=== PATIENT | female | born 1960 | race Caucasian/White ===

== ENCOUNTER 2024-10-10 12:37 | Outpatient (REF) | payer MEDICARE, SELFPAY ==
--- OUTSIDE RECORDS SUMMARY | 2024-10-08 23:59 | XMS_ITS | Continuity of Care Document ---
Author Organization [facility] Address [address] [place] [address] [address] [place] [address]- Care Team Providers Care Accounting Coordinator Name Role Phone Ej Thomas MD Primary Care Physician [phone] Encounter [facility] Date(s): 09/08/24 - 10/08/[address] [place] [address]- us Attending Physician: Diane Ramos Admitting Physician: Diane Ramos Referring Physician: Diane Ramos Encounter Type: Triage Allergies, Adverse Reactions, Alerts No Known Allergies Medications Percocet-5 Tablet 2, tablet, By Mouth, Every 4 hours, # 30 tablet, Tot. Refills 0, 10/05/05 8:06:14 AM EDT Start Date: 10/05/05 Stop Date: 10/11/05 Status: Ordered Quantity: 30.0 Unit: tablet Repeat number: 1 traZODone 100 mg oral tablet 90 each, 0 Refill(s), TAKE 1 TABLET BY MOUTH EVERY DAY AT BEDTIME FOR 30 DAYS, Refills 0, 09/08/24 3:49:00 PM EDT, Partial fill upon patient request if the prescription is for a schedule II opioid drug. Start Date: 09/08/24 Status: Ordered Repeat number: 1 Social History Social History Type Response Smoking Status Never (less than 100 in lifetime) entered on: 09/08/24 Sex Sex Representation Female (finding) Patient Care team information Care Team Personnel Name: Ej Thomas MD Position: S Physician - Oncology Member Role: PCP Address: [address] [place] [address] [address] [place] [address] Telecom: Care Team Related Persons Name: SHARON PECK Name: PARENT, PHAM MCWILLIAMS Name: PARENT, SHIRAZ Insurance Providers Guarantor name: [employer] Health Plan Information #: 1 Payer: MEDICARE B Payer Identifier: FITZ Member Number: [id number] Group Number: [employer]Z Subscriber Identifier: [id number] Relationship to Subscriber: self Coverage Type: NA Coverage Verification Date: Telecom: Address:
[2024-10-10 13:08] LABS: MANUAL DIFF FLAG NO
--- OUTSIDE RECORDS SUMMARY | 2024-10-10 13:33 | XMS_ITS | Patient Health Record ---
Author Organization Ej Thomas III, MD Address [address] [address] Care Team Providers Care Vehicle Check In Clerk Name Role Phone Ej Thomas Primary Care Provider Allergies Allergen (clinical drug ingredient) Drug/Non Drug Allergy documented on EMR Reaction Allergy Type Onset Date Status amoxicillin Amoxicillin diarrhea Drug Allergy Act emanuel Sulfur nausea, headaches, stomach pain Drug Allergy Active Results Component Value Reference Range Notes PROFILE, RANDOM (COMPREHENSI VE METABOLIC) Reviewed date:05/09/2024 03:05:32 PM Interpretation: Performing Lab: Notes/Report: TSH (THYROID STIMULATING HOR DARLEEN) Reviewed date:05/09/2024 03:05:43 PM Interpretation: Performing Lab: Notes/Report: CBC WITH AUTO DIFF Reviewed date:05/09/2024 03:05:53 PM Interpretation: Performing Lab: Notes/Report: Free T4 (Free Thyroxine) Reviewed date:05/09/2024 03:06:07 PM Interpretation: Performing Lab: Notes/Report: Reason For Referral Reason Evaluate and Treat New Onset of Hoarseness of Voice Diagnosis 1 Hoarseness of voice (R49.0) Referral Organization Ej Thomas III, MD Referring Provider First Name Ej Referring Provider Last Name William Referring Provider Speciality Internal M edicine Referred Provider [facility], [facility], [facility] Referred Provider Specialty Otolaryngolo gy General Notes Wendi Loera 03/17/2024 02:51:44 PM > Referral, cover sheet and progress note faxed Referral Priority Routine Referral Appointment Date 06/14/2024 Reason EVALUATE AND TREATME NT 2.6 X 3X 3.4 CM THYROID NODULE ON LEFT SIDE biopsy needed Diagnosis 1 Thyroid nodule (E04. 1) Referral Organization Ej Thomas III, MD Referring Provider First Name Ej Referring Provider Last Name William Referring Provider Speciality Internal M edicine Referred Provider BOB FLAHERTY Referred Provider Specialty Endocrinolog y General Notes Carmen Zavala [facility] 06/09 01:31:35 PM > ref/demo/progress note/testing faxed to Dr Flaherty mine safety manager, Carmen Zavala CMA 06/09/2024 01:52:21 PM > pt has appt the Dr Flaherty on 06/15/2024 at 10am Referral Priority Routine Referral Appointment Date 06/15/2024 Medications Medication SIG (Take, Route, Frequency, Duration) Notes Start Date End Date Status Probiotic 250 MG as directed Orally Active Garcinia Cambogia-Chromium 500-200 MG-MCG as directed Orally Active Vitamin A 2400 MCG (8000 UT) 1 capsule with food or milk Orally Once a day Active traZODone HCl 100 MG TAKE 1 TABLET BY MOUTH EVERY DAY AT BEDTIME FOR 30 DAYS Active Magnesium 300 MG 1 capsule with a meal Orally Once a day Active Calcium 600 MG 1 tablet with meals Orally Twice a day Active Fish Oil 1000 MG 1 capsule Orally Once a day Active Vitamin E 100 UNIT as directed Orally Active Antioxidant - as directed Orally Active Vitamin C 500 MG as directed Orally Active Cephalexin 500 MG 1 capsule Orally every 6 hrs for 7 days has used in the past 10/10/2024 10/17/2024 Active Ibuprofen 200 MG 2 tablets with food or milk as needed Orally every 6 hrs 03/04/2018 Active Acetaminophen 325 MG 2 tablet as needed Orally every 6 hrs 03/04/2018 Active Estrogens, Conjugated 0.625 MG/GM 1 gram Vaginal in Urethra Twice a week Active Red Yeast Rice 600 MG as directed Orally Active ZyrTEC Allergy 10 MG 1 tablet Orally Once a day 03/04/2018 Active Immunizations Vaccine Route Administration Date Status Comme nts Influenza Unknown 01/11/2014 Administered PPD (Planted) Unknown 01/11/2014 Administered Tetanus and Diphtheria Toxoids Adsorbed IM Intramuscular 12/17/2015 Administered Influenza, quad IM Intramuscular 12/31/2021 Administered COVID 19 Moderna Unknown 04/12/2020 Administered Influenza-iiv4 p-free high dose Unknown 02/25/2021 Administered COVID 19 Moderna Unknown 05/10/2020 Administered COVID 19 Moderna Unknown 02/01/2021 Administered COVID-19 Moderna SPIKEVAX Unknown 04/24/2023 Administer ed COVID Moderna Bivalent Unknown 02/19/2022 Administered COVID-19 Moderna SPIKEVAX Unknown 04/24/2023 Administer ed Social History Tobacco Use: Social History Observation Description Date Details (start date - stop date) Never Smoker NA - NA Sex Assigned At : Social History Observation Description Sex Assigned At Female Tobacco Use/Smoking Question Answer Notes Patient is a nonsmoker Additional Findings: Tobacco Non-User Aggressive non-smoker Problems Problem Type SNOMED Code ICD Code Onset Dates Problem Status W/U Status Risk Notes Problem 304198557 Overweight (E66.3) Active confirmed Her body mass index is 27. She has lost 1 pound. We discussed diet and nutrition. We made a plan to lose weight at a rate of one half of a pound per week. Problem 358136824 Seizure disorder (G40.909) Active confirmed No further seizures have occurred in a prolonged period of time. Problem Hypothyroidism (77201482) Hypothyroidism, unspecified (E03.9) Active confirmed Thyroid function tests have been requested. No change in her regimen was made today. She has been compliant with her replacement therapy. Problem Hyperlipidemia (26310695) Hyperlipidemia, unspecified (E78.5) Active confirmed The current lipid profile shows her cholesterol values to be normal but the triglycerides are slightly elevated. I recommended a healthy, low animal fat diet with regular exercise and aggressive weight loss. No change in her medications was necessary. Problem 721592524 Thyroid nodule (E04.1) Active confirmed Endocrinology has referred her to head and neck surgery for surgical consultation which will take place to room 12 2024. A needle biopsy of this area was negative. Problem 538035847 Cervical disc disorder with radiculopathy (M50.10) Active confirmed The pain in her neck is almost gone. Her range of motion is normal. She has no numbness or tingling in her extremities. Problem 722872009 Allergic rhinitis, seasonal (J30.2) Active confirmed She has begun to notice peripheral allergies. She is going to use loratadine as needed and has a nasal spray, fluticasone. Problem Vocal cord paralysis (102780520) Vocal cord paralysis (J38.00) Active confirmed Her voice was very high-pitched and very faint after considerable exertion. I have ordered a CT scan of the larynx and a chest x-ray and an ENT consultation. She will rest her voice is much as possible. Close follow-up was arranged. Vital Signs Heart Rate 90 /min 05/06/2024 Temperature 98.6 degrees Fahrenheit 05/06/2024 Oximetry 94, 94.0 % 05/06/2024 Blood pressure diastolic 81 mm Hg 05/06/2024 Height 61 in 05/06/2024 Blood pressure systolic 133 mm Hg 05/06/2024 Weight 145 lbs 05/06/2024 BMI 27.39 kg/m2 05/06/2024 Encounters Encounter Location Date Provider Diagnosis Ej Thomas III, MD [address] [place] [address] [place] [address] 03/14/2024 Ej Thomas Hyperlipidemia, unspecified E78.5 ; Overweight E66.3 ; Cervical disc disorder with radiculopathy M50.10 ; Seizure disorder G40.909 and Skin lesion L98.9 Ej Thomas III, MD [address] [place] [address] [place] [address] 05/06/2024 Ej Thomas Hyperlipidemia, unspecified E78.5 ; Hypothyroidism, unspecified E03.9 ; Vocal cord paralysis J38.00 ; Cervical disc disorder with radiculopathy M50.10 ; Seizure disorder G40.909 ; Overweight E66.3 and Allergic rhinitis, seasonal J30.2 Ej Thomas III, MD [address] [place] [address] [place] [address] 07/18/2024 Ej Thomas Exposure to Streptococcal pharyngitis Z20.818 ; Allergic rhinitis, seasonal J30.2 ; Thyroid nodule E04.1 ; Hypothyroidism, unspecified E03.9 ; Overweight E66.3 ; Cervical disc disorder with radiculopathy M50.10 and Seizure disorder G40.909 Ej Thomas III, MD [address] [place] [address] [place] [address] 10/10/2024 Ej Thomas Urinary tract infection, site not specified N39.0 Ej Thomas III, MD [address] [place] [address] [place] [address] 05/27/2024 Ej Thomas III, MD [address] [place] [address] [place] [address] 06/02/2024 Ej Thomas Thyroid nodule E04.1 Ej Thomas III, MD [address] [place] [address] [place] [address] 06/08/2024 Ej Thomas III, MD [address] [place] [address] [place] [address] 06/15/2024 Ej Thomas III, MD [address] [place] [address] [place] [address] 06/22/2024 Ej Thomas III, MD [address] [place] [address] [place] [address] 07/18/2024 jE Thomas III, MD [address] [place] [address] [place] [address] 10/10/2024 Ej Thomas Assessments Encounter Date Diagnosis (ICD Code) Assessment Notes Treat ment Notes Treatment Clinical Notes 03/14/2024 Overweight (ICD-10 - E66.3) Her body mass index is 27. She has lost 1 pound. We discussed diet and nutrition. We made a plan to lose weight at a rate of one half of a pound per week. 03/14/2024 Hyperlipidemia, unspecified (ICD-10 - E78.5) The current lipid profile shows her cholesterol values to be normal but the triglycerides are slightly elevated. I recommended a healthy, low animal fat diet with regular exercise and aggressive weight loss. No change in her medications was necessary. 05/06/2024 Hypothyroidism, unspecified (ICD-10 - E03.9) Thyroid function tests have been requested. No change in her regimen was made today. She has been compliant with her replacement therapy. 05/06/2024 Hyperlipidemia, unspecified (ICD-10 - E78.5) The current lipid profile shows her cholesterol values to be normal but the triglycerides are slightly elevated. I recommended a healthy, low animal fat diet with regular exercise and aggressive weight loss. No change in her medications was necessary. 07/18/2024 Allergic rhinitis, seasonal (ICD-10 - J30.2) She has begun to notice peripheral allergies. She is going to use loratadine as needed and has a nasal spray, fluticasone. 07/18/2024 Exposure to Streptococcal pharyngitis (ICD-10 - Z20.818) She deeclined a prescription for amoxicillin saying it gave her diarrhea. I gave her a prescription for levofloxacin. 10/10/2024 Urinary tract infection, site not specified (ICD-10 - N39.0) 06/02/2024 Thyroid nodule (ICD-10 - E04.1) 03/14/2024 Cervical disc disorder with radiculopathy (ICD-10 - M50.10) The pain in her neck is almost gone. Her range of motion is normal. She has no numbness or tingling in her extremities. 05/06/2024 Vocal cord paralysis (ICD-10 - J38.00) Her voice was very high-pitched and very faint after considerable exertion. I have ordered a CT scan of the larynx and a chest x-ray and an ENT consultation. She will rest her voice is much as possible. Close follow-up was arranged. 07/18/2024 Thyroid nodule (ICD-10 - E04.1) Endocrinology has referred her to head and neck surgery for surgical consultation which will take place to room 12 2024. A needle biopsy of this area was negative. 03/14/2024 Seizure disorder (ICD-10 - G40.909) No further seizures have occurred in a prolonged period of time. 05/06/2024 Cervical disc disorder with radiculopathy (ICD-10 - M50.10) The pain in her neck is almost gone. Her range of motion is normal. She has no numbness or tingling in her extremities. 07/18/2024 Hypothyroidism, unspecified (ICD-10 - E03.9) Thyroid function tests have been requested. No change in her regimen was made today. She has been compliant with her replacement therapy. 03/14/2024 Skin lesion (ICD-10 - L98.9) Both of these skin lesions appear to be benign. 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 05/06/2024 Seizure disorder (ICD-10 - G40.909) No further seizures have occurred in a prolonged period of time. 07/18/2024 Overweight (ICD-10 - E66.3) Her body mass index is 27. She has lost 1 pound. We discussed diet and nutrition. We made a plan to lose weight at a rate of one half of a pound per week. 05/06/2024 Overweight (ICD-10 - E66.3) Her body mass [...] no numbness or tingling in her extremities. 05/06/2024 Allergic rhinitis, seasonal (ICD-10 - J30.2) She has begun to notice peripheral allergies. She is going to use loratadine as needed and has a nasal spray, fluticasone. 07/18/2024 Seizure disorder (ICD-10 - G40.909) No further seizures have occurred in a prolonged period of time. Plan Of Treatment Pending Test Test Name Order Date URINE DIP STICK 07/18/2020 PROFILE, FASTING (COMPREHENSIVE METABOLI C) 07/02/2022 PROFILE, FASTING (COMPREHENSIVE METABOLI C) 12/19/2020 PROFILE, FASTING (COMPREHENSIVE METABOLI C) 06/08/2023 PROFILE, FASTING (COMPREHENSIVE METABOLI C) 12/31/2021 PROFILE, FASTING (COMPREHENSIVE METABOLI C) 03/14/2024 PROFILE, FASTING (COMPREHENSIVE METABOLI C) 01/15/2023 PROFILE, FASTING (COMPREHENSIVE METABOLI C) 06/24/2021 PROFILE, FASTING (COMPREHENSIVE METABOLI C) 10/07/2023 PROFILE, FASTING (COMPREHENSIVE METABOLI C) 06/18/2020 PROFILE, FASTING (COMPREHENSIVE METABOLI C) 09/16/2019 PROFILE, RANDOM (COMPREHENSIVE METABOLIC ) 07/01/2019 LIPID PANEL 06/18/2020 LIPID PANEL 07/18/2020 LIPID PANEL 09/16/2019 LIPID PANEL 07/02/2022 LIPID PANEL 12/31/2021 LIPID PANEL 10/07/2023 GGT 09/16/2019 GGT 07/01/2019 CBC w DIFF 10/07/2023 CBC w DIFF 06/18/2020 CBC w DIFF 12/19/2020 CBC w DIFF 09/16/2019 CBC w DIFF 07/02/2022 CBC w DIFF 07/01/2019 CBC w DIFF 12/31/2021 CBC w DIFF 01/15/2023 CBC w DIFF 06/24/2021 SED RATE (ESR) 09/16/2019 URINE CULTURE 12/30/2022 CT NECK WITH CONTRAST 05/06/2024 XR CHEST 2 VIEW PA & LAT 05/06/2024 VITAMIN D 25-OH TOTAL 12/31/2021 CBC WITH AUTO DIFF 06/08/2023 CBC WITH AUTO DIFF 03/14/2024 Urinalysis 10/10/2024 Lipid Panel 01/15/2023 Lipid Panel 06/24/2021 Lipid Panel 12/19/2020 Lipid Panel 06/08/2023 Lipid Panel 03/14/2024 Varicella IgG Antibody 03/14/2024 Urine Culture 01/19/2023 Urine Culture 10/10/2024 US thyroid 06/02/2024 Next Appt Details Provider Name:Ej Thomas, 10/12/2024 04:00:00 PM, [address] [place] [address] DR [address]IM [place], [place], [address], Insurance Providers Payer Name Payer Address Payer Phone Subscriber Number Group Number Insured Name Patient Relationship to Insured Coverage Start Date Coverage End Date [employer] [address] [place] [address] [id number] Danielle Bañuelos Self - patient is the insured Medical (General) History Medical History History ICD Code [id number] seasonal allergies seizure disorder age 14, no longer treat ed eczema cervical radiculopathy glaucoma Surgical History Surgery Date(Month/Year) No history root canal 09/2023 Hospitalization History Reason Date(Month/Year) No history
--- OUTSIDE RECORDS SUMMARY | 2024-10-10 13:33 | XMS_ITS | Data Portability ---
Author Organization [place] - [facility], Allergy Address [address] [address] Care Team Providers Care Pressroom Worker Name Role Phone ALE ALLEN Referring Provider [phone] Assessment No assessment recorded. Plan of Treatment Reminders Order Date Submit Date Provider Last Modified By Organization Details Last Modified Time Details Appointments None record ed. Lab None record ed. Referral None record ed. Procedures None record ed. Surgeries None record ed. Imaging None record ed. Medication Orders None record ed. Patient TargetsNo targets recorded. Patient InstructionsNo instructions recorded. Reason for Referral None Reported. Results Created Date Observation Date Name Description Value Unit Range Abnormal Flag Note LastModifiedBy Organization Detail LastModifiedTime 06/15/1905/25/2024 CT, neck, soft tissu e, w/ contr ast No observ ation [facility] ed[facility] [address] [facility], [place], [address], 06/14/2024 12:05:18 07/19/19 25 06/14/2024 CT, neck, soft tissu e, w/ contr ast No observ ation record ed. [email or web address] Not Available 2024 14:16:57 Result Notes None recorded. Problems Name Problem SNOMED Code Status Onset Date Resolution Date Notes Provider Name and Address Organization Details Recorded Time Chronic hoarseness 4661775149624 Active 2024 SYLVAIN DURHAM MD 100 [facility] [address], [place], [address], [place] - [facility] 10:35:44 Thyroid nodule 726325949 Active 2024 SYLVAIN DURHAM MD 100 [facility], [address], [place], [address], [facility] - [facility] 08:07:09 Problem Notes None recorded. Procedures Surgical History Date Name Laterality Status Provider Name and Address Organization Details Recorded Time 06/15/19 25 Fiberoptic Laryngoscopy (Comprehensive) completed SYLVAIN DURHAM MD 100 [facility] [address], [place], [address], [facility] - [facility] 06/16/2024 08:07:02 Imaging Results None recorded. Procedure Notes None recorded. Medical Equipment None Reported. Allergies Allergen ID Allergen Name Allergen Category Reaction Reaction Severity Criticality Documentation Date Start Date Code Code System Note Provider Name and Address Organization Details Recorded Time 802666 Substance with sulfonami de structure and antibacte rial mechanism of action (substanc e) medicatio n Not available Not available Not available 06/14/2024 00458 8003 SNOMED Genie watson [facility] 10:04:17 Medications Name Sig Start Date Stop Date Status Note LastModified by Organization Details LastModified Time azithromyci n 250 mg tablet TAKE 2 TABLETS BY MOUTH TODAY, THEN TAKE 1 TABLET DAILY FOR 4 DAYS DIRECTED 06/14 completed Not Available Not Available Not Available trazodone 100 mg tablet TAKE 1 TABLET BY MOUTH EVERY DAY AT BEDTIME FOR 30 DAYS active Not Available Not Available No t Available omeprazole 20 mg capsule,del ayed release Take 1 capsule every day by oral route. active Not Available Not Available No t Available Vitals Date Recorded Body height Body mass index (BMI) Body weight Provider Name and Address Organization Details Last Updated DateTime 06/14/2024 152.4 cm 28.5 kg/m2 51597.49 tete Cronin [place] - [facility] 06/14/2024 10:04:05 Social History None recorded. Functional Status None recorded. Mental Status None recorded. Family History Nothing Reported. Medical History No medical history recorded. Gynecological HistoryNo gynecological history recorded. Obstetrics History GPAL:G 0 P 0 0 0 0 Past Encounters Encounter ID Performer Location Encounter Start Date Encounter Closed Date Diagnosis/Indication Diagnosis SNOMED-CT Code Diagnosis ICD10 Code Diagnosis Note [id number] SYLVAIN DURHAM MD [facility] on [address] [place] [address] 06/14/2024 09:46:39 06/14/2024 10:40:33 Chronic hoarseness 3331149458 105 R49.0 Thankfully , her hoarseness improved after starting on omeprazole and with several supplement s. I do not see significan t reflux changes on exam. Cords are symmetric and mobile. We discussed non pharmacolo gical treatment of reflux. We discussed considerat ion of alginic acid. I did recommend that if she comes off the omeprazole and her voice worsens that she restarted. Thyroid nodule 455796593 E04.1 There is no vocal cord paralysis on exam. The larynx does not appear displaced. She has consult tomorrow with endocrinol ema. She has several questions regarding the nodule, and I would defer to their expertise. Health Concerns Section Related Observation LastModified by Organization Detai ls LastModified Time None Recorded Concern Status LastModified by Organization Details LastModified Time None Recorded Advance Directives Directive None Recorded Payers Insurance Date Sequence Insurance Name Policy Number Policy Arce Covered Member ID Arce Member ID Guarantor Name 07/25/2024 1 [employer] [id number] Danielle Bañuelos [id number] 1 Danielle Bañuelos Notes Date Note Type Note Provider Name and Address Organization Details Recorded Time 06/14/2024 text/html 63 yo F presents for some voice changes a couple years agoPCP put on omeprazolehas thyroid nodulevoice better now with some supportive supplements and omeprazolegetting biopsy of the thyroidseeing Dr. Shrestha from endocrinology, had US showing 2.6 x 3.4 x 3 noduleCT neck 05/25/24 reviewed. Larynx not well evaluated due to patient motion. SYLVAIN DURHAM MD [address] [place] [address], [place], [address], [place] - [facility] 06/16/2024 08:09:59 OBGyn Episode No OBEpisode recorded.
--- OUTSIDE RECORDS SUMMARY | 2024-10-10 13:33 | XMS_ITS | Clinical Summary ---
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 Active CYANOCOBALAMIN, VITAMIN B-12, ORAL Take by mouth. Active estradioL (ESTRACE) 0.01 % (0.1 mg/gram) vaginal cream 06/13/2021 Activ e garlic 100 mg tablet Take by mouth. Active calcium carb/mag carb/folic ac (MAGNESIUM-CALC IUM-FOLIC ACID ORAL) Take by mouth. Active ascorbic acid (VITAMIN C ORAL) Take by mouth. Active VITAMIN A ORAL Take 10,000 Units by mouth daily. Active traZODone (DESYREL) 100 mg tablet Take 0.5 tablets (50 mg total) by mouth at bedtime as needed for sleep. at bedtime for 30 days 10/07/2023 Active VITAMIN B COMPLEX ORAL Active vitamin E, dl,tocopheryl acet, (vitamin E, dl, acetate,) 45 mg (100 unit) capsule 400 units per pt Active BILBERRY ORAL Take by mouth. Active ZINC ORAL 15 mg Active omega 4-okt-clf-fish oil (Fish OiL) 1,000 (120-180) mg capsule 1 capsule (1,000 mg total) 1 (one) time each day at the same time. Active red yeast rice 600 mg capsule as directed Orally Active saccharomyces boulardii (FLORASTOR) 250 mg capsule as directed Orally Active Surgical History Surgery Date Site/Laterality Comments ABDOMINAL SURGERY PROCEDURE: HI UNLISTED PROCEDURE ABDOMEN PERITONEUM & OMENTUM; COMMENT: left oopherectomy for large cyst as well as appendectomy Medical History Medical History Date Comments Renal stones DX:Renal stones UTI (urinary tract infection) DX :UTI (urinary tract infection) Chronic back pain DX:Chronic autumn k pain Family History Medical History Relation Name Comments Melanoma Brother Lung cancer Father smoker Other cancer Maternal Grandmother cervica l or uterine Diabetes Mother pneumonia reaso n for passing Breast cancer Neg Hx Colon cancer Neg Hx Kidney cancer Neg Hx Ovarian cancer Neg Hx Pancreatic cancer Neg Hx Relation Name Status Comments Brother Father Maternal Grandmother Mother Social History Tobacco Use Types Packs/Day Years Used Date Smoking Tobacco: Never Smokeless Tobacco: Never Tobacco Cessation:Counseling Given: Not Answered Alcohol Use Standard Drinks/Week Comments Yes 0 (1 standard drink = 0.6 oz pur e alcohol) Comments Unknown Sex and Gender Information Value Date Recorded Sex Assigned at Female 05/10/2024 2:42 PM EST Legal Sex Female 8:55 PM EST Gender Identity Female 05/10/2024 2:42 PM EST Sexual Orientation Straight 05/10/2024 2: 42 PM EST Obstetrics History Para Term AB IAB SAB Ectopic Multiple Livin g Live Births 2 2 2 2 2 Date Outcome GA Total Labor Labor/2nd/3rd Weight Sex Type Anes PTL Angela A1 A5 Name Clin Term Vag-S pont Living Term Vag-S pont Living Last Filed Vital Signs Vital Sign Reading Time Taken Comments Blood Pressure 132/68 07/07/2024 9:35 AM EDT Pulse 72 07/07/2024 9:35 AM EDT Temperature 35.9 C (96.6 F) 07/07/2024 9:35 AM EDT Respiratory Rate 14 02/10/2024 3:53 PM EST Oxygen Saturation - - Inhaled Oxygen Concentration - - Weight 67 kg (147 lb 12.8 oz) 06/16/2024 10:53 A M EDT Height 152.4 cm (5') 06/16/2024 10:53 AM EDT Body Mass Index 28.87 06/16/2024 10:53 AM EDT Plan of Treatment Health Maintenance Due Date Last Done Comments Pneumococcal Vaccine: 50+ Years (1 of 1 - PCV) 07/26/2009 Zoster Vaccines (1 of 2) 07/26/2009 Colorectal Cancer Screening: Colonoscopy 05/05/2019 Depression Screening 05/05/2019 Hepatitis C Screening 05/05/2019 Osteoporosis Screening (Bone Density Screening) 05/05/2019 Social Influencers of Health Screening 05/05/2019 COVID-19 Vaccine ( season) 2023 04/24/2023, 02/19/2022, 02/01/2021, Additional history exists Falls Risk Assessment 07/26/2024 Influenza Vaccine (#1) 2024 12/31/2021, 2020 Cervical Cancer Screening: HPV 12/12/2024 12/13/2019 Breast Cancer Screening 12/14/2025 12/15/19 24, 05/10/2020, 09/20/2018 DTaP,Tdap,and Td Vaccines (2 - Td or Tdap) 12/16/2025 12/17/2015 Cholesterol Screening (Lipid Panel) 03/08/2029 03/08/2024 RSV Immunization Adult Patients (1 - 1-dose 75+ series) 07/26/2034 HIB Vaccines Aged Out No longer eligi ble based on patient's age to complete this topic HPV Vaccines Aged Out No longer eligi ble based on patient's age to complete this topic Hepatitis A Vaccines Aged Out No long er eligible based on patient's age to complete this topic Hepatitis B Vaccines Aged Out No long er eligible based on patient's age to complete this topic IPV Vaccines Aged Out No longer eligi ble based on patient's age to complete this topic MMR Vaccines Aged Out No longer eligi ble based on patient's age to complete this topic Meningococcal ACWY Vaccine Aged Out N o longer eligible based on patient's age to complete this topic Meningococcal B Vaccine Aged Out No l onger eligible based on patient's age to complete this topic RSV Immunization Patients Under 20 months Aged Out No longer eligible based on patient's age to complete this topic Varicella Vaccines Aged Out No longer eligible based on patient's age to complete this topic Procedures Procedure Name Priority Date/Time Associated Diagnosis Comments LIPID PANEL WITH REFLEX TO DIRECT LDL Routine 03/08/2024 12:30 PM EST Hyperlipidemia Excess weight ERIN SCREENING DIGITAL Routine 12/15/2023 3:45 PM EDT Encounter for screening mammogram for malignant neoplasm of breast HM HPV Routine 12/13/2019 from Last 3 Months or Most Recently Relevant to Health Maintenance Results * (ABNORMAL) Lipid panel with reflex to direct LDL (03/08/2024 12:30 PM EST) Cholesterol 250(H) 0 - 200 mg/dL LAB CHEMISTRY METHOD 03/08/2024 4:32 PM EST [facility] Triglycerides 206(H) 0 - 150 mg/dL LAB CHEMISTRY METHOD 03/08/2024 4:32 PM EST [facility] HDL 64 >=40 mg/dL LAB CHEMISTRY METHOD 03/08/2024 4:32 PM EST [facility] LDL Calculated 145(H) 0 - 100 mg/dL LAB CHEMISTRY METHOD 03/08/2024 4:32 PM EST [facility] VLDL Cholesterol Vidal 41.2 mg/dL LAB CHEMISTRY METHOD 03/08/2024 4:32 PM EST [facility] Non HDL Chol. (LDL+VLDL) 186(H) <145 mg/dL LAB CHEMISTRY METHOD 03/08/2024 4:32 PM EST [facility] Chol/HDL Ratio 3.9 0.0 - 4.4 LAB CHEMISTRY METHOD 03/08/2024 4:32 PM EST [facility] Blood Venous blood specimen / Unknown Venipuncture / Unknown 03/08/2024 12:30 PM EST 03/08/2024 1:33 PM EST us Ale Thomas MD LAB BLOOD ORDERABLES Final Res ult [facility] [address] [place] [address], * [facility] SCREENING DIGITAL (12/15/2023 3:45 PM EDT) Anatomical Region Laterality Modality Mammography 12/15/2023 2:56 PM EDT Narrative 12/15/2023 3:45 PM EDT [facility] Diagnostic Imaging Department [address] [place] [address] Patient: ADELAARTIS Angeles./Age/Sex: 1960 - 63 - F Unit#: [id number] Location/Status: [facility] CLI Mnemonic/Ordering Site: [facility] Ordering Physician: ALE THOMAS MD [facility] Screening Digital - 12/15/23 - 1521 Report Status:Signed EXAM: [facility] Screening Digital EXAM DATE AND TIME: 12/15/2023 3:21 PM HISTORY: Screening. COMPARISON: 05/10/20, 09/20/18, 03/17/17 TECHNIQUE: Bilateral digital breast tomosynthesis was performed in the CC and MLO projections. Computer aided detection with RaftOut 3D 3.1 was employed. TISSUE DENSITY: b. There are scattered areas of fibroglandular density. FINDINGS: No suspicious masses, grouped microcalcifications, or areas of architectural distortion are seen. The skin and vascularity are unremarkable. IMPRESSION: Stable mammographic appearance of the breasts. No evidence of malignancy is seen. A negative mammogram in the presence of a clinically suspicious palpable abnormality does not preclude the possibility of malignancy or alter the indications for biopsy. BI-RADS: Category 1: Negative RECOMMENDATION(S): 1: Routine screening mammogram BILATERAL in 1 year. [facility] performed [facility] [address] [place] [address] Dictating Physician: SOSA BONE MD Electronically Signed by: SOSA BONE MD Dic Date/Time: 12/15/231543 Sign date/Time: 12/15/231544 Procedure Note Sosa Bone MD - 01/13/2024 [facility] Diagnostic Imaging Department [address] [place] [address] Patient: ADELAARTIS./Age/Sex: 1960 - 63 - F Unit#: [id number] Location/Status: [facility] Mnemonic/Ordering Site: [facility] Ordering Physician: ALE THOMAS MD [facility] Screening Digital - 12/15/23 - 1521 Report Status:Signed EXAM: [facility] Screening Digital EXAM DATE AND TIME: 12/15/2023 3:21 PM HISTORY: Screening. COMPARISON: 05/10/20, 09/20/18, 03/17/17 TECHNIQUE: Bilateral digital breast tomosynthesis was performed in the CCand MLO projections. Computer aided detection with RaftOut 3D 3.1was employed. TISSUE DENSITY: b. There are scattered areas of fibroglandular density. FINDINGS: No suspicious masses, grouped microcalcifications, or areas ofarchitectural distortion are seen. The skin and vascularity are unremarkable. IMPRESSION: Stable mammographic appearance of the breasts. No evidence of malignancyis seen. A negative mammogram in the presence of a clinically suspicious palpable abnormality does not preclude the possibility of malignancy or alter the indications for biopsy. BI-RADS: Category 1: Negative RECOMMENDATION(S): 1: Routine screening mammogram BILATERAL in 1 year. 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
[2024-10-10 13:41] LABS: Hematocrit 42.8 % (37.0-47.0); Hemoglobin 14.7 g/dl (12.0-16.0); Imm Gran Abs Auto 0.04 X10*3/uL (0.00-0.03); Imm Gran Pct Auto 0.4 % (0.0-0.4); Lymphocytes Absolute Auto 1.7 X10*3/uL (1.2-4.9); Mean Corpuscular HGB Conc 34.3 g/dl (31.0-35.0); Mean Corpuscular Hemoglobin 30.4 pg (27.0-33.0); Mean Corpuscular Volume 88.4 fL (80.0-98.0); NRBC Abs Auto 0.000 X10*3/uL (0.0-0.012); NRBC Pct Auto 0.0 /100WBC (0.0-0.2); Platelet Count 244 X10*3/uL (160-400); Red Blood Count 4.84 X10*6/uL (4.20-5.50); White Blood Count 10.6 X10*3/uL (4.8-10.8)
[2024-10-10 14:03] LABS: Appearance Urine Clear; Glucose Urine UA Negative (Negative); PH 6.5 (5.0-9.0); Specific Gravity - Urine <= 1.005 (1.005-1.025); UMIC TRIGGER UA YES
[2024-10-10 14:36] LABS: Alanine Aminotransferase 32 U/L (0-31); Albumin Level 4.6 g/dL (3.5-5.0); Alkaline Phosphatase 80 U/L (39-117); Anion Gap 11 (12-20); Aspartate Amino Transferase 29 U/L (5-31); Blood Urea Nitrogen 14 mg/dL (9-16); Calcium 9.3 mg/dL (8.4-10.2); Carbon Dioxide 24 mmol/L (22-29); Chloride 106 mmol/L (96-108); Cholesterol 242 mg/dL (<200); Estimated Glomerular Filt Rate > 60; HDL Cholesterol 54 mg/dL (>40); Potassium 4.4 mmol/L (3.3-5.1); Sodium 137 mmol/L (135-145); Total Protein 7.2 g/dL (6.5-8.0); Triglycerides 161 mg/dL (<150)
== END 2024-10-10 12:38 | disposition home or self-care (01) ==
LOC: HO.LAB 12:37
PROVIDERS: PCP Internal Medicine Medical Oncology; Visit Provider Internal Medicine Medical Oncology
DX: E66.3 Overweight (principal); T75.89XA Other specified effects of external causes, initial encounter; N39.0 Urinary tract infection, site not specified; E78.5 Hyperlipidemia, unspecified
CPT/HCPCS: 36415; 80053; 80061; 81001; 85025; 86787; 87086; 87088; 87186

== ENCOUNTER → 2024-12-20 08:45 | Outpatient (BNV) | payer MEDICARE, SELFPAY | PROVIDERS: PCP Internal Medicine Medical Oncology; Visit Provider Radiology Body Imaging | DX: E28.39 Other primary ovarian failure (principal) | CPT/HCPCS: 77080 ==

== ENCOUNTER 2024-12-20 08:46 | Outpatient (REF) | payer MEDICARE, SELFPAY ==
--- OUTSIDE RECORDS SUMMARY | 2024-10-10 06:26 | XMS_ITS ---
Author Organization Ej Thomas III, MD Address [address] [place] [address] Care Team Providers Care Antenna Engineer Name Role Phone Dr. Ej Thomas III Primary Care Provider Results Component Value Reference Range Notes Urine Culture Reviewed date:10/12/2024 02:45:58 PM Interpretation: Performing Lab:[facility], [address] [place] [phone] Notes/Report: O:ESCCOL Escherichia coli Urine Culture Quant Urine Culture > 100,000 cfu/mL Ampicillin <=2 Cefazolin (Urine) <=1 Cefepime <=0.12 Ceftriaxone <=0.25 Ciprofloxacin <=0.06 Gentamicin <=1 Nitrofurantoin <=16 Trimethoprim/Sulfamethoxazole <=20 REASON FOR VISIT ? UTI Social History Sex Assigned At : Social History Observation Description Sex Assigned At Female Encounters Encounter Location Date Provider Diagnosis Ej Thomas III, MD [address] [place] [address] [place] [address] 10/10/2024 Ej Thomas Urinary tract infection, site not specified N39.0 Assessments Encounter Date Diagnosis (ICD Code) Assessment Notes Treatment Notes Treatment Clinical Notes 10/10/2024 Urinary tract infection, site not specified (ICD-10 - N39.0) Plan Of Treatment Pending Test Test Name Order Date Urinalysis 10/10/2024 Next Appt Details Provider Name:Ej Thomas , 01/11/2025 02:30:00 PM, [address] [place] [address] [place], [address], Provider Name:Ej Thomas , 10/16/2025 02:00:00 PM, [address] [place] [address] [address], [place], [address], Progress Notes * Danielle BAÑUELOSDOB:1960 (64 yo F)Acc No.[id number]:10/10/2024 Patient: Danielle GONZALEZ :1960 A ge:64 Y S ex:Female [facility] [place] [address] Subjective: * Chief Complaints: * ? UTI * Medical History: * Surgical History: * Hospitalization/Major Diagno stic Procedure: * Medications: Objective: * Vitals: * Physical Examination: Assessment: * Assessment: 1. U rinary tract infection, site not specified - N39.0 Plan: * Treatment: * Procedure Codes: * true * Date: Generated for Yaritza zayas/Puneet/Ninasmitting on: 0 12/20/2024 09:50 AM EDT
--- OUTSIDE RECORDS SUMMARY | 2024-10-10 07:00 | XMS_ITS ---
Author Organization Ej Thomas III, MD Address [address] [facility] [place] [address] Care Team Providers Care Healthcare Administration Intern Name Role Phone Dr. Ej Thomas III [...] Date Provider Diagnosis Ej Thomas III, MD [address] [place] [address] [place] [address] 10/10/2024 Ej Thomas Plan Of Treatment Medication Medication Name Sig Start Date Stop Date Notes Cephalexin 500 MG 1 capsule Orally leandra ry 6 hrs for 7 days 10/10/2024 10/17/2024 has used in the past Next Appt Details Provider Name:Ej Thomas , 01/11/2025 02:30:00 PM, [address] [place] [address] [place], [address], Provider Name:Ej Thomas , 10/16/2025 02:00:00 PM, [address] [place] [address] [place], [address], Progress Notes * Danielle BAÑUELOSDOB:1960 (64 yo F)Acc No.[id number]:10/10/2024 Patient: Danielle GONZALEZ :1960 A ge:64 Y S ex:Female [place] [place] [place] [address] * Refills Start Cephalexin Capsule, 500 MG, Orally, 28 Capsule, 1 capsule, every 6 hrs, 7 days, Refills=0 * true * Date: Generated for Yaritza zayas/Puneet/Alizeitting on: 0 12/20/2024 09:50 AM EDT
--- OUTSIDE RECORDS SUMMARY | 2024-10-12 10:00 | XMS_ITS ---
Author Organization Ej Thomas III, MD Address [address] [place] [address] Care Team Providers Care Food Tray Assembler Name Role Phone Dr. Ej Thomas III Primary Care Provider [phone] Allergies Allergen (clinical drug ingredient) Drug/Non Drug [...] Provider Speciality Internal M edicine Referred Organization [facility] Referred Provider [facility] er, ART COORDINATOR & Midwifery Referred Address [address] [place] [id number], Referred Provider Specialty OB - Gynecol ogy General Carmen Martinez [facility] 10/26 01:41:41 PM >ref/demo/progress note /labs faxed to Lucas WILEY Suzanne CMA 11/17/2024 02:22:41 PM > Called Eugenio WILEY [phone] spoke to Ana she stated pt has [...] Problem Status W/U Status Risk Notes Problem 46042414 Postmenopausal (Z78.0) Active confirmed She is under [...] Date Provider Diagnosis Ej Thomas III, MD [address] [place] [address] [place] [address] 10/12/2024 Ej Thomas Overweight E66.3 ; Thyroid [...] She is under the care of her unix architect. She has had no vaginal bleeding. She [...] HCl 100 MG TAKE 1 TABLET BY [facility] EVERY DAY AT BEDTIME FOR 30 DAYS [...] and treatment yearly pelvic and pap smear, ART COORDINATOR & Midwifery [facility], [address] [place] [address], [place], [place], [phone], Next Appt Details Follow Up: 3 Months, Reason: ov review labs Provider Name:Ej Thomas , 01/11/2025 02:30:00 PM, [address] [place] [address] [place], [address], Provider Name:Ej Thomas , 10/16/2025 02:00:00 PM, [address] [place] [address] [address], [place], [address], Progress Notes * Juan CHAPMAN:1960 (64 yo F)Acc No.[id number]:10/12/2024 Progress Notes Patient: Danielle GONZALEZ Provider: Buster Thomas MD :1960 A ge:64 Y S ex:Female Date:10/12/2024 [facility] Subjective: * Chief Complaints: * A nnual exam * HPI: D epression Screening: She returns at the age of 64 for her annual physical examination. A recent urinary tract infection has been successfully treated with cephalexin. She is on a new Ghanaian diet to lose weight. She has seen an ENT surgeon about her thyroid and a hemithyroidectomy is planned for February 2025. 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 Otherwise she seems healthy and well. [...] ggressive non-smoker S he was born in [place], [place]. She has one daughter. She is [...] Wt-k.59. * P ast Orders: L ab:Comprehensive [place]. Panel Fast (Order Date - 10/10/2024) (Collection [...] Blood Small (1+) A Negative - Specific [place] - Urine <= 1.005 1.005-1.025 - Urine [...] :She is under the care of her unix architect. She has had no vaginal bleeding. She [...] 30 DAYS. ? Referral To:[facility] OB - Gynecology Reason:evaluate and treatment yearly [...] MD Date: 0 10/12/2024 Generated for Yaritza zayas/Puneet/Alizeitting on: 12/20/2024 09:50 AM EDT History and Physical Notes * [...] Referred Provider Not es 10/12/2024 Ej Thomas [facility], ART COORDINATOR & Midwifery evaluate and treatment yearly pelvic and pap smear
--- OUTSIDE RECORDS SUMMARY | 2024-12-06 10:58 | XMS_ITS ---
Author Organization Ej Thomas III, MD Address [address] [facility] [place] [address] Care Team Providers Care Spinner Cap Frame Name Role Phone Dr. Ej Thomas III Primary Care Provider REASON FOR VISIT UTI Rx Request Social History Sex Assigned At : Social History Observation Description Sex Assigned At Female Encounters Encounter Location Date Provider Diagnosis Ej Thomas III, MD [address] [place] [address] [place] [address] 12/06/2024 Ej Thomas Plan Of Treatment Next Appt Details Provider Name:Ej Thomas , 01/11/2025 02:30:00 PM, [address] [place] [address] [place], [address], Provider Name:Ej Thomas , 10/16/2025 02:00:00 PM, [address] [place] [address] [place], [address], Progress Notes * DURGADanielle BROCKDOB:1960 (64 yo F)Acc No.[id number]:12/06/2024 Patient: Danielle GONZALEZ :1960 A ge:64 Y S ex:Female Address: [place] [address] * true * Date: Generated for Printi ng/Faxing/eTransmitting on: 0 12/20/2024 09:50 AM EDT
--- OUTSIDE RECORDS SUMMARY | 2024-12-06 11:13 | XMS_ITS ---
Author Organization Ej Thomas III, MD Address [address] [facility] [place] [address] Care Team Providers Care Paint Formulator Name Role Phone Dr. Ej Thomas III [...] Date Provider Diagnosis Ej Thomas III, MD [address] [place] [address] [place] [address] 12/06/2024 Ej Thomas Plan Of Treatment Medication Medication Name Sig Start Date Stop Date Notes Nitrofurantoin Monohyd Macro 100 MG 1 capsule with food Orally every 12 hrs for 7 days 12/06/2024 12/13/2024 Next Appt Details Provider Name:Ej Thomas , 01/11/2025 02:30:00 PM, [address] [place] [address] [place], [address], Provider Name:Ej Thomas , 10/16/2025 02:00:00 PM, [address] [place] [address] [place], [address], Progress Notes * Danielle BAÑUELOSDOB:1960 (64 yo F)Acc No.[id number]:12/06/2024 Patient: Danielle GONZALEZ :1960 A ge:64 Y S ex:Female Address: [place] [address] * Refills Start Nitrofurantoin Monohyd Macro Capsule, 100 MG, Orally, 14 Capsule, 1 capsule with food, every 12 hrs, 7 days, Refills=0 * true * Date: Generated for Yaritza zayas/Puneet/Alizeitting on: 0 12/20/2024 09:51 AM EDT
--- NOTE | ~2024-12-20 | MM_ITS ---
STUDY: DUAL ENERGY X-RAY ABSORPTIOMETRY / DXA REASON FOR EXAM: Female, 64 years old M81.0 : Age-related osteoporosis TECHNIQUE: Bone Mineral Density (BMD) measurements of the lumbar spine and left hip were obtained using Nagi COMPARISON: None FINDINGS: L1-L4 BMD: 1.170 g/cm2 L1-L4 T score: -0.1. This corresponds to Normal bone density. Left femoral neck BMD: 1.050 g/cm2 Left femoral neck T score: 0.1. This corresponds to Normal bone density. Left total hip BMD: 1.071 g/cm2 Left total hip T score: 0.5. This corresponds to Normal bone density. MM/XR DEXA axial skeleton IMPRESSION: Normal bone density Reference Information: The T-score is the number of standard deviations above or below the standard which is normal for young adults at their peak bone mineral density. The World Health Organization (WHO) interprets the T-scores as follows: At or above -1 SD Normal bone density Between -1 and -2.5 SD Osteopenia At or below -2.5 SD Osteoporosis Electronically signed by: Noah Gonzalez MD 12/21/2024 07:38 AM EDT
--- OUTSIDE RECORDS SUMMARY | 2024-12-20 09:50 | XMS_ITS | Clinical Summary ---
Author Organization [facility] [address] [place] [address] Address [address] [place] [address] Phone Care Team Providers Care Occupational Therapist Aide Name Role Phone Ale Thomas MD Primary Care Provider [phone] Allergies Active Allergy Reactions Criticality Noted Date [...] Active ZINC ORAL 15 mg Active omega 7-bsi-kuo-fish oil (Fish OiL) 1,000 (120-180) mg capsule 1 capsule (1,000 mg total) 1 (one) time each day at the same time. Active red yeast rice 600 mg capsule as directed Orally Active saccharomyces boulardii (FLORASTOR) 250 mg capsule as directed Orally Active Surgical History Surgery Date Site/Laterality Comments ABDOMINAL SURGERY PROCEDURE: [place] UNLISTED PROCEDURE ABDOMEN PERITONEUM & OMENTUM; COMMENT: [...] 2) 07/26/2009 Colorectal Cancer Screening: Colonoscopy 05/05/2019 Hepatitis C Screening 05/05/2019 Osteoporosis Screening (Bone Density Screening) 05/05/2019 Social Influencers of Health Screening 05/05/2019 Depression Screening 03/30/2024 Falls Risk Assessment 07/26/2024 COVID-19 Vaccine ( season) 2024 04/24/2023, 02/19/2022, 02/01/2021, Additional history exists Influenza Vaccine (#1) 2024 12/31/2021, 2020 Cervical [...] LAB CHEMISTRY METHOD 03/08/2024 4:32 PM EST [facility] Triglycerides 206(H) 0 - 150 mg/dL LAB CHEMISTRY METHOD 03/08/2024 4:32 PM EST [facility] HDL 64 >=40 mg/dL LAB CHEMISTRY METHOD 03/08/2024 4:32 PM EST [facility] LDL Calculated 145(H) 0 - 100 mg/dL LAB CHEMISTRY METHOD 03/08/2024 4:32 PM EST [facility] VLDL Cholesterol Vidal 41.2 mg/dL LAB CHEMISTRY METHOD 03/08/2024 4:32 PM EST [facility] Non HDL Chol. (LDL+VLDL) 186(H) <145 mg/dL LAB CHEMISTRY METHOD 03/08/2024 4:32 PM EST [facility] Chol/HDL Ratio 3.9 0.0 - 4.4 LAB CHEMISTRY METHOD 03/08/2024 4:32 PM EST [facility] Blood Venous blood specimen / Unknown Venipuncture / Unknown 03/08/2024 12:30 PM EST 03/08/2024 1:33 PM EST us Ale Thomas MD LAB BLOOD ORDERABLES Final Res ult [facility] [address] [place] [address], * [facility] SCREENING DIGITAL (12/15/2023 3:45 PM EDT) Anatomical Region Laterality Modality Mammography 12/15/2023 2:56 PM EDT Narrative 12/15/2023 3:45 PM EDT [facility] Diagnostic Imaging Department [address] [place] [address] Patient: ADELAARTIS Angeles./Age/Sex: 1960 - 63 - F Unit#: [id number] Location/Status: [facility] CLI Mnemonic/Ordering Site: [facility] Ordering Physician: ALE THOMAS MD [facility] Screening Digital - 12/15/23 - 1521 Report Status:Signed EXAM: [facility] Screening Digital EXAM DATE AND TIME: 12/15/2023 3:21 PM HISTORY: Screening. COMPARISON: 05/10/20, 09/20/18, 03/17/17 TECHNIQUE: Bilateral digital breast tomosynthesis was performed in the CC and MLO projections. Computer aided detection with Free & Clear 3D 3.1 was employed. TISSUE DENSITY: b. [...] Mammogram performed at [facility] [address] [place] [address] Dictating Physician: SOSA BONE MD Electronically Signed by: SOSA BONE MD Dic Date/Time: 12/15/231543 Sign date/Time: 12/15/23 1545 Procedure Note Sosa Bone MD - 01/13/2024 [facility] Diagnostic Imaging Department [address] [place] [address] Patient: ADELAARTIS./Age/Sex: 1960 - 63 - F Unit#: [id number] Location/Status: [facility] Mnemonic/Ordering Site: [facility] Ordering Physician: ALE THOMAS MD [facility] Screening Digital - 12/15/23 - 1521 Report Status:Signed EXAM: [facility] Screening Digital EXAM DATE AND TIME: 12/15/2023 3:21 PM HISTORY: Screening. COMPARISON: 05/10/20, 09/20/18, 03/17/17 TECHNIQUE: Bilateral digital breast tomosynthesis was performed in the CCand MLO projections. Computer aided detection with Free & Clear 3D 3.1was employed. TISSUE DENSITY: b. There [...] Mammogram performed at [facility] [place] [address] Dictating Physician: SOSA BONE MD Electronically Signed by: SOSA BONE MD Dic Date/Time: 12/15/231543 Sign date/Time: 12/15/231544 Ale Thomas MD IMG BI PROCEDURES Final Result * Cervical Cancer Screening: HPV (12/13/2019) Cervical Cancer Screening: HPV negative,a bstracted us Historical Provider HEALTH MAINTENANCE Final Result from Last 3 Months or Most Recently Relevant to Health Maintenance Insurance [employer] Care Teams Occupational Therapist Aide Relationship Specialty Start Date End Date Ale Thomas MD [address] [place] [id number] PCP - General Oncology 02/09/24
--- OUTSIDE RECORDS SUMMARY | 2024-12-20 09:50 | XMS_ITS | Patient Health Record ---
Author Organization Ej Thomas III, MD Address [address] [place] [address] Care Team Providers Care Cat Cracker Operator Name Role Phone Dr. Ej Thomas III [...] date:05/09/2024 03:06:07 PM Interpretation: Performing Lab: Notes/Report: Urine Culture Reviewed date:10/12/2024 02:45:58 PM Interpretation: Performing Lab:[facility], [address] [place] [phone] Notes/Report: O:ESCCOL Escherichia coli Urine Culture Quant Urine Culture > 100,000 cfu/mL Ampicillin <=2 Cefazolin (Urine) <=1 Cefepime <=0.12 Ceftriaxone <=0.25 Ciprofloxacin <=0.06 Gentamicin <=1 Nitrofurantoin <=16 Trimethoprim/Sulfamethoxaz ole <=20 Complete Blood Count Auto Di ff Reviewed date:10/12/2024 02:45:59 PM Interpretation: Performing Lab:[facility], [address] [place] [phone] Notes/Report: White Blood Count 10.6 4.8-10.8 X10*3/uL Red Blood Count 4.84 4.20-5.50 X10*6/uL Hemoglobin 14.7 12.0-16.0 g/dl Hematocrit 42.8 37.0-47.0 % Mean Corpuscular Volume 88.4 80.0-98.0 fL Mean Corpuscular Hemoglobin 30.4 27.0-33.0 pg Mean Corpuscular HGB Conc 34.3 31.0-35.0 g/dl Red Cell Distribution Width 12.6 11.0-16.0 % Platelet Count 244 160-400 X10*3/uL Mean Platelet Volume 10.1 9.4-12.3 fL Neutrophils Percent Auto 75.4 45-73 % Imm Gran Pct Auto 0.4 0.0-0.4 % Lymphocytes Percent Auto 15.6 20-40 % Monocytes Percent Auto 8.1 2-11 % Eosinophils Percent Auto 0.2 0-4 % Basophils Percent Auto 0.3 0-2 % NRBC Pct Auto 0.0 0.0-0.2 /100WBC Neutrophils Absolute Auto 8.0 2.0-8.3 x10*3/u L Imm Gran Abs Auto 0.04 0.00-0.03 X10*3/uL Lymphocytes Absolute Auto 1.7 1.2-4.9 X10*3/u L Monocytes Absolute Auto 0.9 0.1-1.2 X10*3/uL Eosinophils Absolute Auto 0.0 0.0-0.4 X10*3/u L Basophils Absolute Auto 0.0 0.0-0.2 X10*3/uL NRBC Abs Auto 0.000 0.0-0.012 X10*3/uL Urinalysis and Microscopic Reviewed date:10/12/2024 02:45:59 PM Interpretation: Performing Lab:[facility], [address] [place] [phone] Notes/Report: Color Urine Yellow Appearance Urine Clear PH 6.5 5.0-9.0 Glucose Urine UA Negative Negative mg/dL Urine Blood Small (1+) Negative Specific [place] - Urine <= 1.005 1.005-1.025 Urine Protein Negative Neg-Trace mg/dL Urine Ketones Negative Negative mg/dL Nitrite Urine Negative Negative Leukocyte Esterase Urine Large (3+) Negative RBC Urine 0-2 0-2 /HPF WBC Urine >50 0-5 /HPF WBC Clumps Urine Present Squamous Epithelial Cell Urine 0-2 0-2 /HPF Bacteria Urine 4+ None Seen Hyaline Casts Urine 0-2 0-2 /LPF Comprehensive [place]. Panel Fa st Reviewed date:10/12/2024 02:45:59 PM Interpretation: Performing Lab:[facility], [address] [place] [phone] Notes/Report: Sodium 137 135-145 mmol/L Potassium 4.4 3.3-5.1 mmol/L Chloride 106 96-108 mmol/L Carbon Dioxide 24 22-29 mmol/L Anion Gap 11 12-20 Blood Urea Nitrogen 14 9-16 mg/dL Creatinine 0.66 0.5-1.4 mg/dL Estimated Glomerular Filt Rate > 60 Chronic Kidney Disease: Estimated GFR < 60 mL/min/1.73m2 Severe Kidney Disease: Estimated GFR < 15 mL/min/1.73m2 Glucose Fasting 114 60-99 mg/dL A fasting glucose from 100-125 mg/dl is considered impaired (pre-diabetes). Calcium 9.3 8.4-10.2 mg/dL Bilirubin Total 0.5 0.0-1.0 mg/dL Aspartate Amino Transferase 29 5-31 U/L Alanine Aminotransferase 32 0-31 U/L Total Protein 7.2 6.5-8.0 g/dL Albumin Level 4.6 3.5-5.0 g/dL Alkaline Phosphatase 80 39-117 U/L Lipid Panel Reviewed date:10/12/2024 02:45:59 PM Interpretation: Performing Lab:[facility], [address] [place] [phone] Notes/Report: Triglycerides 161 <150 mg/dL Desirable Triglyceride: less than 150 mg/dL Borderline High Triglyceride 150-199 mg/dL High Triglyceride: 200-499 mg/dL Very High Triglyceride: greater than or equal to 5OO mg/dL Cholesterol 242 <200 mg/dL Desirable Cholesterol: less than 200 mg/dL Borderline High Cholesterol: 200-239 mg/dL High Cholesterol: greater than 239 mg/dL LDL Cholesterol Calculated 156 <100 mg/dL Desirable LDL: less than 100 mg/dL Near Optimal/Above Optimal LDL: 110-129 mg/dL Borderline High LDL: 130-159 mg/dL High LDL: 160-189 mg/dL Very High LDL: greater than or equal to 190 mg/dL HDL Cholesterol 54 >40 mg/dL Desirable HDL: greater than 40 mg/dL Note: This HDL assay may give artificially low results in patients with liver disease. Varicella IgG Antibody Reviewed date:10/14/2024 12:12:09 PM Interpretation: Performing Lab:[facility], [address] [place] [phone] Notes/Report: Varicella IgG Antibody 6.61 Signal to Cut-off S/CO Interpretation --------- <1.00 Negative - Antibody not detected > or = 1.00 Positive - Antibody detected A positive result indicates that the patient has antibody to VZV but does not differentiate between an active or past infection. The clinical diagnosis must be interpreted in conjunction with the clinical signs and symptoms of the patient. This assay reliably measures immunity due to previous infection but may not be sensitive enough to detect antibodies induced by vaccination. Thus, a negative result in a vaccinated individual does not necessarily indicate susceptibility to VZV infection. A more sensitive test for vaccination-induced immunity is Varicella Zoster Virus Antibody Immunity Screen, ACIF. THIS TEST WAS PERFORMED AT: [facility] [address] [place] [phone] DOUGLAS ACE MD Reason For Referral Reason Evaluate and Treat New Onset of Hoarseness of Voice Diagnosis 1 Hoarseness of voice (R49.0) Referral Organization Ej Thomas III, MD Referring Provider First Name Ej Referring Provider Last Name William Referring Provider Speciality Internal M edicine Referred Provider [facility], [facility] Referred Provider Specialty Otolaryngolo gy General Notes DWendi 03/17/2024 02:51:44 PM > Referral, cover sheet and progress note faxed Referral Priority Routine Referral Appointment Date 06/14/2024 Reason EVALUATE AND TREATME NT 2.6 X 3X 3.4 CM THYROID NODULE ON LEFT SIDE biopsy needed Diagnosis 1 Thyroid nodule (E04. 1) Referral Organization Ej Thomas III, MD Referring Provider First Name Ej Referring Provider Last Name Thomas Referring Provider Speciality Internal M edicine Referred Provider BOB FLAHERTY Referred Provider Specialty Endocrinolog y General Notes Carmen Zavala [facility] 06/09 01:31:35 PM > ref/demo/progress note/testing faxed to Dr Flaherty email developer, Carmen Zavala [facility] 06/09/2024 01:52:21 PM > pt has appt the Dr Flaherty on 06/15/2024 at 10am Referral Priority Routine Referral Appointment Date 06/15/2024 Reason evaluate and treatme nt yearly pelvic and pap smear Diagnosis 1 Annual physical exam (Z00.00) Referral Organization Ej Thomas III, MD Referring Provider First Name Ej Referring Provider Last Name Thomas Referring Provider Speciality Internal edicine Referred Organization [facility] nter Referred Provider [facility], [facility] Referred Address [address] [place] [address],[place], [place],[id number], Referred Provider Specialty OB - Gynecol ogy General Notes Carmen Zavala [facility] 10/26 01:41:41 PM >ref/demo/progress note /labs faxed to Lucas WILEY Suzanne [facility] 11/17/2024 02:22:41 PM > Called Burak WILEY [phone] spoke to Ana she stated pt has appt with Dr Westbrook for 01/17/2025 at 8:45am Referral Priority Routine Referral Appointment Date 01/17/2025 Medications Medication SIG (Take, Route, Frequency, Duration) Notes Start Date End Date Status Calcium 600 MG 1 tablet with meals Orally Twice a day Active Fish Oil 1000 MG 1 capsule Orally Onc e a day Active Probiotic 250 MG as directed Orally Active Garcinia Cambogia-Chromium 500-200 MG-MCG as directed Orally Active Vitamin A 2400 MCG (8000 UT) 1 capsule w ith food or milk Orally Once a day Active traZODone HCl 100 MG TAKE 1 TABLET BY MO UTH EVERY DAY AT BEDTIME FOR 30 DAYS Active ZyrTEC Allergy 10 MG 1 tablet [...] Rice 600 MG as directed Orally Active Magnesium 300 MG 1 capsule with a neno l Orally Once a day Active Vitamin E 100 UNIT as directed Orally Active Omeprazole 20 MG 1 capsule 1/2 to 1 h our before morning meal Orally Once a day 10/12/2024 Active Antioxidant - as directed Orally Active Vitamin C 500 MG as directed Orally Active Immunizations Vaccine Route Administration Date Status [...] nonsmoker Additional Findings: Tobacco Non-User Aggressive non-smoker Alcohol Screen Question Answer Notes Did you have a drink containing alcohol in the p ast year? No Points 0 Interpretation Negative Problems Problem Type SNOMED Code ICD Code Onset Dates Problem Status W/U Status Risk Notes Problem 98785210 Postmenopausal (Z78.0) Active confirmed She is under th e care of her bike shop manager. She has had no vaginal bleeding. She denies having any hot flashes or sweats. Problem 482074917 Overweight (E66.3) Active confirmed She has gained 4 pounds and remains overweight. We discussed diet and nutrition and made a plan to lose weight at a rate of one half of a pound per week. Problem 446243233 Seizure disorder (G40.909) Active confirmed No further seizures have occurred in a prolonged period of time. Problem Hypothyroidism (91082725) Hypothyroidism, unspecified (E03.9) Active confirmed Thyroid functio n tests have been requested. No change in her regimen was made today. She has been compliant with her replacement therapy. Problem Hyperlipidemia (50456653) Hyperlipidemia, unspecified (E78.5) Active confirmed The current lip id profile shows her cholesterol values to be 242 but the triglycerides are slightly elevated. I recommended a healthy, low animal fat diet with regular exercise and aggressive weight loss. No change in her medications was necessary.She does not wish to take Problem 751805246 Thyroid nodule (E04.1) Active confirmed Endocrinology h as referred her to head and neck surgery for surgical consultation. A needle biopsy of this area was negative.A hemithyroidectomy is planned for February 2025. Problem 880626683 Cervical disc disorder with radiculopathy (M50.10) Active confirmed The pain in her neck is almost gone. Her range of motion is normal. She has no numbness or tingling in her extremities. Problem 024592621 Allergic rhinitis, seasonal (J30.2) Active confirmed She has begun t o notice peripheral allergies. She is going to use loratadine as needed and has a nasal spray, fluticasone. Problem 454412450 Postmenopausal osteoporosis (M81.0) Active confirmed She was continu ed on current therapy without change. Vital Signs Heart Rate 82 /min 10/12/2024 Temperature 97.2 degrees Fahrenheit 10/12/2024 Oximetry 94, 94.0 % 05/06/2024 Blood pressure diastolic 79 mm Hg 10/12/2024 Height 61 in 10/12/2024 Blood pressure systolic 136 mm Hg 10/12/2024 Weight 149 lbs 10/12/2024 BMI 28.15 kg/m2 10/12/2024 Encounters Encounter Location Date Provider Diagnosis Ej Thomas III, MD [address] [place] [address] [place] [phone] 03/14/2024 Ej Thomas Hyperlipidemia, unspecified E78.5 ; Overweight E66.3 ; Cervical disc disorder with radiculopathy M50.10 ; Seizure disorder G40.909 and Skin lesion L98.9 Ej Thomas III, MD [address] [place] [address] [place] [address] 05/06/2024 Ej Thomas Hyperlipidemia, unspecified E78.5 ; Hypothyroidism, unspecified E03.9 ; Vocal cord paralysis J38.00 ; Cervical disc disorder with radiculopathy M50.10 ; Seizure disorder G40.909 ; Overweight E66.3 and Allergic rhinitis, seasonal J30.2 Ej Thomas III, MD [address] [place] [address] [place] [address] 07/18/2024 Ej Thomas Exposure to Streptococcal pharyngitis Z20.818 ; Allergic rhinitis, seasonal J30.2 ; Thyroid nodule E04.1 ; Hypothyroidism, unspecified E03.9 ; Overweight E66.3 ; Cervical disc disorder with radiculopathy M50.10 and Seizure disorder G40.909 Ej Thomas III, MD [address] [place] [address] [place] [address] 10/12/2024 Ej Thomas Overweight E66.3 ; Thyroid nodule E04.1 ; Urinary tract infection, site not specified N39.0 ; 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 ; Postmenopausal Z78.0 ; Allergic rhinitis, seasonal J30.2 ; Seizure disorder G40.909 ; Cervical disc disorder with radiculopathy M50.10 ; Hypothyroidism, unspecified E03.9 and Hyperlipidemia, unspecified E78.5 Ej Thomas III, MD [address] [place] [address] [place] [address] 05/27/2024 Ej Thomas III, MD [address] [place] [address] [place] [address] 06/02/2024 Ej Thomas Thyroid nodule E04.1 Ej Thomas III, MD [address] [place] [address] [place] [address] 06/08/2024 Ej Thomas III, MD [address] [place] [address] [place] [address] 06/15/2024 Ej Thomas III, MD [address] [place] [address] [place] [address] 06/22/2024 Ej Thomas III, MD [address] [place] [address] [place] [address] 07/18/2024 Ej Thomas III, MD [address] [place] [address] [place] [address] 10/10/2024 Ej Thomas Urinary tract infect ion, site not specified N39.0 Ej Thomas III, MD [address] [place] [address] [address] [place] [address] 10/10/2024 Ej Thomas III, MD [address] [place] [address] [address] [place], [place] [address] 12/06/2024 Ej Thomas III, MD [address] [place] [address] [address] [place] [address] 12/06/2024 Ej Thomas Assessments Encounter Date Diagnosis (ICD Code) Assessment Notes T reatment Notes Treatment Clinical Notes 03/14/2024 Overweight (ICD-10 [...] I gave her a prescription for levofloxacin. 10/12/2024 Overweight (ICD-10 - E66.3) She has [...] negative.A hemithyroidectomy is planned for February 2025. 06/02/2024 Thyroid nodule (ICD-10 - E04.1) 10/10/2024 Urinary tract infection, site not specified (ICD-10 - N39.0) 03/14/2024 Cervical disc disorder with radiculopathy (ICD-10 [...] needle biopsy of this area was negative. 10/12/2024 Urinary tract infection, site not specified (ICD-10 - N39.0) He has completely recovered from a recent urinary tract infection that was treated with cephalexin. 03/14/2024 Seizure disorder (ICD-10 - G40.909) No [...] been compliant with her replacement therapy. 10/12/2024 Postmenopausal osteoporosis (ICD-10 - M81.0) She was continued on current therapy without change. 03/14/2024 Skin lesion (ICD-10 - L98.9) Both of these skin lesions appear to be benign. They will be observed until she sees her patient care director again. 05/06/2024 Seizure disorder (ICD-10 - G40.909) No further seizures have occurred in a prolonged period of time. 07/18/2024 Overweight (ICD-10 - E66.3) Her body mass index is 27. She has lost 1 pound. We discussed diet and nutrition. We made a plan to lose weight at a rate of one half of a pound per week. 10/12/2024 Postmenopausal (ICD-10 - Z78.0) She is under the care of her bike shop manager. She has had no vaginal bleeding. She denies having any hot flashes or sweats. 05/06/2024 Overweight (ICD-10 - E66.3) Her body [...] numbness or tingling in her extremities. 10/12/2024 Allergic rhinitis, seasonal (ICD-10 - J30.2) She has begun to notice peripheral allergies. She is going to use loratadine as needed and has a nasal spray, fluticasone. 05/06/2024 Allergic rhinitis, seasonal (ICD-10 - J30.2) She has begun to notice peripheral allergies. She is going to use loratadine as needed and has a nasal spray, fluticasone. 07/18/2024 Seizure disorder (ICD-10 - G40.909) No further seizures have occurred in a prolonged period of time. 10/12/2024 Seizure disorder (ICD-10 - G40.909) No [...] not wish to take Plan Of Treatment Pending Test Test Name Order Date URINE DIP STICK 07/18/2020 PROFILE, FASTING (COMPREHENSIVE METABOLI C) 07/02/2022 PROFILE, FASTING (COMPREHENSIVE METABOLI C) 06/08/2023 PROFILE, FASTING (COMPREHENSIVE METABOLI C) 06/18/2020 PROFILE, FASTING (COMPREHENSIVE METABOLI C) 12/19/2020 PROFILE, FASTING (COMPREHENSIVE METABOLI C) 03/14/2024 PROFILE, FASTING (COMPREHENSIVE METABOLI C) 12/31/2021 PROFILE, FASTING (COMPREHENSIVE METABOLI C) 10/12/2024 PROFILE, FASTING (COMPREHENSIVE METABOLI C) 01/15/2023 PROFILE, FASTING (COMPREHENSIVE METABOLI C) 10/07/2023 PROFILE, FASTING (COMPREHENSIVE METABOLI C) 06/24/2021 PROFILE, FASTING (COMPREHENSIVE METABOLI C) 09/16/2019 PROFILE, RANDOM (COMPREHENSIVE METABOLIC ) 07/01/2019 LIPID PANEL 09/16/2019 LIPID PANEL 07/02/2022 LIPID PANEL 06/18/2020 LIPID PANEL 12/31/2021 LIPID PANEL 10/07/2023 LIPID PANEL 07/18/2020 GGT 09/16/2019 GGT 07/01/2019 CBC w DIFF 10/07/2023 CBC w DIFF 12/19/2020 CBC w DIFF 07/02/2022 CBC w DIFF 09/16/2019 CBC w DIFF 06/18/2020 CBC w DIFF 10/12/2024 CBC w DIFF 07/01/2019 CBC w DIFF 12/31/2021 CBC w DIFF 01/15/2023 CBC w DIFF 06/24/2021 SED RATE (ESR) 09/16/2019 URINE CULTURE 12/30/2022 CT NECK WITH CONTRAST 05/06/2024 XR CHEST 2 VIEW PA & LAT 05/06/2024 BONE DENSITY DEXA 10/12/2024 VITAMIN D 25-OH TOTAL 12/31/2021 CBC WITH AUTO DIFF 06/08/2023 CBC WITH AUTO DIFF 03/14/2024 Urinalysis 10/10/2024 Lipid Panel 06/24/2021 Lipid Panel 06/08/2023 Lipid Panel 12/19/2020 Lipid Panel 03/14/2024 Lipid Panel 10/12/2024 Lipid Panel 01/15/2023 Varicella IgG Antibody 03/14/2024 Urine Culture 01/19/2023 US thyroid 06/02/2024 Next Appt Details Provider Name:Ej Thomas , 01/11/2025 02:30:00 PM, [address] [place] [address] [address], [place] [address], Provider Name:Ej Thomas , 10/16/2025 02:00:00 PM, [address] [place] [address] [address], [place], [address], Insurance Providers Payer Name Payer Address Payer Phone Subscriber Number Group Number Insured Name Patient Relationship to Insured Coverage Start Date Coverage End Date MEDICARE N[place] [address] [place] [address] [id number] Danielle Bañuelos Self - patient is the insured [facility] [address] [place], [place] [id number] [phone] [id number] Danielle Bañuelos Self - patient is the insured Medical (General) History Medical History History ICD Code [id number] seasonal allergies seizure disorder age 14, no longer treat ed eczema cervical radiculopathy glaucoma Surgical History Surgery Date(Month/Year) No history root canal 09/2023 Hospitalization History Reason Date(Month/Year) No history
--- OUTSIDE RECORDS SUMMARY | 2024-12-20 09:50 | XMS_ITS | Clinical Summary ---
Author Organization [facility] Address [address] [place] [id number] Phone Care Team Providers Care Doll Wig Hackler Name Role Phone Ej Thomas MD Primary Care Provider [phone] Allergies Active Allergy Reactions Criticality Noted Date Comments Sulfa (Sulfonamide Antibiotics) Headaches 11/2016 Medications black cohosh root extract 80 mg Cap as directed Active CALCIUM CARB/MAGNESIUM CARB (CALCIUM & MAGNESIUM CARBONATES ORAL) Active b complex vitamins (VITAMINS B COMPLEX) tablet Acti ve ascorbic acid, vitamin C, (ASCORBIC ACID WITH JESSENIA HIPS) 500 MG tablet Active vitamin E 100 units capsule 400 units per pt Active ZINC ORAL 15 mg Active BILBERRY ORAL Take by mouth. Active Active Problems Problem Noted Date Diagnosed Date Menopausal vaginal dryness 02/05/2017 Assessment & Plan (02/05/2017 4:27 PM EST): Risks, benefits and alternatives of treatment reviewed with patient including local estrogen treatment. She has opted for a trial of Estrace. I have recommended using 1 gram twice weekly. Encounters Date Type Department Care Team Description 12/16/2024 Telephone [facility] [address] [place] [address] Janelle Gipson MD Appointment from Last 3 Months Family History Medical History Relation Comments Skin cancer Brother Hypertension Father Lung cancer Father Ovarian cancer Maternal Grandmother Coronary artery disease Mother Diabetes Mother Hypertension Mother Relation Status Comments Brother Father Maternal Grandmother Mother Social History Tobacco Use Types Packs/Day Years Used Date Smoking Tobacco: Never Smokeless Tobacco: Never Alcohol Use Standard Drinks/Week Comments Yes 0 (1 standard drink = 0.6 oz pure alcohol) Glass of wine a couple times a week Education Answer Date Recorded Are you interested in more education? Not on maribell e 07/25/2022 Are you concerned about learning? Not on file 07/25/2022 No 07/25/2022 No 07/25/2022 Digital Access Answer Date Recorded No 08/23/2022 No 08/23/2022 Reliable internet access at home? Not on file 08/23/2022 Device with a working camera? Not on file Comments No Sex and Gender Information Value Date Recorded Sex Assigned at Not on file Legal Sex Female 9:49 PM EDT Gender Identity Not on file Sexual Orientation Not on file Occupation Industry Job Start Date Job End Date Working Not on file Not on file Not on file Last Filed Vital Signs Vital Sign Reading Time Taken Comments Blood Pressure 124/74 01/26/2018 2:23 PM EDT Pulse - - Temperature - - Respiratory Rate - - Oxygen Saturation - - Inhaled Oxygen Concentration - - Weight 62.3 kg (137 lb 6.4 oz) 02/05/2017 4:04 P M EST Height 151.1 cm (4' 11.5 ) 02/05/2017 4:04 PM ES T Body Mass Index 27.29 02/05/2017 4:04 PM EST Plan of Treatment Upcoming Encounters Date Type Department Care Team (Late st Contact Info) Description 12/28/2024 1:50 PM EDT Office Visit [facility] [address] [place] [address] [place] [address] Feng Mar MD [address] [place] [address], [address] [place] [address] Health Maintenance Due Date Last Done Comments LIPID PANEL 1959 DEPRESSION SCREENING 1971 HEPATITIS C SCREENING 07/26/1977 HIV ONE-TIME SCREENING (18-6 5 YEARS) 07/26/1977 SMOKING STATUS SCREENING (On ce After 26 Yrs) 07/26/1985 MAMMOGRAM 1999 COLOGUARD 07/26/2004 COLONOSCOPY 07/26/2004 COLORECTAL CANCER SCREENING 07/26/2004 FIT TEST 07/26/2004 FOBT 07/26/2004 SIGMOIDOSCOPY 07/26/2004 VIRTUAL COLONOSCOPY 07/26/2004 PNEUMOCOCCAL VACCINES (50+ years) (1 of 1 - PCV) 07/26/2009 ZOSTER VACCINES (1 of 2) 07/26/2009 OSTEOPOROSIS SCREENING INITI AL (ONE-TIME) 07/26/2024 INFLUENZA VACCINE (#1) 2024 COVID-19 VACCINE (3 - 2024-2 6 season) 2024 05/10/2020, 04/12/2020 Adult Td,Tdap Booster 12/16/2025 12/17/2015 RSV VACCINE (1 - 1-dose 75+ series) 07/26/2034 HEPATITIS A VACCINES Aged Out No long er eligible based on patient's age to complete this topic HIB VACCINES Aged Out No longer eligi ble based on patient's age to complete this topic MENINGOCOCCAL VACCINES (ACWY) Aged Out No longer eligible based on patient's age to complete this topic MENINGOCOCCAL VACCINES (B) Aged Out N o longer eligible based on patient's age to complete this topic Medical Devices Not on file Insurance [place] [id number] MEDICARE PART A & B MEDICARE PART A & B MEDICARE PART A & B MEDICARE PART A & B MEDICARE PART A & B Care Teams Doll Wig Hackler Relationship Specialty Start Date End Date Ej Thomas MD [address] [place] [id number] PCP - General 01/15/17 Additional Source Comments The information contained in this document represents components of the legal health record. It is not the complete legal health record.[facility]
--- OUTSIDE RECORDS SUMMARY | 2024-12-20 09:50 | XMS_ITS ---
Author Name [facility] Organization Unknown Care Team Organization Name Specialty Phone Email Start Date End Da te [facility] NULL Primary Care 10/02/2022 11/16/2023 [facility] NULL Primary Care 02/04/2022 11/16/2023
--- OUTSIDE RECORDS SUMMARY | 2024-12-20 09:50 | XMS_ITS | Encounter Summary ---
Author Organization [facility] Address [address] [facility] [address] [place] [address] Phone Care Team Providers Care Parking Technician Name Role Phone Ej Thomas MD Primary Care Provider [phone] Reason for Visit * Reason Onset Date Comments Appointment 12/16/2024 Encounter Details Date Type Department Care Team (Late st Contact Info) Description 12/16/2024 Telephone [facility] [address] [place] [address] Janelle Gipson MD [address] [place], [place] [phone] Appointment Social History Tobacco Use Types Packs/Day Years [...] file Not on file Not on file documented as of this encounter Progress Notes * Ifeanyi Reyna - 12/19/2024 4:08 PM EDT Scheduled * Georgina Healy - 12/16/2024 4:39 PM EDT Pt LVM to schedule annual; please call to schedule. Thank you! documented in this encounter Plan of Treatment Upcoming Encounters Date Type Department Care Team (Late st Contact Info) Description 12/28/2024 1:50 PM EDT Office Visit [facility] [address] [place] [address] Feng Mar MD [address] [facility], [address] [place] [address] [email or web address] documented as of this encounter Visit Diagnoses Not on filedocumented in this encounter Care Teams Parking Technician Relationship Specialty Start Date End Date Ej Thomas MD [address] [place] [address] PCP - General 01/15/17 documented as of this encounter Additional Source Comments The information contained in this document represents components of the legal health record. It is not the complete legal health record.[facility]
== END 2024-12-20 08:47 | disposition home or self-care (01) ==
LOC: HO.MAMMO 08:46
PROVIDERS: PCP Internal Medicine Medical Oncology; Visit Provider Internal Medicine Medical Oncology
DX: M81.0 Age-related osteoporosis without current pathological fracture (principal)
CPT/HCPCS: 77080

== ENCOUNTER 2025-01-10 09:38 | Outpatient (REF) | payer MEDICARE, SELFPAY ==
--- OUTSIDE RECORDS SUMMARY | 2024-10-10 06:26 | XMS_ITS ---
Author Organization Ej Thomas III, MD Address [address] [place] [place] [address] Care Team Providers Care Shoeshiner Name Role Phone Dr. Ej Thomas III Primary Care Provider [phone] Results Component Value Reference Range Notes Urine Culture Reviewed date:10/12/2024 02:45:58 PM Interpretation: Performing Lab:[facility], [address] [place] [phone] Notes/Report: O:ESCCOL Escherichia coli Urine Culture Quant Urine Culture > 100,000 cfu/mL Ampicillin <=2 Cefazolin (Urine) <=1 Cefepime <=0.12 Ceftriaxone <=0.25 Ciprofloxacin <=0.06 Gentamicin <=1 Nitrofurantoin <=16 Trimethoprim/Sulfamethoxazole <=20 REASON FOR VISIT ? UTI Social History Sex Assigned At : Social History Observation Description Sex Assigned At Female Encounters Encounter Location Date Provider Diagnosis Ej Thomas III, MD [address] [place] [address] [place] [address] 10/10/2024 Ej Thomas Urinary tract infection, site not specified N39.0 Assessments Encounter Date Diagnosis (ICD Code) Assessment Notes Treatment Notes Treatment Clinical Notes 10/10/2024 Urinary tract infection, site not specified (ICD-10 - N39.0) Plan Of Treatment Pending Test Test Name Order Date Urinalysis 10/10/2024 Next Appt Details Provider Name:Ej Thomas , 01/11/2025 02:30:00 PM, [address] [place] [address] [place], [address], Provider Name:Ej Thomas , 10/16/2025 02:00:00 PM, [address] [place] [address] [address], [place], [address], Progress Notes * Danielle BAÑUELOSDOB:1960 (64 yo F)Acc No.[id number]:10/10/2024 Patient: Danielle GONZALEZ :1960 A ge:64 Y S ex:Female [facility] [place] [address] Subjective: * Chief Complaints: * ? UTI * Medical History: * Surgical History: * Hospitalization/Major Diagno stic Procedure: * Medications: Objective: * Vitals: * Physical Examination: Assessment: * Assessment: 1. U rinary tract infection, site not specified - N39.0 Plan: * Treatment: * Procedure Codes: * true * Date: Generated for Yaritza zayas/Puneet/eTalfredosmitting on: 10:46 AM EDT
--- OUTSIDE RECORDS SUMMARY | 2024-10-10 07:00 | XMS_ITS ---
Author Organization Ej Thomas III, MD Address [address] [place] [address] Care Team Providers Care Director Of Academic Support Name Role Phone Dr. Ej Thomas III [...] Date Provider Diagnosis Ej Thomas III, MD [address] [place] [address] [place] [address] 10/10/2024 Ej Thomas Plan Of Treatment Medication Medication Name Sig Start Date Stop Date Notes Cephalexin 500 MG 1 capsule Orally leandra ry 6 hrs for 7 days 10/10/2024 10/17/2024 has used in the past Next Appt Details Provider Name:Ej Thomas , 01/11/2025 02:30:00 PM, [address] [place] [address] [place], [address], Provider Name:Ej Thomas , 10/16/2025 02:00:00 PM, [address] [place] [address] [place], [address], Progress Notes * Danielle BAÑUELOSDOB:1960 (64 yo F)Acc No.[id number]:10/10/2024 Patient: Danielle GONZALEZ :1960 A ge:64 Y S ex:Female [facility] [place] [address] * Refills Start Cephalexin Capsule, 500 MG, Orally, 28 Capsule, 1 capsule, every 6 hrs, 7 days, Refills=0 * true * Date: Generated for Yaritza zayas/Puneet/Alizeitting on: 10:45 AM EDT
--- OUTSIDE RECORDS SUMMARY | 2024-10-12 10:00 | XMS_ITS ---
Author Organization Ej Thomas III, MD Address [address] [place] [address] Care Team Providers Care Canine Service Instructor Trainer Name Role Phone Dr. Ej Thomas III Primary Care Provider Allergies Allergen (clinical drug ingredient) Drug/Non Drug Allergy documented on EMR Reaction Allergy Type Onset Date Status amoxicillin Amoxicillin diarrhea Drug Allergy Act emanuel Sulfur nausea, headaches, stomach pain Drug Allergy Active Reason For Referral Reason evaluate and treatme nt yearly pelvic and pap smear Diagnosis 1 Annual physical exam (Z00.00) Referral Organization Ej Thomas III, MD Referring Provider First Name Ej Referring Provider Last Name William Referring Provider Speciality Internal M edicine Referred Organization [facility] Referred Provider [facility], [facility] Referred Address [address] [place] [phone], Referred Provider Specialty OB - Gynecol ogy General Carmen Martinez [facility] 10/26 01:41:41 PM >ref/demo/progress note /labs faxed to Lucas WILEY Suzanne CMA 11/17/2024 02:22:41 PM > Called Eugenio WILEY [phone] spoke to Ana she stated pt has appt with Dr Westbrook for 01/17/2025 at 8:45am Referral Priority Routine Referral Appointment Date 01/17/2025 REASON FOR VISIT annual exam Medications Medication SIG (Take, Route, Frequency, Duration) Notes Start Date End Date Status Omeprazole 20 MG 1 capsule 1/2 to 1 h our before morning meal Orally Once a day 10/12/2024 Active traZODone HCl 100 MG TAKE 1 TABLET BY MO UTH EVERY DAY AT BEDTIME FOR 30 DAYS Active Calcium 600 MG 1 tablet with meals Orally Twice a day Active Vitamin E 100 UNIT as directed Orally Active Vitamin C 500 MG as directed Orally Active Garcinia Cambogia-Chromium 500-200 MG-MCG as directed Orally Active Magnesium 300 MG 1 capsule with a neno l Orally Once a day Active ZyrTEC Allergy 10 MG 1 tablet Orally Onc e a day 03/04/2018 Active Ibuprofen 200 MG 2 tablets with food or milk as needed Orally every 6 hrs 03/04/2018 Active Acetaminophen 325 MG 2 tablet as needed Orally every 6 hrs 03/04/2018 Active Estrogens, Conjugated 0.625 MG/GM 1 gram Vaginal in Urethra Twice a week Active Red Yeast Rice 600 MG as directed Orally Active Fish Oil 1000 MG 1 capsule Orally Onc e a day Active Antioxidant - as directed Orally Active Probiotic 250 MG as directed Orally Active Vitamin A 2400 MCG (8000 UT) 1 capsule w ith food or milk Orally Once a day Active Social History [...] Problem Status W/U Status Risk Notes Problem [id number] Postmenopausal (Z78.0) Active confirmed She is under the care of her gynecologi st. She has had no vaginal bleeding. She denies having any hot flashes or sweats. Vital Signs Temperature 97.2 degrees Fahrenheit 10/13/19 25 Blood pressure systolic 136 mm Hg 10/13/19 25 Blood pressure diastolic 79 mm Hg 025 Heart Rate 82 /min 10/12/2024 Height 61 in 10/12/2024 Weight 149 lbs 10/12/2024 BMI 28.15 kg/m2 10/12/2024 Encounters Encounter Location Date Provider Diagnosis Ej Thomas III, MD [address] [place] [address] [place] [id number] 10/12/2024 Ej Thomas Overweight E66.3 ; Thyroid nodule E04.1 ; Urinary tract infection, site not specified N39.0 ; 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 ; Postmenopausal Z78.0 ; Allergic rhinitis, seasonal J30.2 ; Seizure disorder G40.909 ; Cervical disc disorder with radiculopathy M50.10 ; Hypothyroidism, unspecified E03.9 and Hyperlipidemia, unspecified E78.5 Assessments Encounter Date Diagnosis (ICD Code) Assessment Notes T reatment Notes Treatment Clinical Notes 10/12/2024 Overweight (ICD-10 - E66.3) She has gained 4 pounds and remains overweight. We discussed diet and nutrition and made a plan to lose weight at a rate of one half of a pound per week. 10/12/2024 Thyroid nodule (ICD-10 - E04.1) Endocrinology has referred her to head and neck surgery for surgical consultation. A needle biopsy of this area was negative.A hemithyroidectomy is planned for February 2025. 10/12/2024 Urinary tract infection, site not specified (ICD-10 - N39.0) He has completely recovered from a recent urinary tract infection that was treated with cephalexin. 10/12/2024 Postmenopausal osteoporosis (ICD-10 - M81.0) She was continued on current therapy without change. 10/12/2024 Postmenopausal (ICD-10 - Z78.0) She is under the care of her trouble tracer. She has had no vaginal bleeding. She denies having any hot flashes or sweats. 10/12/2024 Allergic rhinitis, seasonal (ICD-10 - J30.2) She has begun to notice peripheral allergies. She is going to use loratadine as needed and has a nasal spray, fluticasone. 10/12/2024 Seizure disorder (ICD-10 - G40.909) No further seizures have occurred in a prolonged period of time. 10/12/2024 Cervical disc disorder with radiculopathy (ICD-10 - M50.10) The pain in her neck is almost gone. Her range of motion is normal. She has no numbness or tingling in her extremities. 10/12/2024 Hypothyroidism, unspecified (ICD-10 - E03.9) Thyroid function tests have been requested. No change in her regimen was made today. She has been compliant with her replacement therapy. 10/12/2024 Hyperlipidemia, unspecified (ICD-10 - E78.5) The current lipid profile shows her cholesterol values to be 242 but the triglycerides are slightly elevated. I recommended a healthy, low animal fat diet with regular exercise and aggressive weight loss. No change in her medications was necessary.She does not wish to take Plan Of Treatment Medication Medication Name Sig Start Date Stop Date Notes Omeprazole 20 MG 1 capsule 1/2 to 1 h our before morning meal Orally Once a day 10/12/2024 traZODone HCl 100 MG TAKE 1 TABLET BY [facility] EVERY DAY AT BEDTIME FOR 30 DAYS Calcium 600 MG 1 tablet with meals Orally Twice a day Vitamin E 100 UNIT as directed Orally Vitamin C 500 MG as directed Orally Garcinia Cambogia-Chromium 500-200 MG-MCG as directed Orally Magnesium 300 MG 1 capsule with a neno l Orally Once a day ZyrTEC Allergy 10 MG 1 tablet Orally Once a day 03/04/2018 Ibuprofen 200 MG 2 tablets with food or milk as needed Orally every 6 hrs 03/04/2018 Acetaminophen 325 MG 2 tablet as needed Orally every 6 hrs 03/04/2018 Estrogens, Conjugated 0.625 MG/GM 1 gram Vaginal in Urethra Twice a week Red Yeast Rice 600 MG as directed Orally Fish Oil 1000 MG 1 capsule Orally Onc e a day Antioxidant - as directed Orally Probiotic 250 MG as directed Orally Vitamin A 2400 MCG (8000 UT) 1 capsule w ith food or milk Orally Once a day Pending Test Test Name Order Date PROFILE, FASTING (COMPREHENSIVE METABOLI C) 10/12/2024 CBC w DIFF 10/12/2024 BONE DENSITY DEXA 10/12/2024 Lipid Panel 10/12/2024 Referrals Referral Date Details 10/12/2024 10/12/2024, evaluate and treatment yearly pelvic and pap smear, [facility], [address] [place] [address], [place], [place], [phone], Next Appt Details Follow Up: 3 Months, Reason: ov review labs Provider Name:Ej Thomas , 01/11/2025 02:30:00 PM, [address] [place] [address] [place], [phone], Provider Name:Ej Thomas , 10/16/2025 02:00:00 PM, [address] [place] [address] [place], [place], [id number], Progress Notes * Juan CHAPMAN:1960 (64 yo F)Acc No.[id number]:10/12/2024 Progress Notes Patient: Danielle GONZALEZ Provider: Buster Thomas MD :1960 A ge:64 Y S ex:Female Date:10/12/2024 [id number] Subjective: * Chief Complaints: * A nnual exam * HPI: D epression Screening: She returns at the age of 64 for her annual physical examination. A recent urinary tract infection has been successfully treated with cephalexin. She is on a new Armenian diet to lose weight. She has seen an ENT surgeon about her thyroid and a hemithyroidectomy is planned for February 2025. 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 Otherwise she seems healthy and well. She has no new complaints. Her blood work was reviewed with her. PHQ-9 L ittle interest or pleasure in doing things?Not at all F eeling down, depressed, or hopeless N ot at all T rouble falling or staying asleep, or sleeping too much S everal days F eeling tired or having little energy N ot at all P oor appetite or overeating N ot at all F eeling bad about yourself or that you are a failure, or have let yourself or your family down N ot at all T rouble concentrating on things, such as reading the newspaper or watching television N ot at all M oving or speaking so slowly that other people could have noticed; or the opposite, being so fidgety or restless that you have been moving around a lot more than usual N ot at all T houghts that you would be better off or of hurting yourself in some way N ot at all T otal Score 1 I nterpretation M inimal Depression C OVID-19 Screening: Questions H ave you had any new onset fever, chills, cough, congestion, sore throat, shortness of breath, muscle aches? N o S AUTUMN Questions: SDOH Questions I n the past year have you been worried about losing your housing? N o I n the past year have you or any family members you live with been unable to get any of the following when it was really needed? Check all that apply: N one * ROS: G eneral/Constitutional: pain o nly normal aches and pains. C hills d enies.?Fatigue a dmits. F ever d enies. E [...] have been noted. G enitourinary: Frequent urination a t night. M usculoskeletal: Muscle aches d enies. P ainful joints d enies. S ciatica d enies. W eakness d enies. S kin: Itching d enies. R andrey d enies. S kin lesion(s)?denies. N eurologic: Difficulty speaking D ifficulty singing. D izziness?denies. H eadache d enies. L ow back [...] ggressive non-smoker S he was born in [place], [place]. She has one daughter. She is . * Medications: T akingOmeprazole 20 MG Capsule Delayed Release 1 capsule 1/2 to 1 hour before morning meal Orally Once a day Fish Oil 1000 MG Capsule 1 capsule [...] tablet as needed Orally every 6 hrs Magnesium 300 MG Capsule 1 capsule with a meal Orally Once a day Calcium 600 MG Tablet 1 tablet with meals Orally Twice a day Vitamin E 100 UNIT Capsule as directed Orally Vitamin C 500 MG Capsule as directed Orally traZODone HCl 100 MG Tablet TAKE 1 TABLET BY MOUTH EVERY DAY AT BEDTIME FOR 30 DAYS Taking Omeprazole 20 MG Capsule Delayed Release 1 capsule 1/2 to 1 hour before morning meal Orally Once a day Taking Fish Oil 1000 MG Capsule 1 [...] as needed Orally every 6 hrs Taking Magnesium 300 MG Capsule 1 capsule with a meal Orally Once a day Taking Calcium 600 MG Tablet 1 tablet with meals Orally Twice a day Taking Vitamin E 100 UNIT Capsule as directed Orally Taking Vitamin C 500 MG Capsule as directed Orally Taking traZODone HCl 100 MG Tablet TAKE 1 TABLET BY MOUTH EVERY DAY AT BEDTIME FOR 30 DAYS DiscontinuedEstrogens, Conjugated 0.625 MG/GM Cream 1 gram Vaginal in Urethra Twice a week Red Yeast Rice 600 MG Capsule as directed Orally Garcinia Cambogia-Chromium 500-200 MG-MCG Tablet as directed Orally Medication List reviewed and reconciled with the patientDiscontinued Estrogens, Conjugated 0.625 MG/GM Cream 1 gram Vaginal in Urethra Twice a week Discontinued Red Yeast Rice 600 MG Capsule as directed Orally Discontinued Garcinia Cambogia-Chromium 500-200 MG-MCG Tablet as directed Orally Medication List reviewed and reconciled with the patient * Allergies: S ulfur: nausea, headaches, stomach pain - Side EffectsAmoxicillin: diarrheano[Allergies Verified] Objective: * Vitals: H t: 61, Wt:149, BMI:28.15, BP:136/79, HR:82, Temp:97.2, Wt-k.59. * P ast Orders: L ab:Comprehensive [place]. Panel Fast (Order Date - 10/10/2024) (Collection Date & Time - 10/10/2024 01:01 PM) Value Reference Range Sodium 137 135-145 - mmol/L Bilirubin Total 0.5 0.0-1.0 - mg/dL Aspartate Amino Transferase 29 5-31 - U/L Alanine Aminotransferase 32 H 0-31 - U/L Total Protein 7.2 6.5-8.0 - g/dL Albumin Level 4.6 3.5-5.0 - g/dL Alkaline Phosphatase 80 39-117 - U/L Potassium 4.4 3.3-5.1 - mmol/L Chloride 106 96-108 - mmol/L Carbon Dioxide 24 22-29 - mmol/L Anion Gap 11 L 12-20 - Blood Urea Nitrogen 14 9-16 - mg/dL Creatinine 0.66 0.5-1.4 - mg/dL Estimated Glomerular Filt Rate > 60 - Glucose Fasting 114 H 60-99 - mg/dL Calcium 9.3 8.4-10.2 - mg/dL L ab:Lipid Panel (Order Date - 10/10/2024) (Collection Date & Time - 10/10/2024 01:01 PM) Value Reference Range Triglycerides 161 H <150 - mg/dL Cholesterol 242 H <200 - mg/dL LDL Cholesterol Calculated 156 H <100 - mg/dL HDL Cholesterol 54 >40 - mg/dL L ab:Urine Culture (Order Date - 10/10/2024) (Collection Date & Time - 10/10/2024 12:56 PM) Value Reference Range Urine Culture > 100,000 cfu/mL - Ampicillin <=2 S - Ceftriaxone <=0.25 S - Gentamicin <=1 S - Nitrofurantoin <=16 S - Trimethoprim/Sulfamethoxazole <=20 S - O:ESCCOL Escherichia coli - Ciprofloxacin <=0.06 S - Cefepime <=0.12 S - Cefazolin (Urine) <=1 S - L ab:Complete Blood Count Auto Diff (Order Date - 10/10/2024) (Collection Date & Time - 10/10/2024 01:01 PM) Value Reference Range White Blood Count 10.6 4.8-10.8 - X10*3/uL Red Blood Count 4.84 4.20-5.50 - X10*6/uL Hemoglobin 14.7 12.0-16.0 - g/dl Hematocrit 42.8 37.0-47.0 - % Mean Corpuscular Volume 88.4 80.0-98.0 - fL Mean Corpuscular Hemoglobin 30.4 27.0-33.0 - pg Mean Corpuscular HGB Conc 34.3 31.0-35.0 - g/ dl Red Cell Distribution Width 12.6 11.0-16.0 - % Platelet Count 244 160-400 - X10*3/uL Mean Platelet Volume 10.1 9.4-12.3 - fL Neutrophils Percent Auto 75.4 H 45-73 - % Imm Gran Pct Auto 0.4 0.0-0.4 - % Lymphocytes Percent Auto 15.6 L 20-40 - % Monocytes Percent Auto 8.1 2-11 - % Eosinophils Percent Auto 0.2 0-4 - % Basophils Percent Auto 0.3 0-2 - % NRBC Pct Auto 0.0 0.0-0.2 - /100WBC Neutrophils Absolute Auto 8.0 2.0-8.3 - x10* 3/uL Imm Gran Abs Auto 0.04 H 0.00-0.03 - X10*3/uL Lymphocytes Absolute Auto 1.7 1.2-4.9 - X10* 3/uL Monocytes Absolute Auto 0.9 0.1-1.2 - X10*3/ uL Eosinophils Absolute Auto 0.0 0.0-0.4 - X10* 3/uL Basophils Absolute Auto 0.0 0.0-0.2 - X10*3/ uL NRBC Abs Auto 0.000 0.0-0.012 - X10*3/uL L ab:Urinalysis and Microscopic (Order Date - 10/10/2024) (Collection Date & Time - 10/10/2024 12:56 PM) Value Reference Range Color Urine Yellow - RBC Urine 0-2 0-2 - /HPF Appearance Urine Clear - PH 6.5 5.0-9.0 - Glucose Urine UA Negative Negative - mg/dL Urine Blood Small (1+) A Negative - Specific [place] - Urine <= 1.005 1.005-1.025 - Urine Protein Negative Neg-Trace - mg/dL Urine Ketones Negative Negative - mg/dL Nitrite Urine Negative Negative - Leukocyte Esterase Urine Large (3+) A Negative - WBC Urine >50 A 0-5 - /HPF Squamous Epithelial Cell Urine 0-2 0-2 - /HP F Bacteria Urine 4+ None Seen - Hyaline Casts Urine 0-2 0-2 - /LPF WBC Clumps Urine Present - * Examination: G eneral Examination: GENERAL APPEARANCE: p autumn, well nourished, well developed, in no acute distress, calm and relaxed, overweight, woman. HEAD: a traumatic, normocephalic. EYES: e mahesh, perrla, anicteric, conjugate. EARS: n ormal. NOSE: s eptum intact. ORAL CAVITY: n ormal, unremarkable, voice normal. NECK/THYROID: n o jugular venous distention, no carotid bruit, thyroid enlarged. LYMPH NODES: n o enlarged lymph nodes,spleen normal. SKIN: n o suspicious lesions, anicteric. HEART: n o clicks, gallops, murmurs, or rubs, regular rhythm, S1, S2 normal, no s3, or vascular bruits. LUNGS: c lear to auscultation . BREASTS: no masses palpable bilaterally. ABDOMEN: b owel sounds normal, no ascites, no organomegaly, no mass, overweight. RECTAL EXAM: n ot examined. MUSCULOSKELETAL: e xtremities unremarkable, no clubbing, cyanosis or edema. PERIPHERAL PULSES: n ormal. NEUROLOGIC: a lert and oriented, cranial nerves 2-12 grossly intact, deep tendon reflexes 2+ symmetrical, motor strength normal upper and lower extremities, sensory exam intact. PSYCH: a lert, oriented. Assessment: * Assessment: 1. T hyroid nodule - E04.1 (Primary) N otes :Endocrinology has referred her to head and neck surgery for surgical consultation. A needle biopsy of this area was negative.A hemithyroidectomy is planned for February 2025. 2 . O verweight - E66.3 N otes :She has gained 4 pounds and remains overweight. We discussed diet and nutrition and made a plan to lose weight at a rate of one half of a pound per week. 3 . U rinary tract infection, site not specified - N39.0 N otes :He has completely recovered from a recent urinary tract infection that was treated with cephalexin. 4 . P ostmenopausal osteoporosis - M81.0 N otes :She was continued on current therapy without change. 5 . P ostmenopausal - Z78.0 N otes :She is under the care of her trouble tracer. She has had no vaginal bleeding. She denies having any hot flashes or sweats. 6 . A llergic rhinitis, seasonal - J30.2 N otes :She has begun to notice peripheral allergies. She is going to use loratadine as needed and has a nasal spray, fluticasone. 7 . S eizure disorder - G40.909 N otes :No further seizures have occurred in a prolonged period of time. 8 . C ervical disc disorder with radiculopathy - M50.10 N otes :The pain in her neck is almost gone. Her range of motion is normal. She has no numbness or tingling in her extremities. 9 . H ypothyroidism, unspecified - E03.9 N otes :Thyroid function tests have been requested. No change in her regimen was made today. She has been compliant with her replacement therapy. 1 0. H yperlipidemia, unspecified - E78.5 N otes :The current lipid profile shows her cholesterol values to be 242 but the triglycerides are slightly elevated. I recommended a healthy, low animal fat diet with regular exercise and aggressive weight loss. No change in her medications was necessary.She does not wish to take Plan: * Treatment: 2. O verweight L AB: PROFILE, FASTING (COMPREHENSIVE METABOLIC) L AB: CBC w DIFF L AB: Lipid Panel 3. U rinary tract infection, site not specified L AB: PROFILE, FASTING (COMPREHENSIVE METABOLIC) L AB: CBC w DIFF L AB: Lipid Panel 4. P ostmenopausal osteoporosis I maging: BONE DENSITY DEXA 5. P ostmenopausal I maging: BONE DENSITY DEXA 6. O thers Continue Fish Oil Capsule, 1000 MG, 1 capsule, Orally, Once a day; C ontinue Antioxidant Capsule, -, as directed, Orally; C ontinue Probiotic Capsule, 250 MG, as directed, Orally; C ontinue Vitamin A Capsule, 2400 MCG (8000 UT), 1 capsule with food or milk, Orally, Once a day; C ontinue ZyrTEC Allergy Tablet, 10 MG, 1 tablet, Orally, Once a day; C ontinue Ibuprofen Capsule, 200 MG, 2 tablets with food or milk as needed, Orally, every 6 hrs; C ontinue Acetaminophen Tablet, 325 MG, 2 tablet as needed, Orally, every 6 hrs; C ontinue Estrogens, Conjugated Cream, 0.625 MG/GM, 1 gram, Vaginal in Urethra, Twice a week; C ontinue Red Yeast Rice Capsule, 600 MG, as directed, Orally; C ontinue Magnesium Capsule, 300 MG, 1 capsule with a meal, Orally, Once a day; Continue Calcium Tablet, 600 MG, 1 tablet with meals, Orally, Twice a day; C ontinue Vitamin E Capsule, 100 UNIT, as directed, Orally; C ontinue Vitamin C Capsule, 500 MG, as directed, Orally; C ontinue Garcinia Cambogia-Chromium Tablet, 500-200 MG-MCG, as directed, Orally; C ontinue traZODone HCl Tablet, 100 MG, TAKE 1 TABLET BY MOUTH EVERY DAY AT BEDTIME FOR 30 DAYS. ? Referral To:[facility] Reason:evaluate and treatment yearly pelvic and pap smear * Procedure Codes: * Preventive Medicine: Counseling: C are goal follow-up plan: Counseling for abnormal BMI given Y es Above Normal BMI Follow-up D ietary management education, guidance, and counseling, Dietary needs education * Follow Up: 3 Months (Reason: ov review labs) * Images: * Sign off status: Completed true * Provider: Buster Thomas MD Date: 0 10/12/2024 Generated for Yaritza zayas/Puneet/Fransisco on: 10:46 AM EDT History and Physical Notes * HPI (History of Present Illness) Category Sub-Category Detail Notes Depression Screening PHQ-9 Little inte rest or pleasure in doing things: Not at all Feeling down, depressed, or hopeless: No t at all Trouble falling or staying asleep, or sl eeping too much: Several days Feeling tired or having little energy: N ot at all Poor appetite or overeating: Not at all Feeling bad about yourself o r that you are a failure, or have let yourself or your family down: Not at all Trouble concentrating on thi ngs, such as reading the newspaper or watching television: Not at all Moving or speaking so slowly that other people could have noticed; or the opposite, being so fidgety or restless that you have been moving around a lot more than usual: Not at all Thoughts that you would be b tyrel off or of hurting yourself in some way: Not at all Total Score: 1 Interpretation: Minimal Depression COVID-19 Screening Questions Have you had any new onset fever, chills, cough, congestion, sore throat, shortness of breath, muscle aches?: No SDOH Questions SDOH Questions In the past year have you been worried about losing your housing?: No In the past year have you or any family members you live with been unable to get any of the following when it was really needed? Check all that apply:: None Examination Category Sub-Category Detail Notes General Examination GENERAL APPEARANCE: pleasant , well nourished, well developed, in no acute distress, calm and relaxed, overweight, woman HEAD: atraumatic, normocep halic EYES: eomi, perrla, anicte mayra, conjugate EARS: normal NOSE: septum intact NECK/THYROID: no jugular venous di stention, no carotid bruit, thyroid enlarged HEART: no clicks, gallops, murmurs, or rubs, regular rhythm, S1, S2 normal, no s3, or vascular bruits LUNGS: clear to auscultatio n ABDOMEN: bowel sounds normal, no ascites, no organomegaly, no mass, overweight NEUROLOGIC: alert and oriented, cranial nerves 2-12 grossly intact, deep tendon reflexes 2+ symmetrical, motor strength normal upper and lower extremities, sensory exam intact SKIN: no suspicious lesion s, anicteric PERIPHERAL PULSES: normal BREASTS: no masses palpable b ilaterally MUSCULOSKELETAL: extremities unremark able, no clubbing, cyanosis or edema LYMPH NODES: no enlarged lymph no ilene,spleen normal RECTAL EXAM: not examined PSYCH: alert, oriented ORAL CAVITY: normal, unremarkable , voice normal Consultation Request Notes Referral Date Referring Provider Referred Provider Not es 10/12/2024 Ej Thomas [facility], [facility] evaluate and treatment yearly pelvic and pap smear
--- OUTSIDE RECORDS SUMMARY | 2024-12-06 10:58 | XMS_ITS ---
Author Organization Ej Thomas III, MD Address [address] [facility] [address] [place] [address] Care Team Providers Care Architect Manager Name Role Phone Dr. Ej Thomas III Primary Care Provider [phone] REASON FOR VISIT UTI Rx Request Social History Sex Assigned At : Social History Observation Description Sex Assigned At Female Encounters Encounter Location Date Provider Diagnosis Ej Thomas III, MD [address] [place] [address] [place] [address] 12/06/2024 Ej Thomas Plan Of Treatment Next Appt Details Provider Name:Ej Thomas , 01/11/2025 02:30:00 PM, [address] [place] [address] [place], [address], Provider Name:Ej Thomas , 10/16/2025 02:00:00 PM, [address] [place] [address] [place], [address], Progress Notes * DURGADanielle BROCKDOB:1960 (64 yo F)Acc No.[id number]:12/06/2024 Patient: Danielle GONZALEZ :1960 A ge:64 Y S ex:Female Address: [place] [address] * true * Date: Generated for Printi ng/Faxing/eTransmitting on: 1 10:46 AM EDT
--- OUTSIDE RECORDS SUMMARY | 2024-12-06 11:13 | XMS_ITS ---
Author Organization Ej Thomas III, MD Address [address] [facility] [place] [address] Care Team Providers Care Exhibit Display Representative Name Role Phone Dr. Ej Thomas III Primary Care Provider [phone] Medications Medication SIG (Take, Route, Frequency, Duration) Notes Start Date End Date Status Nitrofurantoin Monohyd Macro 100 MG 1 capsule with food Orally every 12 hrs for 7 days 12/06/2024 12/13/2024 Active Social History Sex Assigned At : Social History Observation Description Sex Assigned At Female Encounters Encounter Location Date Provider Diagnosis Ej Thomas III, MD [address] [place] [address] [place] [address] 12/06/2024 Ej Thomas Plan Of Treatment Medication Medication Name Sig Start Date Stop Date Notes Nitrofurantoin Monohyd Macro 100 MG 1 capsule with food Orally every 12 hrs for 7 days 12/06/2024 12/13/2024 Next Appt Details Provider Name:Ej Thomas , 01/11/2025 02:30:00 PM, [address] [place] [address] [place], [address], Provider Name:Ej Thomas , 10/16/2025 02:00:00 PM, [address] [place] [address] [place], [address], Progress Notes * Danielle BAÑUELOSDOB:1960 (64 yo F)Acc No.[id number]:12/06/2024 Patient: Danielle GONZALEZ :1960 A ge:64 Y S ex:Female Address: [place] [address] * Refills Start Nitrofurantoin Monohyd Macro Capsule, 100 MG, Orally, 14 Capsule, 1 capsule with food, every 12 hrs, 7 days, Refills=0 * true * Date: Generated for Yaritza zayas/Puneet/Alizeitting on: 10:46 AM EDT
[2025-01-10 09:50] LABS: MANUAL DIFF FLAG NO
[2025-01-10 10:32] LABS: Hematocrit 43.8 % (37.0-47.0); Hemoglobin 15.0 g/dl (12.0-16.0); Imm Gran Abs Auto 0.02 X10*3/uL (0.00-0.03); Imm Gran Pct Auto 0.4 % (0.0-0.4); Lymphocytes Absolute Auto 1.7 X10*3/uL (1.2-4.9); Mean Corpuscular HGB Conc 34.2 g/dl (31.0-35.0); Mean Corpuscular Hemoglobin 31.3 pg (27.0-33.0); Mean Corpuscular Volume 91.4 fL (80.0-98.0); NRBC Abs Auto 0.000 X10*3/uL (0.0-0.012); NRBC Pct Auto 0.0 /100WBC (0.0-0.2); Platelet Count 243 X10*3/uL (160-400); Red Blood Count 4.79 X10*6/uL (4.20-5.50); White Blood Count 5.5 X10*3/uL (4.8-10.8)
--- OUTSIDE RECORDS SUMMARY | 2025-01-10 10:45 | XMS_ITS | Clinical Summary ---
Author Organization [facility] [address] [place] [address] Address [address] [place] [address] Phone Care Team Providers Care Enamel Drier Name Role Phone Ale Thomas MD Primary Care Provider [phone] Allergies Active Allergy Reactions Criticality Noted Date [...] Active ZINC ORAL 15 mg Active omega 4-ppy-pqe-fish oil (Fish OiL) 1,000 (120-180) mg capsule 1 capsule (1,000 mg total) 1 (one) time each day at the same time. Active red yeast rice 600 mg capsule as directed Orally Active saccharomyces boulardii (FLORASTOR) 250 mg capsule as directed Orally Active Surgical History Surgery Date Site/Laterality Comments ABDOMINAL SURGERY PROCEDURE: TX UNLISTED PROCEDURE ABDOMEN PERITONEUM & OMENTUM; COMMENT: [...] Health Maintenance Due Date Last Done Comments Colorectal Cancer Screening: Colonoscopy 1960 Pneumococcal Vaccine: 50+ Years (1 of 1 - PCV) 07/26/2009 Zoster Vaccines (1 of 2) 07/26/2009 Hepatitis C Screening 05/05/2019 Osteoporosis Screening (Bone [...] LAB CHEMISTRY METHOD 03/08/2024 4:32 PM EST [facility] Triglycerides 206(H) 0 - 150 mg/dL LAB CHEMISTRY METHOD 03/08/2024 4:32 PM EST [facility] HDL 64 >=40 mg/dL LAB CHEMISTRY METHOD 03/08/2024 4:32 PM EST [facility] LDL Calculated 145(H) 0 - 100 mg/dL LAB CHEMISTRY METHOD 03/08/2024 4:32 PM EST [facility] VLDL Cholesterol Vidal 41.2 mg/dL LAB CHEMISTRY METHOD 03/08/2024 4:32 PM EST [facility] Non HDL Chol. (LDL+VLDL) 186(H) <145 mg/dL LAB CHEMISTRY METHOD 03/08/2024 4:32 PM EST [facility] Chol/HDL Ratio 3.9 0.0 - 4.4 LAB CHEMISTRY METHOD 03/08/2024 4:32 PM EST [facility] Blood Venous blood specimen / Unknown Venipuncture / Unknown 03/08/2024 12:30 PM EST 03/08/2024 1:33 PM EST us Ale Thomas MD LAB BLOOD ORDERABLES Final Res ult [facility] [address] [place] [address], * [facility] SCREENING DIGITAL (12/15/2023 3:45 PM EDT) Anatomical Region Laterality Modality Mammography 12/15/2023 2:56 PM EDT Narrative 12/15/2023 3:45 PM EDT [facility] Diagnostic Imaging Department [address] [place] [address] Patient: ADELAARTIS Angeles./Age/Sex: 1960 - 63 - F Unit#: [id number] Location/Status: [facility] CLI Mnemonic/Ordering Site: [facility] Ordering Physician: ALE THOMAS MD [facility] Screening Digital - 12/15/23 - 1521 Report Status:Signed EXAM: [facility] Screening Digital EXAM DATE AND TIME: 12/15/2023 3:21 PM HISTORY: Screening. COMPARISON: 05/10/20, 09/20/18, 03/17/17 TECHNIQUE: Bilateral digital breast tomosynthesis was performed in the CC and MLO projections. Computer aided detection with Soluto 3D 3.1 was employed. TISSUE DENSITY: b. [...] Mammogram performed at [facility] [address] [place] [address] Dictating Physician: SOSA BONE MD Electronically Signed by: SOSA BONE MD Dic Date/Time: 12/15/231543 Sign date/Time: 12/15/23 1545 Procedure Note Sosa Bone MD - 01/13/2024 [facility] Diagnostic Imaging Department [address] [place] [address] Patient: ADELAARTIS./Age/Sex: 1960 - 63 - F Unit#: [id number] Location/Status: [facility] Mnemonic/Ordering Site: [facility] Ordering Physician: ALE THOMAS MD [facility] Screening Digital - 12/15/23 - 1521 Report Status:Signed EXAM: [facility] Screening Digital EXAM DATE AND TIME: 12/15/2023 3:21 PM HISTORY: Screening. COMPARISON: 05/10/20, 09/20/18, 03/17/17 TECHNIQUE: Bilateral digital breast tomosynthesis was performed in the CCand MLO projections. Computer aided detection with Soluto 3D 3.1was employed. TISSUE DENSITY: b. There [...] Mammogram performed at [facility] [place] [address] Dictating Physician: SOSA BONE MD Electronically Signed by: SOSA BONE MD Dic Date/Time: 12/15/231543 Sign date/Time: 12/15/231544 Ale Thomas MD IMG BI PROCEDURES Final Result * Cervical Cancer Screening: HPV (12/13/2019) Cervical Cancer Screening: HPV negative,a bstracted us Historical Provider HEALTH MAINTENANCE Final Result from Last 3 Months or Most Recently Relevant to Health Maintenance Insurance [employer] Care Teams Enamel Drier Relationship Specialty Start Date End Date Ale Thomas MD [address] [place] [address] PCP - General Oncology 02/09/24
--- OUTSIDE RECORDS SUMMARY | 2025-01-10 10:46 | XMS_ITS | Clinical Summary ---
Author Organization [facility] Address [address] [place] [address] Phone Care Team Providers Care Warehouse Helper Name Role Phone Ej Thomas MD Primary Care Provider [phone] Allergies Active Allergy Reactions Criticality Noted Date Comments Sulfa (Sulfonamide Antibiotics) Headaches 11/2016 Medications CALCIUM CARB/MAGNESIUM CARB (CALCIUM & MAGNESIUM CARBONATES ORAL) Active b complex vitamins (VITAMINS B COMPLEX) tablet Acti ve ascorbic acid, vitamin C, (ASCORBIC ACID WITH JESSENIA HIPS) 500 MG tablet Active vitamin E 100 units capsule 400 units per pt Active ZINC ORAL 15 mg Active BILBERRY ORAL Take by mouth. Active traZODone (DESYREL) 100 MG tablet TAKE 1 TABLET BY MOUTH EVERY DAY AT BEDTIME FOR 30 DAYS 4 Active estradioL (ESTRACE) 0.01 % (0.1 mg/gram) vaginal creamIndication s:Genitourinary syndrome of menopause Place 1 gram per vagina twice per week at night. 42.5 g 5 Active black cohosh root extract 80 mg Cap as directed 12/29/19 25 Discontinu ed(No longer taking) Active Problems Problem Noted Date Diagnosed Date Menopausal vaginal dryness 02/05/2017 Assessment & Plan (02/05/2017 4:27 PM EST): Risks, benefits and alternatives of treatment reviewed with patient including local estrogen treatment. She has opted for a trial of Estrace. I have recommended using 1 gram twice weekly. Encounters Date Type Department Care Team Description 12/28/2024 2:41 PM EDT - 12/28/2024 11:59 PM EDT Hospital Encounter [facility] [address] [place] [address] Feng Mar MD Discharge Disposition: Home or Self Care 12/28/2024 1:50 PM EDT Office Visit [facility] [address] [place] [address] Feng Mar MD Encounter for annual routine gynecological examination (Primary Dx); Breast cancer screening by mammogram; Screening for cervical cancer; Decreased libido; Genitourinary syndrome of menopause 12/16/2024 Telephone [facility] [address] [place] [address] Janelle Gipson MD Appointment from Last 3 [...] Sign Reading Time Taken Comments Blood Pressure 110/86 12/28/2024 2:03 PM EDT Pulse - - Temperature - - Respiratory Rate - - Oxygen Saturation - - Inhaled Oxygen Concentration - - Weight 66.7 kg (147 lb) 12/28/2024 2:03 PM EDT Height 149.9 cm (4' 11 ) 12/28/2024 2:03 PM EDT Body Mass Index 29.69 12/28/2024 2:03 PM EDT Plan of Treatment Health Maintenance Due Date Last Done Comments DEPRESSION SCREENING 1971 HEPATITIS C SCREENING 07/26/1977 HIV ONE-TIME SCREENING (18-65 YEARS) 07/26/1977 SCREENING FOR DIABETES 07/26/1994 MAMMOGRAM 1999 COLOGUARD 07/26/2004 COLONOSCOPY 07/26/2004 COLORECTAL CANCER SCREENING 07/26/2004 FIT TEST 07/26/2004 FOBT 07/26/2004 SIGMOIDOSCOPY 07/26/2004 VIRTUAL COLONOSCOPY 07/26/2004 PNEUMOCOCCAL VACCINES (50+ years) (1 of 1 - PCV) 07/26/2009 ZOSTER VACCINES (1 of 2) 07/26/2009 OSTEOPOROSIS SCREENING INITIAL (ONE-TIME) 07/26/2024 INFLUENZA VACCINE (#1) 2024 12/31/2021, 2020 COVID-19 VACCINE ( season) 2024 04/24/2023, 04/24/2023, 02/19/2022, Additional history exists Adult Td,Tdap Booster 12/16/2025 12/17/2015 LIPID PANEL 03/08/2029 03/08/2024 RSV VACCINE (1 - 1-dose 75+ series) 07/26/2034 SMOKING STATUS SCREENING (Once After 26 Yrs) Completed 12/28/2024 HEPATITIS A VACCINES Aged Out No long [...] this topic Medical Devices Not on file Procedures Procedure Name Priority Date/Time Associated Diagnosis Comments TESTOSTERONE, TOTAL AND FREE Routine 12/28/2024 2:46 PM EDT Decreased libido PAP TEST Routine 12/28/2024 12:00 AM EDT from Last 3 Months Results * Testosterone, total and free (12/28/2024 2:46 PM EDT) FREE TESTOSTERONE 0.23 <0.13 - 0.84 ng/dL [facility] Comment: (NOTE) ADDITIONAL INFORMATION This test was developed and its performance characteristics determined by [facility] in a manner consistent with CLIA requirements. This test has not been cleared or approved by the U.S. Food and Drug Administration. TESTOSTERONE, TOTAL 9.6 8 - 60 ng/dL [facility] Comment: (NOTE) ADDITIONAL INFORMATION Testing performed by Liquid Chromatography-Tandem Mass Spectrometry (LC-MS/MS). This test was developed and its performance characteristics determined by [facility] in a manner consistent with CLIA requirements. This test has not been cleared or approved by the U.S. Food and Drug Administration. Blood 12/28/2024 2:46 PM EDT 12/28/2024 2:48 PM EDT Feng Mar MD LAB BLOOD ORDERABLES Final Re sult [facility] [address] [place] [address] * Pap Test (12/28/2024 12:00 AM EDT) 12/28/2024 12/29/2024 8:1 1 AM EDT Narrative SEE NARRATIVE - 01/03/2025 3:21 PM EDT [address] [address] Motor Vehicle Inspector: Ramo Stuart MD AVIONICS ELECTRONICS TECHNICIAN Cytology Report FINAL DIAGNOSIS A. PAP SMEAR (THIN PREP) CE: SPECIMEN ADEQUACY: Satisfactory for evaluation; transformation zone present. Evaluation limited by scant cellularity. INTERPRETATION: NEGATIVE FOR INTRAEPITHELIAL LESION OR MALIGNANCY. Atrophy. This specimen was analyzed by the automated ThinPrep Imaging System ([employer].) and the selected gabriel were reviewed by a mainspring winder and oiler. Electronically Signed Out By: PARDEEP Cid(ASCP) The Pap test is a screening test primarily for squamous cancers and precursors and has associated false-negative and false-positive results. New technologies such as liquid-based preparations may decrease but will not eliminate all false-negative results. Regular sampling and follow-up of unexplained clinical signs and symptoms are recommended to minimize false negative results. CLINICAL HISTORY Date of Last Menstrual Period: Not Provided Menstrual History: Post Menopausal Other Clinical Conditions: Screening Pap SPECIMEN SOURCE A: PAP SMEAR (THIN PREP) CE Patient Name: ARTIS BAÑUELOS : 1960 (Age: 64) Sex: F Institution: [facility] Location: [facility] Date of Collection: 12/28/2024 Date of Reported: 01/03/2025 15:21 Results to: Feng Mar MD, BS Feng Mar MD CYTOLOGY ORDERABLES Final Res ult SEE NARRATIVE from Last 3 Months Insurance MEDICARE PART A & B [email or web address] MEDEX SUPPLEMENT MEDICARE PART A & B [email or web address] MEDEX SUPPLEMENT MEDICARE PART A & B [employer] MEDEX SUPPLEMENT MEDICARE PART A & B [email or web address] MEDEX SUPPLEMENT MEDICARE PART A & B [employer]OSS MEDEX SUPPLEMENT MEDICARE PART A & B [email or web address] MEDEX SUPPLEMENT Care Teams Warehouse Helper Relationship Specialty Start Date End Date Ej Thomas MD [address] [place] [address] [place] [address] PCP - General 01/15/17 Additional Source Comments The information contained in this document represents components of the legal health record. It is not the complete legal health record.[facility]
--- OUTSIDE RECORDS SUMMARY | 2025-01-10 10:46 | XMS_ITS | Data Portability ---
Author Organization [place] [facility], Allergy Address [address] [address] Care Team Providers Care Biomedical Equipment Specialist Name Role Phone ALE ALLEN Referring Provider [phone] Assessment No assessment recorded. Plan of Treatment [...] contr ast No observ ation [facility] ed. [facility] [address] [facility] [address], [place], [address], 06/14/2024 12:05:18 07/19/19 25 06/14/2024 CT, neck, soft tissu e, w/ contr ast No observ ation record ed. [email or web address] Not Available 2024 14:16:57 Result Notes None recorded. Problems Name Problem SNOMED Code Status Onset Date Resolution Date Notes Provider Name and Address Organization Details Recorded Time Chronic hoarseness 9867751695165 Active 2024 SYLVAIN DURHAM MD [address] [facility] [address], [place], [address], [place] [facility] 10:35:44 Thyroid nodule 082890170 Active 2024 SYLVAIN DURHAM MD [address] [facility], [place], [address], [facility] - [facility] 08:07:09 Problem Notes None recorded. Procedures Surgical History Date Name Laterality Status Provider Name and Address Organization Details Recorded Time 06/15/19 25 Fiberoptic Laryngoscopy (Comprehensive) completed SYLVAIN DURHAM MD [address] [facility], [place], [address], [facility] - [facility] 06/16/2024 08:07:02 Imaging Results None recorded. Procedure Notes None recorded. Medical Equipment None Reported. Allergies Allergen ID Allergen Name Allergen Category Reaction Reaction Severity Criticality Documentation Date Start Date Code Code System Note Provider Name and Address Organization Details Recorded Time 478775 Substance with sulfonami de structure and antibacte rial mechanism of action (substanc e) medicatio n Not available Not available Not available 06/14/2024 [id number] SNOMED Genie watson [facility] 10:04:17 Medications Name Sig Start Date Stop [...] Updated DateTime 06/14/2024 152.4 cm 28.5 kg/m2 17672.49 tete [place] - [facility] 06/14/2024 10:04:05 Social History None recorded. Functional Status None recorded. Mental Status None recorded. Family History Nothing Reported. Medical History No medical history recorded. Gynecological HistoryNo gynecological history recorded. Obstetrics History GPAL:G 0 P 0 0 0 0 Past Encounters Encounter ID Performer Location Encounter Start Date Encounter Closed Date Diagnosis/Indication Diagnosis SNOMED-CT Code Diagnosis ICD10 Code Diagnosis IMO Codes Diagnosis Note [id number] SYLVAIN DURHAM MD [facility] on [address] [place] [address] 06/14/2024 09:46:39 06/14/2024 10:40:33 Chronic hoarseness 8790886375 105 R49.0 Thankfully , her hoarseness improved [...] voice worsens that she restarted. Thyroid nodule 033980290 E04.1 There is no vocal cord paralysis [...] Arce Member ID Guarantor Name 07/25/2024 1 [facility] [id number] Danielle Bañuelos [id number] 1 Danielle Bañuelos Notes Date Note Type Note Provider Name and Address Organization Details Recorded Time 06/14/2024 text/html ROS as noted in the HPI 63 yo F presents for some voice changes a couple years agoPCP put on omeprazolehas thyroid nodulevoice better now with some supportive supplements and omeprazolegetting biopsy of the thyroidseeing Dr. Shrestha from endocrinology, had US showing 2.6 x 3.4 x 3 noduleCT neck 05/25/24 reviewed. Larynx not well evaluated due to patient motion. SYLVAIN DURHAM MD [address] [place] [address], [place], [address], [facility] - [facility] 06/16/2024 08:09:59 OBGyn Episode No OBEpisode recorded.
--- OUTSIDE RECORDS SUMMARY | 2025-01-10 10:46 | XMS_ITS | Patient Health Record ---
Author Organization Ej Thomas III, MD Address [address] [place] [address] Care Team Providers Care Creative/Art Director Name Role Phone Dr. Ej Thomas III [...] Culture Reviewed date:10/12/2024 02:45:58 PM Interpretation: Performing Lab:[facility], [address] [place] [phone] Notes/Report: O:ESCCOL Escherichia coli Urine Culture Quant Urine Culture > 100,000 cfu/mL Ampicillin <=2 Cefazolin (Urine) <=1 Cefepime <=0.12 Ceftriaxone <=0.25 Ciprofloxacin <=0.06 Gentamicin <=1 Nitrofurantoin <=16 Trimethoprim/Sulfamethoxa zole <=20 Complete Blood Count Auto Di ff Reviewed date:10/12/2024 02:45:59 PM Interpretation: Performing Lab:[facility], [address] [place] [phone] Notes/Report: White Blood Count 10.6 4.8-10.8 X10*3/uL [...] Microscopic Reviewed date:10/12/2024 02:45:59 PM Interpretation: Performing Lab:[facility], [address] [place] [phone] Notes/Report: Color Urine Yellow Appearance Urine Clear PH 6.5 5.0-9.0 Glucose Urine UA Negative Negative mg/dL Urine Blood Small (1+) Negative Specific [place] - Urine <= 1.005 1.005-1.025 Urine Protein Negative Neg-Trace mg/dL Urine Ketones Negative Negative mg/dL Nitrite Urine Negative Negative Leukocyte Esterase Urine Large (3+) Negative RBC Urine 0-2 0-2 /HPF WBC Urine >50 0-5 /HPF WBC Clumps Urine Present Squamous Epithelial Cell Urine 0-2 0-2 /HPF Bacteria Urine 4+ None Seen Hyaline Casts Urine 0-2 0-2 /LPF Comprehensive [place]. Panel Fa st Reviewed date:10/12/2024 02:45:59 PM Interpretation: Performing Lab:[facility], [address] [place] [phone] Notes/Report: Sodium 137 135-145 mmol/L Potassium 4.4 [...] Panel Reviewed date:10/12/2024 02:45:59 PM Interpretation: Performing Lab:[facility], [address] [place] [phone] Notes/Report: Triglycerides 161 <150 mg/dL Desirable Triglyceride: [...] Antibody Reviewed date:10/14/2024 12:12:09 PM Interpretation: Performing Lab:[facility], [address] [place] [phone] Notes/Report: Varicella IgG Antibody 6.61 Signal to Cut-off S/CO Interpretation --------- - <1.00 Negative - Antibody not detected > [...] Screen, ACIF. THIS TEST WAS PERFORMED AT: [facility] [employer] [facility] [employer] [address] [address] DOUGLAS ACE MD XR DEXA axial skeleton (Not yet reviewed by provider) Interpretation: Performing Lab: Notes/Report: [address] [place] [address] Mammography Report Signed Patient: Danielle Bañuleos MR#: [id number] 7 : 1960 Acct:[id number] Age/Sex: 64 / F ADM Date: 12/20/24 Loc: HO.MAMMO Attending Dr: Ej Thomas MD Ordering Physician: Ej Thomas MD Results: Date of Service: 12/20/24 Follow Up: Procedure(s): XR DEXA axial skeleton Accession Number(s): [id number] cc: Ej Thomas MD Reason For Exam: M81.0 : Age-related osteoporosis STUDY: DUAL ENERGY X-RAY ABSORPTIOMETRY / DXA REASON FOR EXAM: Female, 64 years old M81.0 : Age-related osteoporosis TECHNIQUE: Bone Mineral Density (BMD) measurements of the lumbar spine and left hip were obtained using [employer] COMPARISON: None FINDINGS: L1-L4 BMD: 1.170 g/cm2 L1-L4 T score: -0.1. This corresponds to Normal bone density. Left femoral neck BMD: 1.050 g/cm2 Left femoral neck T score: 0.1. This corresponds to Normal bone density. Left total hip BMD: 1.071 g/cm2 Left total hip T score: 0.5. This corresponds to Normal bone density. MM/XR DEXA axial skeleton IMPRESSION: Normal bone density Reference Information: The T-score is the number of standard deviations above or below the standard which is normal for young adults at their peak bone mineral density. The World Health Organization (WHO) interprets the T-scores as follows: At or above -1 SD Normal bone density Between -1 and -2.5 SD Osteopenia At or below -2.5 SD Osteoporosis Electronically signed by: Noah Gonzalez MD 12/21/2024 07:38 AM EDT Dictated By: Noah Gonzalez MD Signed By: <Electronically signed by Noah Gonzalez MD in OV> 12/21/24 0738 DD/ 5 TD/TT: 12/20/24904 Relay Record Clerk: [facility] [address] [place] [address] [place] [address] Mammography Report Signed Patient: Addis Bañuelos MR#: [id number] 7 : 1960 Acct:[id number] Age/Sex: 64 / F ADM Date: 12/20/24 Loc: HO.MAMMO Attending Dr: Ej Thomas MD Ordering Physician: Ej Thomas MD Results: Date of Service: 12/20/24 Follow Up: Procedure(s): XR DEX A axial skeleton Accession Number(s): [id number] cc: Ej Thomas MD Reason For Exam: M81 .0 : Age-related osteoporosis STUDY: DUAL ENERGY X-RAY ABSORPTIOMETRY / DXA REASON FOR EXAM: Female, 64 years old M81.0 : Age-related osteoporosis TECHNIQUE: Bone Mineral Density (BMD) measurements of the lumbar spine and left hip were obtained using [employer] COMPARISON: None __ FINDINGS: L1-L4 BMD: 1.170 g/cm2 L1-L4 T score: -0.1. This corresponds to Normal bone density. Left femoral neck BM D: 1.050 g/cm2 Left femoral neck T score: 0.1. This corresponds to Normal bone density. Left total hip BMD: 1.071 g/cm2 Left total hip T score: 0.5. This corresponds to Normal bone density. MM/XR DEXA axial skeleton IMPRESSION: Normal bone density __ Reference Information: The T-score is the number of standard deviations above or below the standard which is normal for young adults at their peak bone mineral density. The World Health Organization (WHO) interprets the T-scores as follows: At or above -1 SD Normal bone density Between -1 and -2.5 SD Osteopenia At or below -2.5 SD Osteoporosis Electronically celi d by: Noah Gonzalez MD 12/21/2024 07:38 AM EDT Dictated By: Noah Gonzalez MD Signed By: <Electronically signed by Noah Gonzlaez MD in OV> 12/21/24 0738 DD/ 5 TD/TT: 12/20/24 09 Relay Record Clerk: Complete Blood Count Auto Di ff (Not yet reviewed by provider) Interpretation: Performing Lab:[facility], [address], [place] [address] Notes/Report: White Blood Count 5.5 4.8-10.8 X10*3/uL Red Blood Count 4.79 4.20-5.50 X10*6/uL Hemoglobin 15.0 12.0-16.0 g/dl Hematocrit 43.8 37.0-47.0 % Mean Corpuscular Volume 91.4 80.0-98.0 fL Mean Corpuscular Hemoglobin 31.3 27.0-33.0 pg Mean Corpuscular HGB Conc 34.2 31.0-35.0 g/dl Red Cell Distribution Width 13.0 11.0-16.0 % Platelet Count 243 160-400 X10*3/uL Mean Platelet Volume 10.1 9.4-12.3 fL Neutrophils Percent Auto 54.8 45-73 % Imm Gran Pct Auto 0.4 0.0-0.4 % Lymphocytes Percent Auto 31.3 20-40 % Monocytes Percent Auto 11.9 2-11 % Eosinophils Percent Auto 1.1 0-4 % Basophils Percent Auto 0.5 0-2 % NRBC Pct Auto 0.0 0.0-0.2 /100WBC Neutrophils Absolute Auto 3.0 2.0-8.3 x10*3/u L Imm Gran Abs Auto 0.02 0.00-0.03 X10*3/uL Lymphocytes Absolute Auto 1.7 1.2-4.9 X10*3/u L Monocytes Absolute Auto 0.7 0.1-1.2 X10*3/uL Eosinophils Absolute Auto 0.1 0.0-0.4 X10*3/u L Basophils Absolute Auto 0.0 0.0-0.2 X10*3/uL NRBC Abs Auto 0.000 0.0-0.012 X10*3/uL Reason For Referral Reason Evaluate and Treat New Onset of Hoarseness of Voice Diagnosis 1 Hoarseness of voice (R49.0) Referral Organization Ej Thomas III, MD Referring Provider First Name Ej Referring Provider Last Name William Referring Provider Speciality Internal M edicine Referred Provider [facility], [facility], [facility] Referred Provider Specialty Otolaryngolo gy General Notes D, Wendi 03/17/2024 02:51:44 PM > Referral, cover sheet and progress note faxed Referral Priority Routine Referral Appointment Date 06/14/2024 Reason EVALUATE AND TREATME NT 2.6 X 3X 3.4 CM THYROID NODULE ON LEFT SIDE biopsy needed Diagnosis 1 Thyroid nodule (E04. 1) Referral Organization Ej Thomas III, MD Referring Provider First Name Ej Referring Provider Last Name Thomas Referring Provider Speciality Internal edicine Referred Provider BOB FLAHERTY Referred Provider Specialty Endocrinolog y General Notes Carmen Zavala CMA 06/09 01:31:35 PM > ref/demo/progress note/testing faxed to Dr Flaherty willow machine operator, Carmen Zavala CMA 06/09/2024 01:52:21 PM > pt has appt the Dr Flaherty on 06/15/2024 at 10am Referral Priority Routine Referral Appointment Date 06/15/2024 Reason evaluate and treatme nt yearly pelvic and pap smear Diagnosis 1 Annual physical exam (Z00.00) Referral Organization Ej Thomas III, MD Referring Provider First Name Ej Referring Provider Last Name Thomas Referring Provider Speciality Internal edicine Referred Organization [facility] nter Referred Provider [facility] er, [employer] Referred Address [address] [place] [address],[place], [place],[id number], Referred Provider Specialty OB - Gynecol ogy General Notes Carmen Zavala CMA 10/26 01:41:41 PM >ref/demo/progress note /labs faxed to Lucas WILEY Suzanne CMA 11/17/2024 02:22:41 PM > Called Eugenio WILEY [phone] spoke to Ana she stated pt has [...] HCl 100 MG TAKE 1 TABLET BY [facility] EVERY DAY AT BEDTIME [...] Problem Status W/U Status Risk Notes Problem 04275586 Postmenopausal (Z78.0) Active confirmed She is under th e care of her basket person. She has had no vaginal bleeding. She denies having any hot flashes or sweats. Problem 824444893 Overweight (E66.3) Active confirmed She has gained 4 pounds and remains overweight. We discussed diet and nutrition and made a plan to lose weight at a rate of one half of a pound per week. Problem 012903183 Seizure disorder (G40.909) Active confirmed No further seizures have occurred in a prolonged period of time. Problem Hypothyroidism (89454257) Hypothyroidism, unspecified (E03.9) Active confirmed Thyroid functio n tests have been requested. No change in her regimen was made today. She has been compliant with her replacement therapy. Problem Hyperlipidemia (46420174) Hyperlipidemia, unspecified (E78.5) Active confirmed The current lip id profile shows her cholesterol values to be 242 but the triglycerides are slightly elevated. I recommended a healthy, low animal fat diet with regular exercise and aggressive weight loss. No change in her medications was necessary.She does not wish to take Problem 006370372 Thyroid nodule (E04.1) Active confirmed Endocrinology h as referred her to head and neck surgery for surgical consultation. A needle biopsy of this area was negative.A hemithyroidectomy is planned for February 2025. Problem 962045055 Cervical disc disorder with radiculopathy (M50.10) Active confirmed The pain in her neck is almost gone. Her range of motion is normal. She has no numbness or tingling in her extremities. Problem 165146112 Allergic rhinitis, seasonal (J30.2) Active confirmed She has begun t o notice peripheral allergies. She is going to use loratadine as needed and has a nasal spray, fluticasone. 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) Active confirmed She was [...] Date Provider Diagnosis Ej Thomas III, MD [address] [place] [address] [place] [address] 03/14/2024 Ej Thomas Hyperlipidemia, unspecified E78.5 ; Overweight E66.3 ; Cervical disc disorder with radiculopathy M50.10 ; Seizure disorder G40.909 and Skin lesion L98.9 Ej Thomas III, MD [address] [place] [address] [place] [address] 05/06/2024 Ej Thomas Hyperlipidemia, unspecified E78.5 ; Hypothyroidism, unspecified E03.9 ; Vocal cord paralysis J38.00 ; Cervical disc disorder with radiculopathy M50.10 ; Seizure disorder G40.909 ; Overweight E66.3 and Allergic rhinitis, seasonal J30.2 Ej Thomas III, MD [address] [place] [address] [place] [address] 07/18/2024 Ej Thomas Exposure to Streptococcal pharyngitis Z20.818 ; Allergic rhinitis, seasonal J30.2 ; Thyroid nodule E04.1 ; Hypothyroidism, unspecified E03.9 ; Overweight E66.3 ; Cervical disc disorder with radiculopathy M50.10 and Seizure disorder G40.909 Ej Thomas III, MD [address] [place] [address] [place] [address] 10/12/2024 Ej Thomas Overweight E66.3 ; Thyroid nodule E04.1 ; Urinary tract infection, site not specified N39.0 ; 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 ; Postmenopausal Z78.0 ; Allergic rhinitis, seasonal J30.2 ; Seizure disorder G40.909 ; Cervical disc disorder with radiculopathy M50.10 ; Hypothyroidism, unspecified E03.9 and Hyperlipidemia, unspecified E78.5 Ej Thomas III, MD [address] [place] [address] [place] [address] 05/27/2024 Ej Thomas III, MD [address] [place] [address] [place] [address] 06/02/2024 Ej Thomas Thyroid nodule E04.1 Ej Thomas III, MD [address] [place] [address] [place] [address] 06/08/2024 Ej Thomas III, MD [address] [place] [address] [place] [address] 06/15/2024 Ej Thomas III, MD [address] [place] [address] [place] [address] 06/22/2024 Ej Thomas III, MD [address] [place] [address] [place] [address] 07/18/2024 Ej Thomas III, MD [address] [place] [address] [place] [address] 10/10/2024 Ej Thomas Urinary tract infect ion, site not specified N39.0 Ej Thomas III, MD [address] [place] [address] [place] [address] 10/10/2024 Ej Thomas III, MD [address] [place] [address] [place] [address] 12/06/2024 Ej Thomas III, MD [address] [place] [address] [place] [address] 12/06/2024 Ej Thomas Assessments Encounter Date Diagnosis [...] will be observed until she sees her recruiting associate again. 05/06/2024 Seizure disorder (ICD-10 - G40.909) [...] She is under the care of her basket person. She has had no vaginal bleeding. She [...] DIFF 06/08/2023 CBC WITH AUTO DIFF 03/14/2024 Complete Blood Count Auto Diff Urinalysis 10/10/2024 Lipid Panel 06/24/2021 Lipid Panel 06/08/2023 Lipid Panel 12/19/2020 Lipid Panel 03/14/2024 Lipid Panel 10/12/2024 Lipid Panel 01/15/2023 Varicella IgG Antibody 03/14/2024 Urine Culture 01/19/2023 XR DEXA axial skeleton 12/20/2024 US thyroid 06/02/2024 Next Appt Details Provider Name:Ej Thomas , 01/11/2025 02:30:00 PM, [address] [place] [address] [address], [place], [address], Provider Name:Ej Thomas , 10/16/2025 02:00:00 PM, [address] [place] [address] [address], [place], [address], Insurance Providers Payer Name Payer Address Payer Phone Subscriber Number Group Number Insured Name Patient Relationship to Insured Coverage Start Date Coverage End Date MEDICARE NGS [address] [place] [address] [phone] [id number] Danielle Bañuelos Self - patient is the insured [facility] [address] [place], [place] [id number] [phone] [id number] Danielle Bañuelos Self - patient is the insured Medical (General) History Medical History History ICD Code [id number] seasonal allergies seizure disorder age 14, no longer treat ed eczema cervical radiculopathy glaucoma Surgical History Surgery Date(Month/Year) No history root canal 09/2023 Hospitalization History Reason Date(Month/Year) No history
[2025-01-10 11:26] LABS: Alanine Aminotransferase 163 U/L (0-31); Albumin Level 4.6 g/dL (3.5-5.0); Alkaline Phosphatase 93 U/L (39-117); Anion Gap 12 (12-20); Aspartate Amino Transferase 61 U/L (5-31); Blood Urea Nitrogen 21 mg/dL (9-16); Calcium 9.6 mg/dL (8.4-10.2); Carbon Dioxide 28 mmol/L (22-29); Chloride 106 mmol/L (96-108); Cholesterol 265 mg/dL (<200); Estimated Glomerular Filt Rate > 60; HDL Cholesterol 59 mg/dL (>40); Potassium 4.7 mmol/L (3.3-5.1); Sodium 141 mmol/L (135-145); Total Protein 7.0 g/dL (6.5-8.0); Triglycerides 246 mg/dL (<150)
== END 2025-01-10 09:39 | disposition home or self-care (01) ==
LOC: HO.LAB 09:38
PROVIDERS: PCP Internal Medicine Medical Oncology; Visit Provider Internal Medicine Medical Oncology
DX: Z00.00 Encounter for general adult medical examination without abnormal findings (principal); N39.0 Urinary tract infection, site not specified; Z20.818 Contact with and (suspected) exposure to other bacterial communicable diseases; E66.3 Overweight
CPT/HCPCS: 36415; 80053; 80061; 85025

== ENCOUNTER 2025-01-24 10:10 | Outpatient (REF) | payer MEDICARE, SELFPAY ==
--- OUTSIDE RECORDS SUMMARY | 2024-06-15 11:21 | XMS_ITS ---
Author Organization Ej Thomas III, MD Address [address] [place] [address] Care Team Providers Care Night Shift Manager Name Role Phone Dr. Ej Thomas III Primary Care Provider [phone] REASON FOR VISIT Rescheduled Endocrinology Social History Sex Assigned At : Social History Observation Description Sex Assigned At Female Encounters Encounter Location Date Provider Diagnosis Ej Thomas III, MD [address] [place] [address] [place] [address] 06/15/2024 Ej Thomas Plan Of Treatment Next Appt Details Provider Name:Ej Thomas , 01/26/2025 09:30:00 AM, [address] [place] [address] [place], [address], Provider Name:Ej Thomas , 10/16/2025 02:00:00 PM, [address] [place] [address] [place], [address], Progress Notes * DURGADanielle BROCKDOB:1960 (63 yo F)Acc No.[id number]:06/15/2024 Patient: Danielle GONZALEZ :1960 A ge:63 Y S ex:Female Address: [place] [address] * true * Date: Generated for Printi ng/Faxing/eTransmitting on: 1 12:21 PM EDT
--- OUTSIDE RECORDS SUMMARY | 2024-06-22 11:30 | XMS_ITS ---
Author Organization Ej Thomas III, MD Address [address] [facility] [place] [address] Care Team Providers Care Homicide Squad Lieutenant Name Role Phone Dr. Ej Thomas III Primary Care Provider REASON FOR VISIT Message Social History Sex Assigned At : Social History Observation Description Sex Assigned At Female Encounters Encounter Location Date Provider Diagnosis Ej Thomas III, MD [address] [place] [address] [place] [address] 06/22/2024 Ej Thomas Plan Of Treatment Next Appt Details Provider Name:Ej Thomas , 01/26/2025 09:30:00 AM, [address] [place] [address] [place], [address], Provider Name:Ej Thomas , 10/16/2025 02:00:00 PM, [address] [place] [address] [place], [address], Progress Notes * DURGADanielle BROCKDOB:1960 (63 yo F)Acc No.[id number]:06/22/2024 Patient: Danielle GONZALEZ :1960 A ge:63 Y S ex:Female Address: [place] [address] * true * Date: Generated for Printi ng/Faxing/eTransmitting on: 1 12:20 PM EDT
--- OUTSIDE RECORDS SUMMARY | 2024-07-18 07:11 | XMS_ITS ---
Author Organization Ej Thomas III, MD Address [address] [place] [address] Care Team Providers Care Collection Development Librarian Name Role Phone Dr. Ej Thomas III Primary Care Provider [phone] REASON FOR VISIT Message Social History Sex Assigned At : Social History Observation Description Sex Assigned At Female Encounters Encounter Location Date Provider Diagnosis Ej Thomas III, MD [address] [place] [address] [place] [address] 07/18/2024 Ej Thomas Plan Of Treatment Next Appt Details Provider Name:Ej Thomsa , 01/26/2025 09:30:00 AM, [address] [place] [address] [place], [address], Provider Name:Ej Thomas , 10/16/2025 02:00:00 PM, [address] [place] [address] [place], [address], Progress Notes * DURGADanielle BROCKDOB:1960 (63 yo F)Acc No.[id number]:07/18/2024 Patient: Danielle GONZALEZ :1960 A ge:63 Y S ex:Female Address: [place] [address] * true * Date: Generated for Printi ng/Faxing/eTransmitting on: 1 12:20 PM EDT
--- OUTSIDE RECORDS SUMMARY | 2024-07-18 10:45 | XMS_ITS ---
Author Organization Ej Thomas III, MD Address [address] [place] [address] Care Team Providers Care Steel Checker Name Role Phone Dr. Ej Thomas III Primary Care Provider Allergies Allergen (clinical drug ingredient) Drug/Non Drug Allergy documented on EMR Reaction Allergy Type Onset Date Status amoxicillin Amoxicillin diarrhea Drug Allergy Act emanuel Sulfur nausea, headaches, stomach pain Drug Allergy Active REASON FOR VISIT Exposure to streptococcus pyogenous, sore throat, Thyroid nodule, Cervical radiculopathy, Hoarseness, Hypothyroidism Medications Medication SIG (Take, Route, Frequency, Duration) Notes Start Date End Date Status Ibuprofen 200 MG 2 tablets with food or milk as needed Orally every 6 hrs 03/04/2018 Active Acetaminophen 325 MG 2 tablet as needed Orally every 6 hrs 03/04/2018 Active Estrogens, Conjugated 0.625 MG/GM 1 gram Vaginal in Urethra Twice a week Active Red Yeast Rice 600 MG as directed Orally Active ZyrTEC Allergy 10 MG 1 tablet Orally Onc e a day 03/04/2018 Active Probiotic 250 MG as directed Orally Active Vitamin A 2400 MCG (8000 UT) 1 capsule with food or milk Orally Once a day Active Fish Oil 1000 MG 1 capsule Orally Onc e a day Active Antioxidant - as directed Orally Active levoFLOXacin 500 MG 1 tablet Orally Once a day for 10 days 07/18/2024 07/28/2024 Active Garcinia Cambogia-Chromium 500-200 MG-MCG as directed Orally Active traZODone HCl 100 MG TAKE 1 TABLET BY MO UTH EVERY DAY AT BEDTIME FOR 30 DAYS Active Calcium 600 MG 1 tablet with meals Orally Twice a day Active Vitamin E 100 UNIT as directed Orally Active Vitamin C 500 MG as directed Orally Active Magnesium 300 MG 1 capsule with a neno l Orally Once a day Active Social History Tobacco Use: Social History Observation Description Date Details (start date - stop date) Never Smoker NA - NA Sex Assigned At : Social History Observation Description Sex Assigned At Female Tobacco Use/Smoking Question Answer Notes Patient is a nonsmoker Additional Findings: Tobacco Non-User Aggressive non-smoker Encounters Encounter Location Date Provider Diagnosis Ej Thomas III, MD [address] [place] [address] [place] [address] 07/18/2024 Ej Thomas Exposure to Streptococcal pharyngitis Z20.818 ; Allergic rhinitis, seasonal J30.2 ; Thyroid nodule E04.1 ; Hypothyroidism, unspecified E03.9 ; Overweight E66.3 ; Cervical disc disorder with radiculopathy M50.10 and Seizure disorder G40.909 Assessments Encounter Date Diagnosis (ICD Code) Assessment Notes Treat ment Notes Treatment Clinical Notes 07/18/2024 Exposure to Streptococcal pharyngitis (ICD-10 - Z20.818) She deeclined a prescription for amoxicillin saying it gave her diarrhea. I gave her a prescription for levofloxacin. 07/18/2024 Allergic rhinitis, seasonal (ICD-10 - J30.2) She has begun to notice peripheral allergies. She is going to use loratadine as needed and has a nasal spray, fluticasone. 07/18/2024 Thyroid nodule (ICD-10 - E04.1) Endocrinology has referred her to head and neck surgery for surgical consultation which will take place to room 12 2024. A needle biopsy of this area was negative. 07/18/2024 Hypothyroidism, unspecified (ICD-10 - E03.9) Thyroid function tests have been requested. No change in her regimen was made today. She has been compliant with her replacement therapy. 07/18/2024 Overweight (ICD-10 - E66.3) Her body mass index is 27. She has lost 1 pound. We discussed diet and nutrition. We made a plan to lose weight at a rate of one half of a pound per week. 07/18/2024 Cervical disc disorder with radiculopathy (ICD-10 - M50.10) The pain in her neck is almost gone. Her range of motion is normal. She has no numbness or tingling in her extremities. 07/18/2024 Seizure disorder (ICD-10 - G40.909) No further seizures have occurred in a prolonged period of time. Plan Of Treatment Medication Medication Name Sig Start Date Stop Date Notes Ibuprofen 200 MG 2 tablets with food or milk as needed Orally every 6 hrs 03/04/2018 Acetaminophen 325 MG 2 tablet as needed Orally every 6 hrs 03/04/2018 Estrogens, Conjugated 0.625 MG/GM 1 gram Vaginal in Urethra Twice a week Red Yeast Rice 600 MG as directed Orally ZyrTEC Allergy 10 MG 1 tablet Orally Once a day 03/04/2018 Probiotic 250 MG as directed Orally Vitamin A 2400 MCG (8000 UT) 1 capsule w ith food or milk Orally Once a day Fish Oil 1000 MG 1 capsule Orally Onc e a day Antioxidant - as directed Orally levoFLOXacin 500 MG 1 tablet Orally Once a day for 10 days 07/18/2024 07/28/2024 Garcinia Cambogia-Chromium 500-200 MG-MCG as directed Orally traZODone HCl 100 MG TAKE 1 TABLET BY MO UTH EVERY DAY AT BEDTIME FOR 30 DAYS Calcium 600 MG 1 tablet with meals Orally Twice a day Vitamin E 100 UNIT as directed Orally Vitamin C 500 MG as directed Orally Magnesium 300 MG 1 capsule with a neno l Orally Once a day Next Appt Details Follow Up: As Scheduled, Roma son: OV Provider Name:Ej Thomas , 01/26/2025 09:30:00 AM, [address] [place] [address] [address], [place], [address], Provider Name:Ej Thomas , 10/16/2025 02:00:00 PM, [address] [place] [address] [address], [place], [address], Progress Notes * Danielle BAÑUELOSDOB:1960 (63 yo F)Acc No.[id number]:07/18/2024 Patient: Danielle GONZALEZ Provider: Buster Thomas MD :1960 A ge:63 Y S ex:Female Date:07/18/2024 [facility] Subjective: * Chief Complaints: * E xposure to streptococcus pyogenousSore throatThyroid noduleCervical radiculopathyHoarsenessHypothyroidism * HPI: * : A family member has culture proven strep throat. She has had a worsening sore throat for 5 days. I have given her a prescription for Levaquin as she does not wish to take penicillin which she says gives her diarrhea. She is going to call me if she does not rapidly improve.? She had a biopsy done of the thyroid nodule which was negative for malignancy. The executive consultant told her that the thyroid nodule was compressing a nerve making her hoarse. There is volar she is not a candidate for radiofrequency ablation and has sent her to a head and neck surgeon, Dr. Rosenthal, for a surgical consultation at [facility]. This Will Take Pl., September 08 2024.She is otherwise well and has been compliant with all of her medications. Her voice was still hoarse but improved today. Telehealth L ocation of provider rendering services: { ...} [address] [place] [address] [place] [address] L ocation of patient: lolly ddress listed in demographics for today's visit P atient identification confirmed using: HAYLEY Rashid ame T elehealth method: T elephone only. Patient not visible to care provider. C onsent: P atient verbally consented to treatment, Patient verbally consented to billing insurance company, Patient informed of any privacy concerns related to method of visit T otal time spent with patient (mins) 1 5 * ROS: G eneral/Constitutional: pain W orsening sore throat. C hills d enies. F atigue a dmits. F ever d enies. E NT: Decreased hearing d enies. R espiratory: Cough d enies. C ardiovascular: Chest pain with exertion d enies. D yspnea on exertion?denies. S hortness of breath d enies. G astrointestinal: Constipation o ccasional. D ecreased appetite d enies. D iarrhea d enies. H e[place]burn d enies. N ausea d enies. R ectal bleeding d enies. V omiting d enies. H ematology: bruising d enies. p etechiae d enies. S wollen glands n one have been noted. G enitourinary: Frequent urination d enies. M usculoskeletal: Muscle aches d enies. P ainful joints d enies. S ciatica d enies. W eakness d enies. S kin: Itching d enies. R andrey d enies. S kin lesion(s)?denies. N eurologic: Difficulty speaking H oarseness and recent sore throat.?Dizziness d enies. H eadache d enies. L ow back pain d enies. P sychiatric: Depressed mood d enies. * Medical History: * Surgical History: r oot canal 09/2023No history * Hospitalization/Major Diagno stic Procedure: N o history * Family History: F ather: 56 yrs, lung cancer, diagnosed with Cancer. M other: alive 88 yrs, adult onset diabetes mellitus, dementia, diagnosed with DM. S iblings: . P aternal Grand Mother: adult onset diabetes mellitus. 1 brother(s) . 1 son(s) , 1 daughter(s) - healthy. .? A brother at age 57 diagnosed with melanoma. * Social History: T obacco Use: T obacco Use/Smoking P atient is a n onsmoker A dditional Findings: Tobacco Non-User A ggressive non-smoker S he was born in [place], [place]. She has one daughter. She is . * Medications: T akingFish Oil 1000 MG Capsule 1 capsule Orally Once a day Antioxidant - Capsule as directed Orally Probiotic 250 MG Capsule as directed Orally Vitamin A 2400 MCG (8000 UT) Capsule 1 capsule with food or milk Orally Once a day ZyrTEC Allergy 10 MG Tablet 1 tablet Orally Once a day Ibuprofen 200 MG Capsule 2 tablets with food or milk as needed Orally every 6 hrs Acetaminophen 325 MG Tablet 2 tablet as needed Orally every 6 hrs Estrogens, Conjugated 0.625 MG/GM Cream 1 gram Vaginal in Urethra Twice a week Red Yeast Rice 600 MG Capsule as directed Orally Magnesium 300 MG Capsule 1 capsule with a meal Orally Once a day Calcium 600 MG Tablet 1 tablet with meals Orally Twice a day Vitamin E 100 UNIT Capsule as directed Orally Vitamin C 500 MG Capsule as directed Orally Garcinia Cambogia-Chromium 500-200 MG-MCG Tablet as directed Orally traZODone HCl 100 MG Tablet TAKE 1 TABLET BY MOUTH EVERY DAY AT BEDTIME FOR 30 DAYS Taking Fish Oil 1000 MG Capsule 1 capsule Orally Once a day Taking Antioxidant - Capsule as directed Orally Taking Probiotic 250 MG Capsule as directed Orally Taking Vitamin A 2400 MCG (8000 UT) Capsule 1 capsule with food or milk Orally Once a day Taking ZyrTEC Allergy 10 MG Tablet 1 tablet Orally Once a day Taking Ibuprofen 200 MG Capsule 2 tablets with food or milk as needed Orally every 6 hrs Taking Acetaminophen 325 MG Tablet 2 tablet as needed Orally every 6 hrs Taking Estrogens, Conjugated 0.625 MG/GM Cream 1 gram Vaginal in Urethra Twice a week Taking Red Yeast Rice 600 MG Capsule as directed Orally Taking Magnesium 300 MG Capsule 1 capsule with a meal Orally Once a day Taking Calcium 600 MG Tablet 1 tablet with meals Orally Twice a day Taking Vitamin E 100 UNIT Capsule as directed Orally Taking Vitamin C 500 MG Capsule as directed Orally Taking Garcinia Cambogia-Chromium 500-200 MG-MCG Tablet as directed Orally Taking traZODone HCl 100 MG Tablet TAKE 1 TABLET BY MOUTH EVERY DAY AT BEDTIME FOR 30 DAYS * Allergies: S ulfur: nausea, headaches, stomach pain - Side EffectsAmoxicillin: diarrhea Objective: * Vitals: Assessment: * Assessment: 1. E xposure to Streptococcal pharyngitis - Z20.818 (Primary) N otes :She deeclined a prescription for amoxicillin saying it gave her diarrhea. I gave her a prescription for levofloxacin. 2 . A llergic rhinitis, seasonal - J30.2 N otes :She has begun to notice peripheral allergies. She is going to use loratadine as needed and has a nasal spray, fluticasone. 3 . T hyroid nodule - E04.1 N otes :Endocrinology has referred her to head and neck surgery for surgical consultation which will take place to room 12 2024. A needle biopsy of this area was negative. 4 . H ypothyroidism, unspecified - E03.9 N otes :Thyroid function tests have been requested. No change in her regimen was made today. She has been compliant with her replacement therapy. 5 . O verweight - E66.3 N otes :Her body mass index is 27. She has lost 1 pound. We discussed diet and nutrition. We made a plan to lose weight at a rate of one half of a pound per week. 6 . C ervical disc disorder with radiculopathy - M50.10 N otes :The pain in her neck is almost gone. Her range of motion is normal. She has no numbness or tingling in her extremities. 7 . S eizure disorder - G40.909 N otes :No further seizures have occurred in a prolonged period of time. Plan: * Treatment: 2. O thers Start levoFLOXacin Tablet, 500 MG, 1 tablet, Orally, Once a day, 10 days, 10, Refills 0. * Procedure Codes: * Preventive Medicine: Counseling: C are goal follow-up plan: Counseling for abnormal BMI given Y es Above Normal BMI Follow-up D ietary needs education * Follow Up: A s Scheduled (Reason: OV) * Images: * Sign off status: Completed true * Provider: Buster Thomas MD Date: 0 07/18/2024 Generated for Yaritza zayas/Puneet/Alizeitting on: 1 12:22 PM EDT History and Physical Notes * HPI (History of Present Illness) Category Sub-Category Detail Notes Telehealth Location of [facility] rendering services:: {...} [address] [place] [address] [place] [address] Location of patient:: address listed in demographics for today's visit Patient identification confirmed using:: Name, Telehealth method:: Telephone only. Barbie ent not visible to care provider. Consent:: Patient verbally c onsented to treatment, Patient verbally consented to billing insurance company, Patient informed of any privacy concerns related to method of visit Total time spent with patient (mins): 15
--- OUTSIDE RECORDS SUMMARY | 2024-10-10 06:26 | XMS_ITS ---
Author Organization Ej Thomas III, MD Address [address] [place] [address] Care Team Providers Care Pitch Gatherer Name Role Phone Dr. Ej Thomas III Primary Care Provider Results Component Value Reference Range Notes Urine Culture Reviewed date:10/12/2024 02:45:58 PM Interpretation: Performing Lab:[facility], [address] [place] [id number] Notes/Report: O:ESCCOL Escherichia coli Urine Culture Quant Urine Culture > 100,000 cfu/mL Ampicillin <=2 Cefazolin (Urine) <=1 Cefepime <=0.12 Ceftriaxone <=0.25 Ciprofloxacin <=0.06 Gentamicin <=1 Nitrofurantoin <=16 Trimethoprim/Sulfamethoxazole <=20 REASON FOR VISIT ? UTI Social History Sex Assigned At : Social History Observation Description Sex Assigned At Female Encounters Encounter Location Date Provider Diagnosis Ej Thomas III, MD [address] [place] [address] [place] [address] 10/10/2024 Ej Thomas Urinary tract infection, site not specified N39.0 Assessments Encounter Date Diagnosis (ICD Code) Assessment Notes Treatment Notes Treatment Clinical Notes 10/10/2024 Urinary tract infection, site not specified (ICD-10 - N39.0) Plan Of Treatment Pending Test Test Name Order Date Urinalysis 10/10/2024 Next Appt Details Provider Name:Ej Thomas , 01/26/2025 09:30:00 AM, [address] [place] [address] [place], [address], Provider Name:Ej Thomas , 10/16/2025 02:00:00 PM, [address] [place] [address] K[address], [place], [address], Progress Notes * Danielle BAÑUELOSDOB:1960 (64 yo F)Acc No.[id number]:10/10/2024 Patient: Danielle GONZALEZ :1960 A ge:64 Y S ex:Female [facility] [place] [address] Subjective: * Chief Complaints: * ? UTI * Medical History: * Surgical History: * Hospitalization/Major Diagno stic Procedure: * Medications: Objective: * Vitals: * Physical Examination: Assessment: * Assessment: 1. U rinary tract infection, site not specified - N39.0 Plan: * Treatment: * Procedure Codes: * true * Date: Generated for Yaritza zayas/Puneet/eTalfredosmitting on: 12:21 PM EDT
--- OUTSIDE RECORDS SUMMARY | 2024-10-10 07:00 | XMS_ITS ---
Author Organization Ej Thomas III, MD Address [address] [place] [address] Care Team Providers Care Gift Consultant Name Role Phone Dr. Ej Thomas III Primary Care Provider Medications Medication SIG (Take, Route, Frequency, Duration) Notes Start Date End Date Status Cephalexin 500 MG 1 capsule Orally leandra ry 6 hrs for 7 days has used in the past 10/10/2024 10/17/2024 Active Social History Sex Assigned At : Social History Observation Description Sex Assigned At Female Encounters Encounter Location Date Provider Diagnosis Ej Thomas III, MD [address] [place] [address] [place] [address] 10/10/2024 Ej Thomas Plan Of Treatment Medication Medication Name Sig Start Date Stop Date Notes Cephalexin 500 MG 1 capsule Orally leandra ry 6 hrs for 7 days 10/10/2024 10/17/2024 has used in the past Next Appt Details Provider Name:Ej Thomas , 01/26/2025 09:30:00 AM, [address] [place] [address] [place], [address], Provider Name:Ej Thomas , 10/16/2025 02:00:00 PM, [address] [place] [address] [place], [address], Progress Notes * Danielle BAÑUELOSDOB:1960 (64 yo F)Acc No.[id number]:10/10/2024 Patient: Danielle GONZALEZ :1960 A ge:64 Y S ex:Female Address: [place] [address] * Refills Start Cephalexin Capsule, 500 MG, Orally, 28 Capsule, 1 capsule, every 6 hrs, 7 days, Refills=0 * true * Date: Generated for Yaritza zayas/Puneet/Alizeitting on: 12:21 PM EDT
--- OUTSIDE RECORDS SUMMARY | 2024-10-12 10:00 | XMS_ITS ---
Author Organization jE Thomas III, MD Address [address] [place] [address] Care Team Providers Care Linotype Worker Name Role Phone Dr. Ej Thomas III [...] Provider Speciality Internal M edicine Referred Organization [facility] Referred Provider [facility] er, FIELD LABORATORY OPERATOR & Midwifery Referred Address [address] [place] [id number], Referred Provider Specialty OB - Gynecol ogy General Carmen Martinez [facility] 10/26 01:41:41 PM >ref/demo/progress note /labs faxed to Lucas WILEY Suzanne CMA 11/17/2024 02:22:41 PM > Called Burak WILEY [phone] spoke to Ana she stated pt has [...] 100 MG TAKE 1 TABLET BY [facility] EVERY DAY AT BEDTIME FOR 30 DAYS [...] nonsmoker Additional Findings: Tobacco Non-User Aggressive non-smoker Vital Signs Temperature 97.2 degrees Fahrenheit 10/13/19 25 Blood pressure systolic 136 mm Hg 10/13/19 25 Blood pressure diastolic 79 mm Hg 025 Heart Rate 82 /min 10/12/2024 Height 61 in 10/12/2024 Weight 149 lbs 10/12/2024 BMI 28.15 kg/m2 10/12/2024 Encounters Encounter Location Date Provider Diagnosis Ej Thomas III, MD [address] [place] [address] [place] [address] 10/12/2024 Ej Thomas Overweight E66.3 ; Thyroid [...] She is under the care of her customer solutions coordinator. She has had no vaginal bleeding. She [...] 100 MG TAKE 1 TABLET BY [facility] EVERY DAY AT BEDTIME FOR 30 DAYS [...] and treatment yearly pelvic and pap smear, FIELD LABORATORY OPERATOR & Midwifery [facility], [address] [place] [address], [place], [place], [phone], Next Appt Details Follow Up: 3 Months, Reason: ov review labs Provider Name:Ej Thomas , 01/26/2025 09:30:00 AM, [address] [place] [address] [address], [place], [address], Provider Name:Ej Thomas , 10/16/2025 02:00:00 PM, [address] [place] [address] K[address]ASSO, [place], [address], Progress Notes * Juan CHAPMAN:1960 (64 yo F)Acc No.[id number]:10/12/2024 Progress Notes Patient: Danielle GONZALEZ Provider: Buster Thomas MD :1960 A ge:64 Y S ex:Female Date:10/12/2024 Address:[place], [id number] Subjective: * Chief Complaints: * A nnual exam * HPI: D epression Screening: She returns at the age of 64 for her annual physical examination. A recent urinary tract infection has been successfully treated with cephalexin. She is on a new Yoruba diet to lose weight. She has seen an ENT surgeon about her thyroid and a hemithyroidectomy is planned for February 2025. It is thought to be enlarged lobe of the thyroid is causing the difficulty she has with singing in her jew choir. Otherwise she seems healthy and well. [...] ggressive non-smoker S he was born in [place], [place]. She has one daughter. She is [...] Wt-k.58. * P ast Orders: L ab:Comprehensive [place]. Panel Fast (Order Date - 10/10/2024) (Collection [...] - mg/dL L ab:Urine Culture (Order Date 10/10/2024) (Collection Date & Time - 10/10/2024 [...] Blood Small (1+) A Negative - Specific [place] - Urine <= 1.005 1.005-1.025 - Urine [...] Examination: G eneral Examination: GENERAL APPEARANCE: p leasant, well nourished, well developed, in no acute [...] :She is under the care of her customer solutions coordinator. She has had no vaginal bleeding. She [...] 30 DAYS. ? Referral To:[facility] OB - Gynecology Reason:evaluate and treatment yearly [...] 0 10/12/2024 Generated for Yaritza zayas/Puneet/Alizeitting on: 12:22 PM EDT History and Physical Notes [...] Referral Date Referring Provider Referred Provider Not sarah 10/12/2024 [facility], FIELD LABORATORY OPERATOR & Midwifery evaluate and treatment yearly pelvic and pap smear
--- OUTSIDE RECORDS SUMMARY | 2024-12-06 10:58 | XMS_ITS ---
Author Organization Ej Thomas III, MD Address [address] [place] [address] Care Team Providers Care Will Call Order Clerk Name Role Phone Dr. Ej Thomas III Primary Care Provider REASON FOR VISIT UTI Rx Request Social History Sex Assigned At : Social History Observation Description Sex Assigned At Female Encounters Encounter Location Date Provider Diagnosis Ej Thomas III, MD [address] [place] [address] [place] [address] 12/06/2024 Ej Thomas Plan Of Treatment Next Appt Details Provider Name:Ej Thomas , 01/26/2025 09:30:00 AM, [address] [place] [address] [place], [address], Provider Name:Ej Thomas , 10/16/2025 02:00:00 PM, [address] [place] [address] [place], [address], Progress Notes * DURGADanielle BROCKDOB:1960 (64 yo F)Acc No.[id number]:12/06/2024 Patient: Danielle GONZALEZ :1960 A ge:64 Y S ex:Female Address: [place] [address] * true * Date: Generated for Printi ng/Faxing/eTransmitting on: 1 12:22 PM EDT
--- OUTSIDE RECORDS SUMMARY | 2024-12-06 11:13 | XMS_ITS ---
Author Organization Ej Thomas III, MD Address [address] [place] [place] [address] Care Team Providers Care Station Agent Name Role Phone Dr. Ej Thomas III [...] Date Provider Diagnosis Ej Thomas III, MD [address] [place] [address] [place] [address] 12/06/2024 Ej Thomas Plan Of Treatment Medication Medication Name Sig Start Date Stop Date Notes Nitrofurantoin Monohyd Macro 100 MG 1 capsule with food Orally every 12 hrs for 7 days 12/06/2024 12/13/2024 Next Appt Details Provider Name:Ej Thomas , 01/26/2025 09:30:00 AM, [address] [place] [address] [place], [address], Provider Name:Ej Thomas , 10/16/2025 02:00:00 PM, [address] [place] [address] [place], [address], Progress Notes * Danielle BAÑUELOSDOB:1960 (64 yo F)Acc No.[id number]:12/06/2024 Patient: Danielle GONZALEZ :1960 A ge:64 Y S ex:Female Address: [place] [address] * Refills Start Nitrofurantoin Monohyd Macro Capsule, 100 MG, Orally, 14 Capsule, 1 capsule with food, every 12 hrs, 7 days, Refills=0 * true * Date: Generated for Yaritza zayas/Puneet/Alizeitting on: 12:22 PM EDT
--- OUTSIDE RECORDS SUMMARY | 2025-01-11 09:00 | XMS_ITS ---
Author Organization Ej Thomas III, MD Address [address] [place] [address] Care Team Providers Care Sensor Operator Name Role Phone Dr. Ej Thomas III Primary Care Provider Allergies Allergen (clinical drug ingredient) Drug/Non Drug Allergy documented on EMR Reaction Allergy Type Onset Date Status amoxicillin Amoxicillin diarrhea Drug Allergy Act emanuel Sulfur nausea, headaches, stomach pain Drug Allergy Active Reason For Referral Reason Urgent Evaluate and Treat Right Hip Pain Diagnosis 1 Right hip pain (M25. 551) Referral Organization Ej Thomas III, MD Referring Provider First Name Ej Referring Provider Last Name William Referring Provider Speciality Internal M edicine Referred Provider Omayra Rodriguez [facility] Referred Provider Specialty Physical Med icine and Rehabilitation General Notes D Wendi 01/13/2025 11:27:18 AM > patient was able to be scheduled and will need the referral faxed to [phone], Wendi Loera 01/16/2025 09:59:20 AM > Referral and progress note was faxed to number provided by patient. Referral Priority Routine Referral Appointment Date 01/19/2025 REASON FOR VISIT right hip pain, seizures, neck pain, hypothyroid, hyperlipidemia Medications Medication SIG (Take, Route, Frequency, Duration) Notes Start Date End Date Status Red Yeast Rice 600 MG as directed Orally Active Acetaminophen 325 MG 2 tablet as needed Orally every 6 hrs 03/04/2018 Active Estrogens, Conjugated 0.625 MG/GM 1 gram Vaginal in Urethra Twice a week Active ZyrTEC Allergy 10 MG 1 tablet Orally Onc e a day 03/04/2018 Active Ibuprofen 200 MG 2 tablets with food or milk as needed Orally every 6 hrs 03/04/2018 Active Antioxidant - as directed Orally Active Fish Oil 1000 MG 1 capsule Orally Onc e a day Active Omeprazole 20 MG 1 capsule 1/2 to 1 h our before morning meal Orally Once a day 10/12/2024 Active Probiotic 250 MG as directed Orally Active Vitamin A 2400 MCG (8000 UT) 1 capsule w ith food or milk Orally Once a day Active Vitamin E 100 UNIT as directed Orally Active Vitamin C 500 MG as directed Orally Active Calcium 600 MG 1 tablet with meals Orally Twice a day Active Garcinia Cambogia-Chromium 500-200 MG-MCG as directed Orally Active traZODone HCl 100 MG TAKE 1 TABLET BY MO UT EVERY DAY AT BEDTIME FOR 30 DAYS [...] Problem Status W/U Status Risk Notes Problem [id number] Abnormal liver function tests (R94.5) Active confirmed The elevations are new and the cause is unclear although it may be due to the cholesterol or her recent diet. She declined a statin drug. The values will be repeated in the near future to see if they are resolving. If they do not resolve diagnostic efforts will be made aggressively. Problem [id number] Overweight (E66.3) Active confirmed She has gained 2 pounds and remains overweight. Her body mass index is 28. We discussed diet and nutrition and made a plan to lose weight at a rate of one half of a pound per week. Vital Signs Temperature 98.1 degrees Fahrenheit 01/12/20 25 Blood pressure systolic 130 mm Hg 01/12/20 25 Blood pressure diastolic 80 mm Hg 025 Heart Rate 87 /min 01/11/2025 Height 61 in 01/11/2025 Weight 151 lbs 01/11/2025 BMI 28.53 kg/m2 01/11/2025 Encounters Encounter Location Date Provider Diagnosis Ej Thomas III, MD [address] [place] [address] [address] [place], [place] [id number] 01/11/2025 Ej Thomas Overweight E66.3 ; Abnormal liver function tests R94.5 ; Allergic rhinitis, seasonal J30.2 ; Seizure disorder G40.909 ; Cervical disc disorder with radiculopathy M50.10 and Hyperlipidemia, unspecified E78.5 Assessments Encounter Date Diagnosis (ICD Code) Assessment Notes Treat ment Notes Treatment Clinical Notes 01/11/2025 Overweight (ICD-10 - E66.3) She has gained 2 pounds and remains overweight. Her body mass index is 28. We discussed diet and nutrition and made a plan to lose weight at a rate of one half of a pound per week. 01/11/2025 Abnormal liver function tests (ICD-10 - R94.5) The elevations are new and the cause is unclear although it may be due to the cholesterol or her recent diet. She declined a statin drug. The values will be repeated in the near future to see if they are resolving. If they do not resolve diagnostic efforts will be made aggressively. 01/11/2025 Allergic rhinitis, seasonal (ICD-10 - J30.2) She has begun to notice peripheral allergies. She is going to use loratadine as needed and has a nasal spray, fluticasone. 01/11/2025 Seizure disorder (ICD-10 - G40.909) No further seizures have occurred in a prolonged period of time. 01/11/2025 Cervical disc disorder with radiculopathy (ICD-10 - M50.10) The pain in her neck is almost gone. Her range of motion is normal. She has no numbness or tingling in her extremities. 01/11/2025 Hyperlipidemia, unspecified (ICD-10 - E78.5) The current lipid profile shows her cholesterol values to be 242 but the triglycerides are slightly elevated. I recommended a healthy, low animal fat diet with regular exercise and aggressive weight loss. No change in her medications was necessary.She does not wish to take Plan Of Treatment Medication Medication Name Sig Start Date Stop Date Notes Red Yeast Rice 600 MG as directed Orally Acetaminophen 325 MG 2 tablet as needed Orally every 6 hrs 03/04/2018 Estrogens, Conjugated 0.625 MG/GM 1 gram Vaginal in Urethra Twice a week ZyrTEC Allergy 10 MG 1 tablet Orally Once a day 03/04/2018 Ibuprofen 200 MG 2 tablets with food or milk as needed Orally every 6 hrs 03/04/2018 Antioxidant - as directed Orally Fish Oil 1000 MG 1 capsule Orally Onc e a day Omeprazole 20 MG 1 capsule 1/2 to 1 h our before morning meal Orally Once a day 10/12/2024 Probiotic 250 MG as directed Orally Vitamin A 2400 MCG (8000 UT) 1 capsule w ith food or milk Orally Once a day Vitamin E 100 UNIT as directed Orally Vitamin C 500 MG as directed Orally Calcium 600 MG 1 tablet with meals Orally Twice a day Garcinia Cambogia-Chromium 500-200 MG-MCG as directed Orally traZODone HCl 100 MG TAKE 1 TABLET BY [facility] EVERY DAY AT BEDTIME FOR 30 DAYS Magnesium 300 MG 1 capsule with a neno l Orally Once a day Pending Test Test Name Order Date PROFILE, FASTING (COMPREHENSIVE METABOLI C) 01/11/2025 GGT 01/11/2025 Lipid Panel 01/11/2025 Referrals Referral Date Details 01/11/2025 01/11/2025, Urgent E valuate and Treat Right Hip Pain, Rehabilitation Services Ar[facility] Squires Appt Details Follow Up: 2 Weeks, Reason: OV Provider Name:Ej Thomas , 01/26/2025 09:30:00 AM, [address] [place] [address] [address], [place], [address], Provider Name:Ej Thomas , 10/16/2025 02:00:00 PM, [address] [place] [address] [address], [place], [phone], Progress Notes * Danielle BAÑUELOSDOB:1960 (64 yo F)Acc No.[id number]:01/11/2025 Progress Notes Patient: Danielle GONZALEZ Provider: Buster Thomas MD :1960 A ge:64 Y S ex:Female Date:01/11/2025 Address: [id number] Subjective: * Chief Complaints: * R ight hip painSeizuresNeck painHypothyroidHyperlipidemia * HPI: v : S he returns to the office for a scheduled visit for medical management. Comprehensive blood work is available and was unremarkable except for an AST of 61, ALP 163 and a total cholesterol of 265. The elevated enzymes are new. We had a long talk about her lipids which have been elevated and she once again declined a trial of statin medication.She is aware of the risks of elevated lipids pros for stroke and heart attack. She has a new pain in her right lower back which radiates into her groin. It is primarily with standing and walking and not with lying and sitting. She has been exercising vigorously at a gym 6 days a week. Examination of the hip joint showed it was pain free range of motion. This appears to be muscle pain. She will rest and use a heating pad and ibuprofen. Images will be obtained if the pain does not resolve. She was also referred to physical therapy. * ROS: G eneral/Constitutional: pain R ight low back and right groin for week. C hills?denies. F atigue a dmits. F ever d enies. E NT: Decreased hearing d enies. R espiratory: Cough d enies. C ardiovascular: Chest pain with exertion d enies. D yspnea on exertion?denies. S hortness of breath d enies. G astrointestinal: Constipation d enies. D ecreased appetite d enies.?Diarrhea d enies. H eartburn d enies. N ausea d enies. R ectal bleeding?denies. V omiting d enies. H ematology: bruising d enies. p etechiae d enies. S wollen glands n one have been noted. G enitourinary: Frequent urination d enies. M usculoskeletal: Muscle aches R ight lower back and right groin. P ainful joints d enies. S ciatica d enies. W eakness d enies. S kin: Itching d enies. R andrey d enies. S kin lesion(s)?denies. N eurologic: Difficulty speaking d enies. D izziness d enies.?Headache d enies. L ow back pain d [...] ggressive non-smoker S he was born in [place], [place]. She has one daughter. She is [...] EVERY DAY AT BEDTIME FOR 30 DAYS Omeprazole 20 MG Capsule Delayed Release 1 capsule 1/2 to 1 hour before morning meal Orally Once a day Medication List reviewed and reconciled with the patientTaking Fish Oil 1000 MG Capsule 1 capsule [...] before morning meal Orally Once a day Medication List reviewed and reconciled with the patient * Allergies: S ulfur: nausea, headaches, stomach pain - Side EffectsAmoxicillin: diarrheano[Allergies Verified] Objective: * Vitals: H t: 61, Wt:151, BMI:28.53, BP:130/80, HR:87, Temp:98.1, Wt-k.49. * P ast Orders: Lab:Complete Blood Count Aut o Diff * Collection Date 01/10/2025 10/10/2024 Collection Time 09:48 AM 01:01 PM Order Date 01/10/2025 10/10/2024 White Blood Count 5.5 (Ref Range: 4.8-10.8 X10*3/uL) 10.6 (Ref Range: 4.8-10.8 X10*3/uL) Red Blood Count 4.79 (Ref Range: 4.20-5.50 X10*6/uL) 4.84 (Ref Range: 4.20-5.50 X10*6/uL) Hemoglobin 15.0 (Ref Range: 12.0-16.0 g/dl) 14.7 (Ref Range: 12.0-16.0 g/dl) Hematocrit 43.8 (Ref Range: 37.0-47.0 %) 42.8 (Ref Range: 37.0-47.0 %) Mean Corpuscular Volume 91.4 (Ref Range: 80.0-98.0 fL) 88.4 (Ref Range: 80.0-98.0 fL) Mean Corpuscular Hemoglobin 31.3 (Ref Range: 27.0-33.0 pg) 30.4 (Ref Range: 27.0-33.0 pg) Mean Corpuscular HGB Conc 34.2 (Ref Range: 31.0-35.0 g/dl) 34.3 (Ref Range: 31.0-35.0 g/dl) Red Cell Distribution Width 13.0 (Ref Range: 11.0-16.0 %) 12.6 (Ref Range: 11.0-16.0 %) Platelet Count 243 (Ref Range: 160-400 X10*3/uL) 244 (Ref Range: 160-400 X10*3/uL) Mean Platelet Volume 10.1 (Ref Range: 9.4-12.3 fL) 10.1 (Ref Range: 9.4-12.3 fL) Neutrophils Percent Auto 54.8 (Ref Range: 45-73 %) 75.4 H (Ref Range: 45-73 %) Imm Gran Pct Auto 0.4 (Ref Range: 0.0-0.4 %) 0.4 (Ref Range: 0.0-0.4 %) Lymphocytes Percent Auto 31.3 (Ref Range: 20-40 %) 15.6 L (Ref Range: 20-40 %) Monocytes Percent Auto 11.9 H (Ref Range: 2-11 %) 8.1 (Ref Range: 2-11 %) Eosinophils Percent Auto 1.1 (Ref Range: 0-4 %) 0.2 (Ref Range: 0-4 %) Basophils Percent Auto 0.5 (Ref Range: 0-2 %) 0.3 (Ref Range: 0-2 %) NRBC Pct Auto 0.0 (Ref Range: 0.0-0.2 /100WBC) 0.0 (Ref Range: 0.0-0.2 /100WBC) Neutrophils Absolute Auto 3.0 (Ref Range: 2.0-8.3 x10*3/uL) 8.0 (Ref Range: 2.0-8.3 x10*3/uL) Imm Gran Abs Auto 0.02 (Ref Range: 0.00-0.03 X10*3/uL) 0.04 H (Ref Range: 0.00-0.03 X10*3/uL) Lymphocytes Absolute Auto 1.7 (Ref Range: 1.2-4.9 X10*3/uL) 1.7 (Ref Range: 1.2-4.9 X10*3/uL) Monocytes Absolute Auto 0.7 (Ref Range: 0.1-1.2 X10*3/uL) 0.9 (Ref Range: 0.1-1.2 X10*3/uL) Eosinophils Absolute Auto 0.1 (Ref Range: 0.0-0.4 X10*3/uL) 0.0 (Ref Range: 0.0-0.4 X10*3/uL) Basophils Absolute Auto 0.0 (Ref Range: 0.0-0.2 X10*3/uL) 0.0 (Ref Range: 0.0-0.2 X10*3/uL) NRBC Abs Auto 0.000 (Ref Range: 0.0-0.012 X10*3/uL) 0.000 (Ref Range: 0.0-0.012 X10*3/uL) * Lab:Comprehensive [place]. Riri l Fast * Collection Date 01/10/2025 10/10/2024 Collection Time 09:48 AM 01:01 PM Order Date 01/10/2025 10/10/2024 Sodium 141 (Ref Range: 135-145 mmol/L) 137 (Ref Range: 135-145 mmol/L) Bilirubin Total 0.4 (Ref Range: 0.0-1.0 mg/dL) 0.5 (Ref Range: 0.0-1.0 mg/dL) Aspartate Amino Transferase 61 H (Ref Range: 5-31 U/L) 29 (Ref Range: 5-31 U/L) Alanine Aminotransferase 163 H (Ref Range: 0-31 U/L) 32 H (Ref Range: 0-31 U/L) Total Protein 7.0 (Ref Range: 6.5-8.0 g/dL) 7.2 (Ref Range: 6.5-8.0 g/dL) Albumin Level 4.6 (Ref Range: 3.5-5.0 g/dL) 4.6 (Ref Range: 3.5-5.0 g/dL) Alkaline Phosphatase 93 (Ref Range: 39-117 U/L) 80 (Ref Range: 39-117 U/L) Potassium 4.7 (Ref Range: 3.3-5.1 mmol/L) 4.4 (Ref Range: 3.3-5.1 mmol/L) Chloride 106 (Ref Range: 96-108 mmol/L) 106 (Ref Range: 96-108 mmol/L) Carbon Dioxide 28 (Ref Range: 22-29 mmol/L) 24 (Ref Range: 22-29 mmol/L) Anion Gap 12 (Ref Range: 12-20) 11 L (Ref Range: 12-20) Blood Urea Nitrogen 21 H (Ref Range: 9-16 mg/dL) 14 (Ref Range: 9-16 mg/dL) Creatinine 0.76 (Ref Range: 0.5-1.4 mg/dL) 0.66 (Ref Range: 0.5-1.4 mg/dL) Estimated Glomerular Filt Rate > 60 > 60 Glucose Fasting 110 H (Ref Range: 60-99 mg/dL) 114 H (Ref Range: 60-99 mg/dL) Calcium 9.6 (Ref Range: 8.4-10.2 mg/dL) 9.3 (Ref Range: 8.4-10.2 mg/dL) * Lab:Lipid Panel * Collection Date 01/10/2025 10/10/2024 Collection Time 09:48 AM 01:01 PM Order Date 01/10/2025 10/10/2024 Triglycerides 246 H (Ref Range: <150 mg/dL) 161 H (Ref Range: <150 mg/dL) Cholesterol 265 H (Ref Range: <200 mg/dL) 242 H (Ref Range: <200 mg/dL) LDL Cholesterol Calculated 157 H (Ref Range: <100 mg/dL) 156 H (Ref Range: <100 mg/dL) HDL Cholesterol 59 (Ref Range: >40 mg/dL) 54 (Ref Range: >40 mg/dL) ???Imaging:XR DEXA axial skeleton (Order Date - 12/20/2024) (Performed Date - 12/20/2024) * Examination: G eneral Examination: GENERAL APPEARANCE: p leasant, well nourished, well developed, in no acute distress, calm and relaxed: overweight: woman. HEAD: a traumatic, normocephalic. EYES: e mahesh, perrla, anicteric, conjugate. EARS: n ormal. NOSE: s eptum intact. ORAL CAVITY: n ormal, unremarkable. NECK/THYROID: n o jugular venous distention, no carotid bruit, thyroid normal. LYMPH NODES: n o enlarged lymph nodes,spleen normal. SKIN: n o suspicious lesions, anicteric. HEART: n o clicks, gallops, murmurs, or rubs, regular rhythm, S1, S2 normal, no s3, or vascular bruits. LUNGS: c lear to auscultation . BREASTS: N ot examined. ABDOMEN: b owel sounds normal, no ascites, no organomegaly, no mass: overweight. RECTAL EXAM: n ot examined. MUSCULOSKELETAL: e xtremities unremarkable, no clubbing, cyanosis or edema, Range of motion right hip is free of pain, palpation of the gluteal muscles is painful.. PERIPHERAL PULSES: n ormal. NEUROLOGIC: a lert and oriented, cranial nerves 2-12 grossly intact, deep tendon reflexes 2+ symmetrical, motor strength normal upper and lower extremities, sensory exam intact. PSYCH: a lert, oriented. Assessment: * Assessment: 1. A bnormal liver function tests - R94.5 (Primary) N otes :The elevations are new and the cause is unclear although it may be due to the cholesterol or her recent diet. She declined a statin drug. The values will be repeated in the near future to see if they are resolving. If they do not resolve diagnostic efforts will be made aggressively. 2 . O verweight - E66.3 N otes :She has gained 2 pounds and remains overweight. Her body mass index is 28. We discussed diet and nutrition and made a plan to lose weight at a rate of one half of a pound per week. 3 . A llergic rhinitis, seasonal - J30.2 N otes :She has begun to notice peripheral allergies. She is going to use loratadine as needed and has a nasal spray, fluticasone. 4 . S eizure disorder - G40.909 N otes :No further seizures have occurred in a prolonged period of time. 5 . C ervical disc disorder with radiculopathy - M50.10 N otes :The pain in her neck is almost gone. Her range of motion is normal. She has no numbness or tingling in her extremities. 6 . H yperlipidemia, unspecified - E78.5 N otes [...] AB: PROFILE, FASTING (COMPREHENSIVE METABOLIC) L AB: GGT L AB: Lipid Panel 3. O thers Continue Fish Oil Capsule, 1000 [...] MOUTH EVERY DAY AT BEDTIME FOR 30 DAYS; C ontinue Omeprazole Capsule Delayed Release, 20 MG, 1 capsule 1/2 to 1 hour before morning meal, Orally, Once a day. Referral To:Rehabilitation Services [facility] Physical Medicine and Rehabilitation Reason:Urgent Evaluate and Treat Right Hip Pain * Procedure Codes: * Preventive Medicine: Counseling: C are goal follow-up plan: Counseling for abnormal BMI given Y es Above Normal BMI Follow-up D ietary management education, guidance, and counseling * Follow Up: 2 Weeks (Reason: OV) * Images: * Sign off status: Completed true * Provider: Buster Thomas MD Date: Generated for Yaritza zayas/Puneet/Fransisco on: 12:21 PM EDT History and Physical Notes * Examination Category Sub-Category Detail Notes General Examination GENERAL APPEARANCE: pleasant , well nourished, well developed, in no acute distress, calm and relaxed: overweight: woman HEAD: atraumatic, normocep halic EYES: eomi, perrla, anicte mayra, conjugate EARS: normal NOSE: septum intact NECK/THYROID: no jugular venous di stention, no carotid bruit, thyroid normal HEART: no clicks, gallops, murmurs, or rubs, regular rhythm, S1, S2 normal, no s3, or vascular bruits LUNGS: clear to auscultatio n ABDOMEN: bowel sounds normal, no ascites, no organomegaly, no mass: overweight NEUROLOGIC: alert and oriented, cranial nerves 2-12 grossly intact, deep tendon reflexes 2+ symmetrical, motor strength normal upper and lower extremities, sensory exam intact SKIN: no suspicious lesion s, anicteric PERIPHERAL PULSES: normal BREASTS: Not examined MUSCULOSKELETAL: extremities unremark able, no clubbing, cyanosis or edema, Range of motion right hip is free of pain, palpation of the gluteal muscles is painful. LYMPH NODES: no enlarged lymph no ilene,spleen normal RECTAL EXAM: not examined PSYCH: alert, oriented ORAL CAVITY: normal, unremarkable Consultation Request Notes Referral Date Referring Provider Referred Provider Not sarah 01/11/2025 Ej Thomas , Rehabilitation Services Urgent Evaluate and Treat Right Hip Pain
[2025-01-24 11:12] LABS: Alanine Aminotransferase 31 U/L (0-31); Albumin Level 4.7 g/dL (3.5-5.0); Alkaline Phosphatase 70 U/L (39-117); Anion Gap 12 (12-20); Aspartate Amino Transferase 26 U/L (5-31); Blood Urea Nitrogen 15 mg/dL (9-16); Calcium 9.1 mg/dL (8.4-10.2); Carbon Dioxide 27 mmol/L (22-29); Chloride 105 mmol/L (96-108); Cholesterol 230 mg/dL (<200); Estimated Glomerular Filt Rate > 60; Gamma Glutamyl Transpeptidase 114 U/L (7-33); HDL Cholesterol 52 mg/dL (>40); Potassium 4.1 mmol/L (3.3-5.1); Sodium 140 mmol/L (135-145); Total Protein 7.1 g/dL (6.5-8.0); Triglycerides 192 mg/dL (<150)
--- OUTSIDE RECORDS SUMMARY | 2025-01-24 12:21 | XMS_ITS | Clinical Summary ---
Author Organization [facility] [address] [place] [address] Address [address] [place] [address] Phone Care Team Providers Care Nitrocellulose Operator Name Role Phone Ale Thomas MD Primary Care Provider [phone] Allergies Active Allergy Reactions Criticality Noted Date [...] Active ZINC ORAL 15 mg Active omega 3-zal-fou-fish oil (Fish OiL) 1,000 (120-180) mg capsule 1 capsule (1,000 mg total) 1 (one) time each day at the same time. Active red yeast rice 600 mg capsule as directed Orally Active saccharomyces boulardii (FLORASTOR) 250 mg capsule as directed Orally Active Surgical History Surgery Date Site/Laterality Comments ABDOMINAL SURGERY PROCEDURE: CA UNLISTED PROCEDURE ABDOMEN PERITONEUM & OMENTUM; COMMENT: [...] LAB CHEMISTRY METHOD 03/08/2024 4:[address] [facility] Triglycerides 206(H) 0 - 150 mg/dL LAB CHEMISTRY METHOD 03/08/2024 4:[address] [facility] HDL 64 >=40 mg/dL LAB CHEMISTRY METHOD 03/08/2024 4:[address] [facility] LDL Calculated 145(H) 0 - 100 mg/dL LAB CHEMISTRY METHOD 03/08/2024 4:[address] [facility] VLDL Cholesterol Vidal 41.2 mg/dL LAB CHEMISTRY METHOD 03/08/2024 4:[address] [facility] Non HDL Chol. (LDL+VLDL) 186(H) <145 mg/dL LAB CHEMISTRY METHOD 03/08/2024 4:[address] [facility] Chol/HDL Ratio 3.9 0.0 - 4.4 LAB CHEMISTRY METHOD 03/08/2024 4:[address] [facility] Blood Venous blood specimen / Unknown Venipuncture / Unknown 03/08/2024 12:30 PM EST 03/08/2024 1:33 PM EST us Ale Thomas MD LAB BLOOD ORDERABLES Final Res ult [facility] [address] [place] [address], * [facility] SCREENING DIGITAL (12/15/2023 3:45 PM EDT) Anatomical Region Laterality Modality Mammography 12/15/2023 2:56 PM EDT Narrative 12/15/2023 3:45 PM EDT [facility] Diagnostic Imaging Department [address] [place] [address] Patient: ADELAARTIS Angeles./Age/Sex: 1960 - 63 - F Unit#: [id number] Location/Status: [facility] CLI Mnemonic/Ordering Site: [facility] Ordering Physician: ALE THOMAS MD [facility] Screening Digital - 12/15/23 - 1521 Report Status:Signed EXAM: [facility] Screening Digital EXAM DATE AND TIME: 12/15/2023 3:21 PM HISTORY: Screening. COMPARISON: 05/10/20, 09/20/18, 03/17/17 TECHNIQUE: Bilateral digital breast tomosynthesis was performed in the CC and MLO projections. Computer aided detection with Allocade 3D 3.1 was employed. TISSUE DENSITY: b. [...] Mammogram performed at [facility] [address] [place] [address] Dictating Physician: SOSA BONE MD Electronically Signed by: SOSA BONE MD Dic Date/Time: 12/15/231543 Sign date/Time: 12/15/23 1545 Procedure Note Sosa Bone MD - 01/13/2024 [facility] Diagnostic Imaging Department [address] [place] [address] Patient: ADELAARTIS./Age/Sex: 1960 - 63 - F Unit#: [id number] Location/Status: [facility] Mnemonic/Ordering Site: [facility] Ordering Physician: ALE THOMAS MD [facility] Screening Digital - 12/15/23 - 1521 Report Status:Signed EXAM: [facility] Screening Digital EXAM DATE AND TIME: 12/15/2023 3:21 PM HISTORY: Screening. COMPARISON: 05/10/20, 09/20/18, 03/17/17 TECHNIQUE: Bilateral digital breast tomosynthesis was performed in the CCand MLO projections. Computer aided detection with Allocade 3D 3.1was employed. TISSUE DENSITY: b. There [...] Mammogram performed at [facility] [place] [address] Dictating Physician: SOSA BONE MD Electronically Signed by: SOSA BONE MD Dic Date/Time: 12/15/231543 Sign date/Time: 12/15/231544 Ale Thomas MD IMG BI PROCEDURES Final Result * Cervical Cancer Screening: HPV (12/13/2019) Cervical Cancer Screening: HPV negative,a bstracted us Historical Provider HEALTH MAINTENANCE Final Result from Last 3 Months or Most Recently Relevant to Health Maintenance Insurance [employer] Care Teams Nitrocellulose Operator Relationship Specialty Start Date End Date Ale Thomas MD [address] [place] [id number] PCP - General Oncology 02/09/24
--- OUTSIDE RECORDS SUMMARY | 2025-01-24 12:21 | XMS_ITS | Patient Health Record ---
Author Organization Ej Thomas III, MD Address [address] [place] [address] Care Team Providers Care Technical Information Specialist Name Role Phone Dr. Ej Thomas III Primary Care Provider [phone] Allergies Allergen (clinical drug ingredient) Drug/Non Drug [...] Culture Reviewed date:10/12/2024 02:45:58 PM Interpretation: Performing Lab:[facility], [address] [place] [phone] Notes/Report: O:ESCCOL Escherichia coli Urine Culture Quant Urine Culture > 100,000 cfu/mL Ampicillin <=2 Cefazolin (Urine) <=1 Cefepime <=0.12 Ceftriaxone <=0.25 Ciprofloxacin <=0.06 Gentamicin <=1 Nitrofurantoin <=16 Trimethoprim/Sulfamethoxa zole <=20 Complete Blood Count Auto Di ff Reviewed date:10/12/2024 02:45:59 PM Interpretation: Performing Lab:[facility], [address] [place] [phone] Notes/Report: White Blood Count 10.6 4.8-10.8 X10*3/uL [...] Microscopic Reviewed date:10/12/2024 02:45:59 PM Interpretation: Performing Lab:[facility], [address] [place] [phone] Notes/Report: Color Urine Yellow Appearance Urine Clear PH 6.5 5.0-9.0 Glucose Urine UA Negative Negative mg/dL Urine Blood Small (1+) Negative Specific Thurman - Urine <= 1.005 1.005-1.025 Urine Protein Negative Neg-Trace mg/dL Urine Ketones Negative Negative mg/dL Nitrite Urine Negative Negative Leukocyte Esterase Urine Large (3+) Negative RBC Urine 0-2 0-2 /HPF WBC Urine >50 0-5 /HPF WBC Clumps Urine Present Squamous Epithelial Cell Urine 0-2 0-2 /HPF Bacteria Urine 4+ None Seen Hyaline Casts Urine 0-2 0-2 /LPF [facility] [place]. Panel Fa st Reviewed date:10/12/2024 02:45:59 PM Interpretation: Performing Lab:[facility], [address] [place] [phone] Notes/Report: Sodium 137 135-145 mmol/L Potassium 4.4 [...] Panel Reviewed date:10/12/2024 02:45:59 PM Interpretation: Performing Lab:[facility], [address] [place] [phone] Notes/Report: Triglycerides 161 <150 mg/dL Desirable Triglyceride: [...] Antibody Reviewed date:10/14/2024 12:12:09 PM Interpretation: Performing Lab:[facility], [address] [place] [phone] Notes/Report: Varicella IgG Antibody 6.61 Signal to [...] Screen, ACIF. THIS TEST WAS PERFORMED AT: [facility] [address] [id number] DOUGLAS ACE MD XR DEXA axial skeleton Reviewed date:01/11/2025 01:09:01 PM Interpretation: Performing Lab: Notes/Report: [address] [place] [address] Mammography Report Signed Patient: Danielle Bañuelos MR#: [id number] 7 : 1960 Acct:[id number] Age/Sex: 64 / F ADM Date: 12/20/24 Loc: HO.MAMMO Attending Dr: Ej Thomas MD Ordering Physician: Ej Thomas MD Results: Date of Service: 12/20/24 Follow Up: Procedure(s): XR DEXA axial skeleton Accession Number(s): [id number] cc: Ej Thomas MD Reason For Exam: M81.0 : Age-related osteoporosis STUDY: DUAL ENERGY X-RAY ABSORPTIOMETRY / DXA REASON FOR EXAM: Female, 64 years old M81.0 : Age-related osteoporosis TECHNIQUE: Bone Mineral Density (BMD) measurements of the lumbar spine and left hip were obtained using Med Access COMPARISON: None FINDINGS: L1-L4 BMD: 1.170 g/cm2 [...] OV> 12/21/24 0738 DD/ 5 TD/TT: 12/20/24904 Returned Goods Receiving Clerk: [facility] [address] [place] [address] Mammography Report Signed Patient: Addis Bañuelos MR#: [id number] 7 : 1960 Acct:[id number] Age/Sex: 64 / F ADM Date: 12/20/24 Loc: HO.KALEO Attending Dr: Ej Thomas MD Ordering Physician: Ej Thomas MD Results: Date of Service: 12/20/24 Follow Up: Procedure(s): XR DEX A axial skeleton Accession Number(s): [id number] cc: Ej Thomas MD Reason For Exam: M81 .0 : Age-related osteoporosis STUDY: DUAL ENERGY X-RAY ABSORPTIOMETRY / DXA REASON FOR EXAM: Female, 64 years old M81.0 : Age-related osteoporosis TECHNIQUE: Bone Mineral Density (BMD) measurements of the lumbar spine and left hip were obtained using [employer] COMPARISON: None __ FINDINGS: L1-L4 BMD: 1.170 [...] OV> 12/21/24 0738 DD/ 5 TD/TT: 12/20/24 0905 Returned Goods Receiving Clerk: Complete Blood Count Auto Di ff Reviewed date:01/11/2025 01:09:01 PM Interpretation: Performing Lab:[facility], [address] [place] [phone] Notes/Report: White Blood Count 5.5 4.8-10.8 X10*3/uL [...] X10*3/uL NRBC Abs Auto 0.000 0.0-0.012 X10*3/uL [facility] [place]. Panel Fa st Reviewed date:01/11/2025 01:09:01 PM Interpretation: Performing Lab:[facility], [address] [place] [phone] Notes/Report: Sodium 141 135-145 mmol/L Potassium 4.7 3.3-5.1 mmol/L Chloride 106 96-108 mmol/L Carbon Dioxide 28 22-29 mmol/L Anion Gap 12 12-20 Blood Urea Nitrogen 21 9-16 mg/dL Creatinine 0.76 0.5-1.4 mg/dL Estimated Glomerular Filt Rate > 60 Chronic Kidney Disease: Estimated GFR < 60 mL/min/1.73m2 Severe Kidney Disease: Estimated GFR < 15 mL/min/1.73m2 Glucose Fasting 110 60-99 mg/dL A fasting glucose from 100-125 mg/dl is considered impaired (pre-diabetes). Calcium 9.6 8.4-10.2 mg/dL Bilirubin Total 0.4 0.0-1.0 mg/dL Aspartate Amino Transferase 61 5-31 U/L Alanine Aminotransferase 163 0-31 U/L Total Protein 7.0 6.5-8.0 g/dL Albumin Level 4.6 3.5-5.0 g/dL Alkaline Phosphatase 93 39-117 U/L Lipid Panel Reviewed date:01/11/2025 01:09:01 PM Interpretation: Performing Lab:[facility], [address] [place] [phone] Notes/Report: Triglycerides 246 <150 mg/dL Desirable Triglyceride: less than 150 mg/dL Borderline High Triglyceride 150-199 mg/dL High Triglyceride: 200-499 mg/dL Very High Triglyceride: greater than or equal to 5OO mg/dL Cholesterol 265 <200 mg/dL Desirable Cholesterol: less than 200 mg/dL Borderline High Cholesterol: 200-239 mg/dL High Cholesterol: greater than 239 mg/dL LDL Cholesterol Calculated 157 <100 mg/dL Desirable LDL: less than 100 mg/dL Near Optimal/Above Optimal LDL: 110-129 mg/dL Borderline High LDL: 130-159 mg/dL High LDL: 160-189 mg/dL Very High LDL: greater than or equal to 190 mg/dL HDL Cholesterol 59 >40 mg/dL Desirable HDL: greater than 40 mg/dL Note: This HDL assay may give artificially low results in patients with liver disease. [facility] [place]. Panel Fa st (Not yet reviewed by provider) Interpretation: Performing Lab:[facility], [address] [place] [phone] Notes/Report: Sodium 140 135-145 mmol/L Potassium 4.1 3.3-5.1 mmol/L Chloride 105 96-108 mmol/L Carbon Dioxide 27 22-29 mmol/L Anion Gap 12 12-20 Blood Urea Nitrogen 15 9-16 mg/dL Creatinine 0.66 0.5-1.4 mg/dL Estimated Glomerular Filt Rate > 60 Chronic Kidney Disease: Estimated GFR < 60 mL/min/1.73m2 Severe Kidney Disease: Estimated GFR < 15 mL/min/1.73m2 Glucose Fasting 106 60-99 mg/dL A fasting glucose from 100-125 mg/dl is considered impaired (pre-diabetes). Calcium 9.1 8.4-10.2 mg/dL Bilirubin Total 0.5 0.0-1.0 mg/dL Aspartate Amino Transferase 26 5-31 U/L Alanine Aminotransferase 31 0-31 U/L Total Protein 7.1 6.5-8.0 g/dL Albumin Level 4.7 3.5-5.0 g/dL Alkaline Phosphatase 70 39-117 U/L Gamma Glutamyl Transpeptidas e (Not yet reviewed by provider) Interpretation: Performing Lab:[address] [phone] Notes/Report: Gamma Glutamyl Transpeptidase 114 7-33 U/L Lipid Panel (Not yet reviewe d by provider) Interpretation: Performing Lab:[address] [phone] Notes/Report: Triglycerides 192 <150 mg/dL Desirable Triglyceride: less than 150 mg/dL Borderline High Triglyceride 150-199 mg/dL High Triglyceride: 200-499 mg/dL Very High Triglyceride: greater than or equal to 5OO mg/dL Cholesterol 230 <200 mg/dL Desirable Cholesterol: less than 200 mg/dL Borderline High Cholesterol: 200-239 mg/dL High Cholesterol: greater than 239 mg/dL LDL Cholesterol Calculated 140 <100 mg/dL Desirable LDL: less than 100 mg/dL Near Optimal/Above Optimal LDL: 110-129 mg/dL Borderline High LDL: 130-159 mg/dL High LDL: 160-189 mg/dL Very High LDL: greater than or equal to 190 mg/dL HDL Cholesterol 52 >40 mg/dL Desirable HDL: greater than 40 mg/dL Note: This HDL assay may give artificially low results in patients with liver disease. Reason For Referral Reason Evaluate and Treat New Onset of Hoarseness of Voice Diagnosis 1 Hoarseness of voice (R49.0) Referral Organization Ej Thomas III, MD Referring Provider First Name Ej Referring Provider Last Name Thomas Referring Provider Speciality Internal edicine Referred Provider [facility], [facility], [facility] Referred Provider Specialty Otolaryngolo gy General Notes [...] Specialty Endocrinolog y General Notes Carmen Zavala [facility] 06/09 01:31:35 PM > ref/demo/progress note/testing faxed to Dr Flaherty interlocking pavement installer, Carmen Zavala [facility] 06/09/2024 01:52:21 PM > pt has appt the Dr Flaherty on 06/15/2024 at 10am Referral Priority Routine Referral Appointment Date 06/15/2024 Reason evaluate and treatme nt yearly pelvic and pap smear Diagnosis 1 Annual physical exam (Z00.00) Referral Organization Ej Thomas III, MD Referring Provider First Name Ej Referring Provider Last Name Thomas Referring Provider Speciality Internal edicine Referred Organization [facility] Referred Provider [facility], [facility] Referred Address [address] [place] [address],[place], [id number], Referred Provider Specialty OB - Gynecol ogy General Notes Carmen Zavala CMA 10/26 01:41:41 PM >ref/demo/progress note /labs faxed to Lucas [facility] Suzanne CMA 11/17/2024 02:22:41 PM > Called [facility] [phone] spoke to Ana rayo stated pt has appt with Dr Westbrook for 01/17/2025 at 8:45am Referral Priority Routine Referral Appointment Date 01/17/2025 Reason Urgent Evaluate and Treat Right Hip Pain Diagnosis 1 Right hip pain (M25. 551) Referral Organization Ej Thomas III, MD Referring Provider First Name Ej Referring Provider Last Name William Referring Provider Speciality Internal M edicine Referred Provider Omayra [facility] Referred Provider Specialty Physical Med icine and Rehabilitation General Notes DWendi 01/13/2025 11:27:18 AM > patient was able to be scheduled and will need the referral faxed to [phone], Wendi Loera 01/16/2025 09:59:20 AM > Referral and progress note was faxed to number provided by patient. Referral Priority Routine Referral Appointment Date 01/19/2025 Medications Medication SIG (Take, Route, Frequency, Duration) Notes Start Date End Date Status Calcium 600 MG 1 tablet with meals Orally Twice a day Active Fish Oil 1000 MG 1 capsule Orally Onc e a day Active Vitamin E 100 UNIT as directed Orally Active Antioxidant - as directed Orally Active Vitamin C 500 MG as directed Orally Active Red Yeast Rice 600 MG as directed Orally Active Magnesium 300 MG 1 capsule with a neno l Orally Once a day Active Acetaminophen 325 MG 2 tablet as needed Orally every 6 hrs 03/04/2018 Active Estrogens, Conjugated 0.625 MG/GM 1 gram Vaginal in Urethra Twice a week Active ZyrTEC Allergy 10 MG 1 tablet Orally Onc e a day 03/04/2018 Active Omeprazole 20 MG 1 capsule 1/2 to 1 h our before morning meal Orally Once a day 10/12/2024 Active Ibuprofen 200 MG 2 tablets with food or milk as needed Orally every 6 hrs 03/04/2018 Active Probiotic 250 MG as directed Orally Active Garcinia Cambogia-Chromium 500-200 MG-MCG as directed Orally Active Vitamin A 2400 MCG (8000 UT) 1 capsule w ith food or milk Orally Once a day Active traZODone HCl 100 MG TAKE 1 TABLET BY MO UTH EVERY DAY AT BEDTIME FOR 30 DAYS Active Immunizations Vaccine Route Administration Date Status [...] Problem Status W/U Status Risk Notes Problem 593093812 Overweight (E66.3) Active confirmed She has gained 2 pounds and remains overweight. Her body mass index is 28. We discussed diet and nutrition and made a plan to lose weight at a rate of one half of a pound per week. Problem 405407260 Seizure disorder (G40.909) Active confirmed No further seizures have occurred in a prolonged period of time. Problem Hyperlipidemia (79491491) Hyperlipidemia, unspecified (E78.5) Active confirmed The current lipid profile shows her cholesterol values to be 242 but the triglycerides are slightly elevated. I recommended a healthy, low animal fat diet with regular exercise and aggressive weight loss. No change in her medications was necessary.She does not wish to take Problem 067726468 Cervical disc disorder with radiculopathy (M50.10) Active confirmed The pain in her neck is almost gone. Her range of motion is normal. She has no numbness or tingling in her extremities. Problem 437063279 Allergic rhinitis, seasonal (J30.2) Active confirmed She has begun to notice peripheral allergies. She is going to use loratadine as needed and has a nasal spray, fluticasone. Problem 891285770 Abnormal liver function tests (R94.5) Active confirmed The elevations are new and the cause is unclear although it may be due to the cholesterol or her recent diet. She declined a statin drug. The values will be repeated in the near future to see if they are resolving. If they do not resolve diagnostic efforts will be made aggressively. Vital Signs Heart Rate 87 /min 01/11/2025 Temperature 98.1 degrees Fahrenheit 01/11/2025 Oximetry 94, 94.0 % 05/06/2024 Blood pressure diastolic 80 mm Hg 01/11/2025 Height 61 in 01/11/2025 Blood pressure systolic 130 mm Hg 01/11/2025 Weight 151 lbs 01/11/2025 BMI 28.53 kg/m2 01/11/2025 Encounters Encounter Location Date Provider Diagnosis Ej Thomas III, MD [address] [place] [address] [place] [address] 03/14/2024 Ej Thomas Hyperlipidemia, unspecified E78.5 ; Overweight E66.3 ; Cervical disc disorder with radiculopathy M50.10 ; Seizure disorder G40.909 and Skin lesion L98.9 Ej Thomas III, MD [address] [place] [address] [place] [address] 05/06/2024 Ej Thomas Hyperlipidemia, unspecified E78.5 ; Hypothyroidism, unspecified E03.9 ; Vocal cord paralysis J38.00 ; Cervical disc disorder with radiculopathy M50.10 ; Seizure disorder G40.909 ; Overweight E66.3 and Allergic rhinitis, seasonal J30.2 Ej Thomas III, MD [address] [place] [address] [place] [address] 07/18/2024 Ej Thomas Exposure to Streptococcal pharyngitis Z20.818 ; Allergic rhinitis, seasonal J30.2 ; Thyroid nodule E04.1 ; Hypothyroidism, unspecified E03.9 ; Overweight E66.3 ; Cervical disc disorder with radiculopathy M50.10 and Seizure disorder G40.909 Ej Thomas III, MD [address] [place] [address] [place] [address] 10/12/2024 Ej Thomas Overweight E66.3 ; Thyroid nodule E04.1 ; Urinary tract infection, site not specified N39.0 ; 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 ; Postmenopausal Z78.0 ; Allergic rhinitis, seasonal J30.2 ; Seizure disorder G40.909 ; Cervical disc disorder with radiculopathy M50.10 ; Hypothyroidism, unspecified E03.9 and Hyperlipidemia, unspecified E78.5 Ej Thomas III, MD [address] [place] [address] [place] [address] 01/11/2025 Ej Thomas Overweight E66.3 ; Abnormal liver function tests R94.5 ; Allergic rhinitis, seasonal J30.2 ; Seizure disorder G40.909 ; Cervical disc disorder with radiculopathy M50.10 and Hyperlipidemia, unspecified E78.5 Ej Thomas III, MD [address] [place] [address] [place] [address] 05/27/2024 Ej Thomas III, MD [address] [place] [address] [place] [address] 06/02/2024 Ej Thomas Thyroid nodule E04.1 Ej Thomas III, MD [address] [place] [address] [place] [address] 06/08/2024 Ej Thomas III, MD [address] [place] [address] [place] [address] 06/15/2024 Ej Thomas III, MD [address] [place] [address] [place] [address] 06/22/2024 Ej Thomas III, MD [address] [place] [address] [place] [address] 07/18/2024 Ej Thomas III, MD [address] [place] [address] [place] [address] 10/10/2024 Ej Thomas Urinary tract infect ion, site not specified N39.0 Ej Thomas III, MD [address] [place] [address] [place] [address] 10/10/2024 Ej Thomas III, MD [address] [place] [address] [place] [address] 12/06/2024 Ej Thomas III, MD [address] [place] [address] [place] [address] 12/06/2024 Ej Thomas Assessments Encounter Date Diagnosis [...] negative.A hemithyroidectomy is planned for February 2025. 01/11/2025 Overweight (ICD-10 - E66.3) She has [...] resolve diagnostic efforts will be made aggressively. 06/02/2024 Thyroid nodule (ICD-10 - E04.1) 10/10/2024 [...] tract infection that was treated with cephalexin. 01/11/2025 Allergic rhinitis, seasonal (ICD-10 - J30.2) She has begun to notice peripheral allergies. She is going to use loratadine as needed and has a nasal spray, fluticasone. 03/14/2024 Seizure disorder (ICD-10 - G40.909) No [...] was continued on current therapy without change. 01/11/2025 Seizure disorder (ICD-10 - G40.909) No further seizures have occurred in a prolonged period of time. 03/14/2024 Skin lesion (ICD-10 - L98.9) Both of these skin lesions appear to be benign. They will be observed until she sees her office services coordinator again. 05/06/2024 Seizure disorder (ICD-10 - G40.909) [...] She is under the care of her air tester. She has had no vaginal bleeding. She denies having any hot flashes or sweats. 01/11/2025 Cervical disc disorder with radiculopathy (ICD-10 - M50.10) The pain in her neck is almost gone. Her range of motion is normal. She has no numbness or tingling in her extremities. 05/06/2024 Overweight (ICD-10 - E66.3) Her body [...] and has a nasal spray, fluticasone. 01/11/2025 Hyperlipidemia, unspecified (ICD-10 - E78.5) The current lipid profile shows her cholesterol values to be 242 but the triglycerides are slightly elevated. I recommended a healthy, low animal fat diet with regular exercise and aggressive weight loss. No change in her medications was necessary.She does not wish to take 05/06/2024 Allergic rhinitis, seasonal (ICD-10 - J30.2) [...] STICK 07/18/2020 PROFILE, FASTING (COMPREHENSIVE METABOLI C) 01/11/2025 PROFILE, FASTING (COMPREHENSIVE METABOLI C) 12/19/2020 PROFILE, FASTING (COMPREHENSIVE METABOLI C) 06/08/2023 PROFILE, FASTING (COMPREHENSIVE METABOLI C) 03/14/2024 PROFILE, FASTING (COMPREHENSIVE METABOLI C) 12/31/2021 PROFILE, FASTING (COMPREHENSIVE METABOLI C) 10/12/2024 PROFILE, FASTING (COMPREHENSIVE METABOLI C) 01/15/2023 PROFILE, FASTING (COMPREHENSIVE METABOLI C) 06/18/2020 PROFILE, FASTING (COMPREHENSIVE METABOLI C) 06/24/2021 PROFILE, FASTING (COMPREHENSIVE METABOLI C) 10/07/2023 PROFILE, FASTING (COMPREHENSIVE METABOLI C) 09/16/2019 PROFILE, FASTING (COMPREHENSIVE METABOLI C) 07/02/2022 PROFILE, RANDOM (COMPREHENSIVE METABOLIC ) 07/01/2019 LIPID PANEL 07/02/2022 LIPID PANEL 12/31/2021 LIPID PANEL 06/18/2020 LIPID PANEL 10/07/2023 LIPID PANEL 07/18/2020 LIPID PANEL 09/16/2019 GGT 09/16/2019 GGT 01/11/2025 GGT 07/01/2019 CBC w DIFF 10/07/2023 CBC w DIFF 06/18/2020 CBC w DIFF 12/19/2020 CBC w DIFF 09/16/2019 CBC w DIFF 07/02/2022 CBC w DIFF 10/12/2024 CBC w DIFF 07/01/2019 CBC w DIFF 12/31/2021 CBC w DIFF 01/15/2023 CBC w DIFF 06/24/2021 SED RATE (ESR) 09/16/2019 URINE CULTURE 12/30/2022 CT NECK WITH CONTRAST 05/06/2024 XR CHEST 2 VIEW PA & LAT 05/06/2024 BONE DENSITY DEXA 10/12/2024 VITAMIN D 25-OH TOTAL 12/31/2021 CBC WITH AUTO DIFF 06/08/2023 CBC WITH AUTO DIFF 03/14/2024 Urinalysis 10/10/2024 [facility] [place]. Panel Fast Gamma Glutamyl Transpeptidase 01/24/2025 Lipid Panel 06/24/2021 Lipid Panel 01/24/2025 Lipid Panel 01/11/2025 Lipid Panel 12/19/2020 Lipid Panel 06/08/2023 Lipid Panel 03/14/2024 Lipid Panel 10/12/2024 Lipid Panel 01/15/2023 Varicella IgG Antibody 03/14/2024 Urine Culture 01/19/2023 US thyroid 06/02/2024 Next Appt Details Provider Name:Ej Thomas , 01/26/2025 09:30:00 AM, [address] [place] [address] K[address] [place], [place], [address], Provider Name:Ej Thomas , 10/16/2025 02:00:00 PM, [address] [place] [address] KIM [place], [place], [address], Insurance Providers Payer Name Payer Address Payer Phone Subscriber Number Group Number Insured Name Patient Relationship to Insured Coverage Start Date Coverage End Date MEDICARE NGS [address] [place] [phone] [id number] Danielle Bañuelos Self - patient is the insured [facility] [address] [place], [place] [id number] Edda Danielle Self - patient is the insured Medical (General) History Medical History History ICD Code [id number] seasonal allergies seizure disorder age 14, no longer treat ed eczema cervical radiculopathy glaucoma Surgical History Surgery Date(Month/Year) No history root canal 09/2023 Hospitalization History Reason Date(Month/Year) No history
--- OUTSIDE RECORDS SUMMARY | 2025-01-24 12:21 | XMS_ITS | Data Portability ---
Author Organization [place] - [facility], Allergy Address [address] [address] Care Team Providers Care Grinding Operator Name Role Phone ALE ALLEN Referring Provider [phone] Assessment No assessment recorded. Plan of Treatment [...] contr ast No observ ation [facility] ed. [facility] [address] [facility] [address], [place], [address], 06/14/2024 12:05:18 07/19/19 25 06/14/2024 CT, neck, soft tissu e, w/ contr ast No observ ation record ed. [email or web address] Not Available 2024 14:16:57 Result Notes None recorded. Problems Name Problem SNOMED Code Status Onset Date Resolution Date Notes Provider Name and Address Organization Details Recorded Time Chronic hoarseness 9293812308724 Active 2024 SYLVAIN DURHAM MD 100 [facility] [address], [address], [place] [facility] 10:35:44 Thyroid nodule 221421148 Active 2024 SYLVAIN DURHAM MD 100 [facility], [address], [place], [address], [facility] - [facility] 08:07:09 Problem Notes None recorded. Procedures Surgical History Date Name Laterality Status Provider Name and Address Organization Details Recorded Time 06/15/19 25 Fiberoptic Laryngoscopy (Comprehensive) completed SYLVAIN DURHAM MD 100 [facility] [address], [place], [address], [facility] - [facility] 06/16/2024 08:07:02 Imaging Results None recorded. Procedure Notes None recorded. Medical Equipment None Reported. Allergies Allergen ID Allergen Name Allergen Category Reaction Reaction Severity Criticality Documentation Date Start Date Code Code System Note Provider Name and Address Organization Details Recorded Time 671624 Substance with sulfonami de structure and antibacte rial mechanism of action (substanc e) medicatio n Not available Not available Not available 06/14/2024 72404 [id number] SNOMED Genie watson [facility] 10:04:17 Medications Name Sig Start Date [...] Updated DateTime 06/14/2024 152.4 cm 28.5 kg/m2 85747.49 tete [place] - [facility] 06/14/2024 10:04:05 Social History None recorded. Functional Status None recorded. Mental Status None recorded. Family History Nothing Reported. Medical History No medical history recorded. Gynecological HistoryNo gynecological history recorded. Obstetrics History GPAL:G 0 P 0 0 0 0 Past Encounters Encounter ID Performer Location Encounter Start Date Encounter Closed Date Diagnosis/Indication Diagnosis SNOMED-CT Code Diagnosis ICD10 Code Diagnosis IMO Codes Diagnosis Note [id number] SYLVAIN DURHAM MD [facility] on [address] [place] [address] 06/14/2024 09:46:39 06/14/2024 10:40:33 Chronic hoarseness 3493945745 105 R49.0 Thankfully , her hoarseness improved [...] voice worsens that she restarted. Thyroid nodule 035564092 E04.1 There is no vocal cord paralysis [...] Arce Member ID Guarantor Name 07/25/2024 1 [facility] [id number] Danielle Bañuelos [id number] 1 Danielle Bañuelos Notes Date Note Type [...] due to patient motion. SYLVAIN DURHAM MD [address] [place] [address], [place], [address], [facility] - [facility] 06/16/2024 08:09:59 OBGyn Episode No OBEpisode recorded.
--- OUTSIDE RECORDS SUMMARY | 2025-01-24 12:22 | XMS_ITS | Clinical Summary ---
Author Organization [facility] Address [address] [place] [address] Phone Care Team Providers Care Director Trust Name Role Phone Ej Thomas MD Primary Care Provider [phone]- [phone] Allergies Active Allergy Reactions Criticality Noted Date [...] PM EDT Hospital Encounter [facility] [address] [place] [address] Feng Mar MD Discharge Disposition: Home or Self Care 12/28/2024 1:50 PM EDT Office Visit [facility] [address] [place] [address] Feng Mar MD Encounter for annual routine gynecological examination (Primary Dx); Breast cancer screening by mammogram; Screening for cervical cancer; Decreased libido; Genitourinary syndrome of menopause 12/16/2024 Telephone [facility] [address] [place] [address] Janelle Gipson MD Appointment from Last 3 [...] FREE TESTOSTERONE 0.23 <0.13 - 0.84 ng/dL [facility] Comment: (NOTE) ADDITIONAL INFORMATION This test was developed and its performance characteristics determined by [facility] in a manner consistent with CLIA requirements. This test has not been cleared or approved by the U.S. Food and Drug Administration. TESTOSTERONE, TOTAL 9.6 8 - 60 ng/dL [facility] Comment: (NOTE) ADDITIONAL INFORMATION Testing performed by Liquid Chromatography-Tandem Mass Spectrometry (LC-MS/MS). This test was developed and its performance characteristics determined by [facility] in a manner consistent with CLIA requirements. This test has not been cleared or approved by the U.S. Food and Drug Administration. Blood 12/28/2024 2:46 PM EDT 12/28/2024 2:48 PM EDT Feng Mar MD LAB BLOOD ORDERABLES Final Re sult [facility] [address] [place] [address] * Pap Test (12/28/2024 12:00 AM EDT) Report [address] [address] Line Pilot: Ramo Stuart MD MANAGER GREEN Cytology Report FINAL DIAGNOSIS A. PAP SMEAR (THIN PREP) CE: SPECIMEN ADEQUACY: Satisfactory for evaluation; transformation zone present. Evaluation limited by scant cellularity. INTERPRETATION: NEGATIVE FOR INTRAEPITHELIAL LESION OR MALIGNANCY. Atrophy. This specimen was analyzed by the automated ThinPrep Imaging System ([employer] and the selected gabriel were reviewed by a cp bleacher operator. Electronically Signed Out By: PARDEEP Cid(ASCP) The [...] : 1960 (Age: 64) Sex: F Institution: [facility] Location: [facility] Date of Collection: 12/28/2024 Date of Reported: 01/03/2025 15:21 Results to: Feng Mar MD, BS [facility] Final Diagnosis A. PAP SMEAR (THIN PREP) CE: SPECIMEN ADEQUACY: Satisfactory for evaluation; transformation zone present. Evaluation limited by scant cellularity. INTERPRETATION: NEGATIVE FOR INTRAEPITHELIAL LESION OR MALIGNANCY. Atrophy. This specimen was analyzed by the automated ThinPrep Imaging System ([employer].) and the selected gabriel were reviewed by a cp bleacher operator. [facility] Conversion Type 12/28/2024 8:11 AM EDT us Feng Mar MD CYTOLOGY ORDERABLES Edited Re sult - Final [facility] [address] [place] [address] from Last 3 Months Insurance MEDICARE PART A & B [employer] MEDEX SUPPLEMENT MEDICARE PART A & B [employer] MEDEX SUPPLEMENT MEDICARE PART A & B [employer] MEDEX SUPPLEMENT MEDICARE PART A & B [employer] MEDEX SUPPLEMENT MEDICARE PART A & B [employer] MEDEX SUPPLEMENT MEDICARE PART A & B [employer] MEDEX SUPPLEMENT Care Teams Director Trust Relationship Specialty Start Date End Date Ej Thomas MD [address] [place] [address] [place] [address] PCP - General 01/15/17 Additional Source Comments The information contained in this document represents components of the legal health record. It is not the complete legal health record.[facility]
== END 2025-01-24 10:11 | disposition home or self-care (01) ==
LOC: HO.LAB 10:10
PROVIDERS: PCP Internal Medicine Medical Oncology; Visit Provider Internal Medicine Medical Oncology
DX: R94.5 Abnormal results of liver function studies (principal); E78.3 Hyperchylomicronemia; E66.3 Overweight
CPT/HCPCS: 36415; 80053; 80061; 82977